=== PATIENT | male | born 2000 | race African-American/Black ===

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

== ENCOUNTER 2023-10-18 13:53 | Inpatient (IN) | payer MEDICAID, OTHER ==
--- NOTE | 2023-10-18 14:27 | ED ---
General Adult HPI - General Chief complaint: Psychiatric Symptoms Stated complaint: Mental Health Time Seen by Provider: 10/18/23 14:00 Source: patient, police, RN notes reviewed, old records reviewed Mode of arrival: wheelchair Limitations: altered mental status - History of Present Illness Initial comments: This is a 23-year-old male who presents emergency Department in the custody of the police. According to the police patient was telling family he was kill somebody or kill himself. Patient was running around and screaming and completely out of control and they arrived and his aggression is so bad. Patient states she's been diagnosed with PTSD and schizophrenia. Doesn't take his medications and hasn't for 2 years. Patient denies any drug use. Patient denies any alcohol use. Patient told relatives that he wanted to kill himself by taking lots of pills. Patient was also talking a lot about the zodiac signs According to the officers and he made other bizarre statements the officers stated that they were unable to keep him on top but of anything.Stated the officers and other bizarre statements and the officers could not keep him on target - Related Data Home Medications Medication Instructions Recorded Confirmed No Known Home Medications 10/18/23 10/18/23 Allergies Allergy/AdvReac Type Severity Reaction Status Date / Time No Known Allergies Allergy Verified 10/18/23 15:55 Review of Systems ROS Statement: Those systems with pertinent positive or pertinent negative responses have been documented in the HPI. ROS Other: All systems not noted in ROS Statement are negative. Past Medical History Past Medical History: No Reported History History of Any Multi-Drug Resistant Organisms: None Reported Past Surgical History: Orthopedic Surgery Additional Past Surgical History / Comment(s): oral surgery Past Anesthesia/Blood Transfusion Reactions: No Reported Reaction Past Psychological History: PTSD, Schizophrenia Smoking Status: Vaper Past Alcohol Use History: Occasional Past Drug Use History: Marijuana - Past Family History Father Family Medical History: Hyperlipidemia Family Family Medical History: No Reported History General Exam - General Exam Comments Initial Comments: GENERAL: Patient is well-developed and well-nourished. Patient is nontoxic and well- hydrated and is in mild distress. ENT: Neck is soft and supple. No significant lymphadenopathy is noted. Oropharynx is clear. Moist mucous membranes. Neck has full range of motion without eliciting any pain. EYES: The sclera were anicteric and conjunctiva were pink and moist. Extraocular movements were intact and pupils were equal round and reactive to light. Eyelids were unremarkable. PULMONARY: Unlabored respirations. Good breath sounds bilaterally. No audible rales rhonchi or wheezing was noted. CARDIOVASCULAR: There is a regular rate and rhythm without any murmurs gallops or rubs. ABDOMEN: Soft and nontender with normal bowel sounds. SKIN: Skin is clear with no lesions or rashes and otherwise unremarkable. NEUROLOGIC: Patient is alert and oriented x3. Cranial nerves II through XII are grossly intact. Motor and sensory are also intact. Normal speech, volume and content. Symmetrical smile. MUSCULOSKELETAL: Normal extremities with adequate strength and full range of motion. LYMPHATICS: No significant lymphadenopathy is noted PSYCHIATRIC: Normal psychiatric evaluation. Limitations: altered mental status Course Vital Signs 10/18/23 13:57 Temperature 98.9 F Pulse Rate 61 Respiratory 20 Rate Blood Pressure 148/118 O2 Sat by Pulse 100 Oximetry Medical Decision Making - Medical Decision Making Was pt. sent in by a medical professional or institution (, PA, [employer], urgent care, hospital, or [facility]...) When possible be specific @ -Patient was brought in in police custody Did you speak to anyone other than the patient for history (EMS, parent, family, police, friend...)? What history was obtained from this source @ -Police officers gave all the history Did you review nursing and triage notes (agree or disagree)? Why? @ -I reviewed and agree with nursing and triage notes Were old charts reviewed (outside hosp., previous admission, EMS record, old EKG, old radiological studies, urgent care reports/EKG's, [facility] records)? Report findings @ -I have reviewed prior charts in prior admissions on this patient Differential Diagnosis (chest pain, altered mental status, abdominal pain women, abdominal pain men, vaginal bleeding, weakness, fever, dyspnea, syncope, headache, dizziness, GI bleed, back pain, seizure, CVA, palpatations, mental health, musculoskeletal)? @ -Differential Mental Health Depression, anxiety, bipolar, psychosis, schizophrenia, borderline personality, situational depression, adjustment disorder, behavioral disorder, brain tumor, malingering, substance abuse, encephalopathy, medication reaction, dementia, hypothyroidism, degenerative neurologic disorder, lupus.... This is not meant to be all-inclusive list EKG interpreted by me (3pts min.). @ -As above X-rays interpreted by me (1pt min.). @ -None done CT interpreted by me (1pt min.). @ -None done U/S interpreted by me (1pt. min.). @ -None done What testing was considered but not performed or refused? (CT, X-rays, U/S, labs)? Why? @ -None What meds were considered but not given or refused? Why? @ -None Did you discuss the management of the patient with other professionals (professionals i.e. , PA, [employer], lab, RT, psych nurse, social welfare clerk, mounter saxophones, teacher, aviation ordnance officer, pillowcase cleaner)? Give summary @ -I spoke with the psychiatric nurse Was smoking cessation discussed for >3mins.? @ -No Was critical care preformed (if so, how long)? @ -No Were there social determinants of health that impacted care today? How? (Homelessness, low income, unemployed, alcoholism, drug addiction, transportation, low edu. Level, literacy, decrease access to med. care, senior care, rehab)? @ -No Was there de-escalation of care discussed even if they declined (Discuss DNR or withdrawal of care, Hospice)? DNR status @ -No What co-morbidities impacted this encounter? (DM, HTN, Smoking, COPD, CAD, Cancer, CVA, ARF, Chemo, Hep., AIDS, mental health diagnosis, sleep apnea, morbid obesity)? @ -None Was patient admitted / discharged? Hospital course, mention meds given and route, prescriptions, significant lab abnormalities, going to OR and other pertinent info. @ -I evaluated patient initially and then EPS evaluated the patient spoke with the psychiatrist agreed the patient needed to be admitted but he will be transferred to another psych facility where they have room. Patient was continuing to the obnoxious yelling out and somewhat aggressive so patient was given Geodon abdomen the emergency department he was resting comfortably. I filled out a clinical certification this patient for his admission. Undiagnosed new problem with uncertain prognosis? @ -No Drug Therapy requiring intensive monitoring for toxicity (Heparin, Nitro, Insulin, Cardizem)? @ -No Were any procedures done? @ -No Diagnosis/symptom? @ -Acute psychosis Acute, or Chronic, or Acute on Chronic? @ -Acute Uncomplicated (without systemic symptoms) or Complicated (systemic symptoms)? @ -Complicated Side effects of treatment? @ -No Exacerbation, Progression, or Severe Exacerbation? @ -No Poses a threat to life or bodily function? How? (Chest pain, [place], [place], pneumonia, PE, COPD, DKA, ARF, appy, cholecystitis, CVA, Diverticulitis, Homicidal, Suicidal, threat to staff... and all critical care pts) @ -No Disposition Clinical Impression: Psychosis Disposition: TRANSFER TO PSYCH HOSP/UNIT Referrals: None,Stated [Primary Care Provider] - 1-2 days Time of Disposition: 19:14
[2023-10-18] MEDS ORDERED: ZIPRASIDONE 20 MG VIAL IM STA (14:37)
[2023-10-18] MEDS ORDERED: LORazepam 2 MG/ML INJ IM STA (14:38)
[2023-10-19 10:17] LABS: Amphetamine Screen,Urine Not Detected (NotDetected); Barbiturate Screen,Urine Not Detected (NotDetected); Benzodiazepines Screen,Urine Detected (NotDetected); Cocaine Screen,Urine Not Detected (NotDetected); Methadone Screen, Urine Not Detected (NotDetected); Opiate Screen,Urine Not Detected (NotDetected); Oxycodone Screen, Urine Not Detected (NotDetected); Phencyclidine Screen,Urine Not Detected (NotDetected); Tricyclic Antidepressant,Urine Not Detected (NotDetected); Urn Cannabinoid Scrn Detected (NotDetected)
[2023-10-19] MEDS ORDERED: LORazepam 2 MG/ML INJ IM PRN (15:21)
[2023-10-19] MEDS ORDERED: LORazepam 1 MG TAB PO PRN (15:21)
[2023-10-19] MEDS ORDERED: IBUPROFEN 600 MG TAB PO PRN (15:21)
[2023-10-19] MEDS ORDERED: MAGNESIUM HYDROXIDE 2,400 MG/30 ML CUP PO PRN (15:21)
[2023-10-19] MEDS ORDERED: HALOPERIDOL LACTATE 5 MG/ML 1 ML VIAL IM PRN (15:21)
[2023-10-20 00:08] LABS: Amorphous Sediment,Urine Few /hpf; Appearance,Urine Turbid (Clear); Bacteria,Urine Rare /hpf; Bilirubin,Urine Negative (Negative); Blood,Urine Small (Negative); Calcium Oxalate Crystals,Urine Few /hpf; Color,Urine Yellow; Glucose,Urine (UA) Negative (Negative); Ketones,Urine Negative (Negative); Leukocyte Esterase,Urine Moderate (Negative); Mucus,Urine Occasional /hpf; Nitrite,Urine Negative (Negative); PH, Urine 5.5 (5.0-8.0); Protein,Urine Negative (Negative); RBC,Urine 2 /hpf (0-5); Specific Gravity,Urine 1.024 (1.001-1.035); Urobilinogen,Urine <2.0 mg/dL (<2.0); WBC,Urine 8 /hpf (0-5)
[2023-10-20] MEDS: NICOTINE 14MG/24HR PATCH TRANSDERM SCH (09:12)
[2023-10-20] MEDS ORDERED: traZODone HCL 50 MG TAB PO PRN (11:50)
[2023-10-20] MEDS ORDERED: LORazepam 1 MG TAB PO PRN (11:50)
--- NOTE | 2023-10-20 12:28 | P.HP ---
Psychiatric H&P - . H&P Date: 10/20/23 History & Physical: Allergies Allergy/AdvReac Type Severity Reaction Status Date / Time No Known Allergies Allergy Verified 10/18/23 15:55 Vital Signs Temp 97.2 F L 10/19/23 17:52 Pulse 64 10/19/23 17:52 Resp 16 10/19/23 17:52 BP 158/70 10/19/23 17:52 Pulse Ox 98 10/19/23 17:52 FiO2 Intake & Output 10/19/23 10/20/23 10/20/23 18:59 06:59 18:59 Weight 65.034 kg Laboratory Last Values Urine Color Yellow 10/19/23 22:44 Urine Appearance Turbid (Clear) 10/19/23 22:44 Urine pH 5.5 (5.0-8.0) 10/19/23 22:44 Ur Specific [place] 1.024 (1.001-1.035) 10/19/23 22:44 Urine Protein Negative (Negative) 10/19/23 22:44 Urine Glucose (UA) Negative (Negative) 10/19/23 22:44 Urine Ketones Negative (Negative) 10/19/23 22:44 Urine Blood Small (Negative) H 10/19/23 22:44 Urine Nitrite Negative (Negative) 10/19/23 22:44 Urine Bilirubin Negative (Negative) 10/19/23 22:44 Urine Urobilinogen <2.0 mg/dL (<2.0) 10/19/23 22:44 Ur Leukocyte Esterase Moderate (Negative) H 10/19/23 22:44 Urine RBC 2 /hpf (0-5) 10/19/23 22:44 Urine WBC 8 /hpf (0-5) H 10/19/23 22:44 Calcium Oxalate Crystal Few /hpf (None) H 10/19/23 22:44 Amorphous Sediment Few /hpf (None) H 10/19/23 22:44 Urine Bacteria Rare /hpf (None) H 10/19/23 22:44 Urine Mucus Occasional /hpf (None) H 10/19/23 22:44 Urine Opiates Screen Not Detected (NotDetected) 10/19/23 09:00 Ur Oxycodone Screen Not Detected (NotDetected) 10/19/23 09:00 Urine Methadone Screen Not Detected (NotDetected) 10/19/23 09:00 Ur Propoxyphene Screen Not Detected (NotDetected) 10/19/23 09:00 Ur Barbiturates Screen Not Detected (NotDetected) 10/19/23 09:00 U Tricyclic Antidepress Not Detected (NotDetected) 10/19/23 09:00 Ur Phencyclidine Scrn Not Detected (NotDetected) 10/19/23 09:00 Ur Amphetamines Screen Not Detected (NotDetected) 10/19/23 09:00 U Methamphetamines Scrn Not Detected (NotDetected) 10/19/23 09:00 U Benzodiazepines Scrn Detected (NotDetected) H 10/19/23 09:00 Urine Cocaine Screen Not Detected (NotDetected) 10/19/23 09:00 U Marijuana (THC) Screen Detected (NotDetected) H 10/19/23 09:00 SARS-CoV-2 (PCR) Not Detected (Not Detectd) 10/19/23 13:20 10/20/23 10:00 IDENTIFYING DATA: This patient is a 23 year old male, no children, currently living with a friend, is employed [employer]. HISTORY OF PRESENT ILLNESS: As per ER note "This is a 23-year-old male who presents emergency Department in the custody of the police. According to the police patient was telling family he was kill somebody or kill himself. Patient was running around and screaming and completely out of control and they arrived and his aggression is so bad. Patient states she's been diagnosed with PTSD and schizophrenia. Doesn't take his medications and hasn't for 2 years. Patient denies any drug use. Patient denies any alcohol use. Patient told relatives that he wanted to kill himself by taking lots of pills. Patient was also talking a lot about the zodiac signs According to the officers and he made other bizarre statements the officers stated that they were unable to keep him on top but of anything.Stated the officers and other bizarre statements and the officers could not keep him on target". Patient says what brought him into the hospital this admission, is because he is depressed, and is "just that way as a person". his previous attempt at suicide was a "cry for help" Says he knows who shot and killed his cousin, and was trying to take that information to the scrap burner, and the police thinks he's crazy, and brought him in. patient is rambling, flight of ideas, loose associations. he is also tangential. Claims his mood has been "amazing" and has no anxiety, no HI/SI, no AH/VH. Claims his sleep is 'great" and his appetite is great. Denies use/need for psych medication, and historically has not been compliant with previous treatment. Patient agreed to be started on medication, and tech writer will monitor for side effects. Patient is on a current court. Patient admits to using vaping and using marijuana, and was counseled on obstaining. PAST PSYCHIATRIC HISTORY: Patient has a a history of schizophrenia and cannabis use disorder. Patient denies being on any psychiatric medications. Patient was last seen at [facility] by Dr Baker in March of this year, and currently not taking any medications. he was previously on Abilify Maintenna 400 mg IM through [facility] however has not been taking it for several months. Patient has prior suicide attempts in the past, patient [place] the bridge [place] With last admission to the [facility] in January of this year. Past Medical History: No Reported History History of Any Multi-Drug Resistant Organisms: None Reported Past Surgical History: Orthopedic Surgery Past Anesthesia/Blood Transfusion Reactions: No Reported Reaction Past Psychological History: PTSD, depression. Smoking Status: Never smoker ALLERGIES: as per EMR. CHEMICAL DEPENDENCY HISTORY: as per HPI. FAMILY PSYCHIATRIC/SUBSTANCE USE HISTORY: denies SOCIAL HISTORY: Patient was born and raised in [facility]. He states that he completed high school. States that he works [employer] boarding passing. He states that he now lives with a friend. He denies any legal history. MENTAL STATUS EXAM: General Appearance: Patient appears to be stated age is alert, short hair, estrada, athletic. Patient appears to have good hygiene and grooming wearing street clothes, good eye contact. Behavior: Patient is calmly seated without any agitated behavior. Rambling, difficult to redirect. Speech: Patient's speech is fluent and nonpressured. Mood/Affect: Patient reports their mood is "great", affect is incongruent Suicidality/Homicidality: Patient denies having any suicidal or homicidal ideation intent or plan. Perceptions: Patient denies any visual hallucinations and denies any auditory hallucinations Though content/process: There is no evidence of any delusional thought content. The patient is rambling, tangential, loose associations, flight of ideas. Memory and concentration: AOX3, grossly intact for the purposes of this session. Can spell "WORLD" backwards Judgment and insight: poor/superficial. IMPRESSIONS: Schizoaffective disorder Cannabis use disorder Nicotine dependence STRENGTHS/WEAKNESSES: strength is that patient is resilient. Weakness is that patient has is impulsive INTELLECT: average PLAN: -Patient is admitted under involuntary status to MHU for stabilization of psychiatric symptoms and safety. Patient is on a current court order.Patient signed medication consent, and was placed in patients chart. -Medications : Will start patient on abilify po 7.5 mg daily for psychosis/mood stabilization. plan to transition patient back onto IRAHETA prior to d/c to ensure compliance. trazodone 50 mg prn qhs for insomnia. -Ativan and Haldol PRN for agitation/aggression -Patient was counselled on substance abuse and desired to cut back on use -Patient was informed of the risks, benefits and side effects of the medication -Internal Medicine consult to perform medical evaluation and physical. -NRT - nicotine patch -SW on board for discharge planning. Encourage patient to participate in groups to work on coping skills. Patient is on a current court order.
[2023-10-20] MEDS: ARIPiprazole 5 MG TAB PO SCH (13:38)
[2023-10-20 14:18] LABS: Basophils % (A) 1 %; Eosinophils % (A) 1 %; HCT 46.9 % (39.0-53.0); HGB 15.6 gm/dL (13.0-17.5); Lymphocytes # (A) 1.3 k/uL (1.0-4.8); Lymphocytes % (A) 23 %; MCH 27.9 pg (25.0-35.0); MCHC 33.2 g/dL (31.0-37.0); MCV 83.9 fL (80.0-100.0); Monocytes # (A) 0.2 k/uL (0-1.0); Monocytes % (A) 3 %; Neutrophils # (A) 4.1 k/uL (1.3-7.7); Neutrophils % (A) 71 %; Platelet Count 208 k/uL (150-450); RBC 5.59 m/uL (4.30-5.90); RDW 13.2 % (11.5-15.5); WBC 5.8 k/uL (3.8-10.6)
[2023-10-20 14:27] LABS: ALT 25 U/L (4-49); AST 51 U/L (17-59); African American GFR (CKD) >90 (>60 ml/min/1.73 sqM); Albumin 4.9 g/dL (3.5-5.0); Alkaline Phosphatase 71 U/L (38-126); Anion Gap 16 mmol/L; Blood Urea Nitrogen 11 mg/dL (9-20); Calcium 9.9 mg/dL (8.4-10.2); Carbon Dioxide 21 mmol/L (22-30); Chloride 102 mmol/L (98-107); Glucose 159 mg/dL (74-99); Non-African American GFR(CKD) >90 (>60 ml/min/1.73 sqM); Potassium 4.6 mmol/L (3.5-5.1); Sodium 139 mmol/L (137-145); Total Bilirubin 0.7 mg/dL (0.2-1.3); Total Protein 7.9 g/dL (6.3-8.2)
[2023-10-20 20:27] LABS: Chol/HDL Ratio 1.75 Ratio; LDL Cholesterol,Calculated 39.5 mg/dL (0.0-131.0); VLDL Calculation 6.04 mg/dL (5.00-40.00)
[2023-10-20] MEDS: haloperidoL 5 MG TAB PO PRN (22:21)
--- NOTE | 2023-10-21 02:11 | P.PN ---
Progress Note - Text Progress Note Date: 10/21/23 Attempted to see the patient in the mental health unit. Informed by the mental health unit RN that the patient is currently sedated and not appropriate for evaluation.
[2023-10-21] MEDS: ARIPiprazole 5 MG TAB PO SCH (07:45)
[2023-10-21] MEDS: NICOTINE 14MG/24HR PATCH TRANSDERM SCH (07:45)
--- NOTE | 2023-10-21 10:33 | P.PN ---
Progress Note - Text Progress Note Date: 10/21/23 Interval History: Patient was seen wandering the hallways and was directable and agreeable to sp heber with flex o writer operator in the office. Patient says he feels amazing, and is going to groups regularly. States his appetite is great. Patient still continues to ramble at times. he continues to be tangetial and have loose assocaitions and refers flex o writer operator back to how he was feeling in "2020". Patient continues to have poor insight and judgment, improving mildly. At this time patient denies any suicidal or homical ideations, intent or plan. Patient denies any auditory, visual hallucinations and denies any paranoia or delusions. Patient denies any side effects from the medications and has been compliant with meds. patient recieved haldol and ativan prn last night however was not documented what had occured and patient states that he needed it "too sleep". Mental Status Exam: General Appearance: Patient appears to be stated age is alert, short hair, estrada, athletic. Patient appears to have good hygiene and grooming wearing street clothes, good eye contact. Behavior: [Patient is calmly seated without any agitated behavior. Rambling, difficult to redirect. Improving mildly Speech: Patient's speech is fluent and nonpressured. Mood/Affect: Mood is improving mildly, affect is congruent and constricted. Suicidality/Homicidality: Patient denies having any suicidal or homicidal ideation intent or plan. Perceptions: Patient denies any visual hallucinations and denies any auditory hallucinations Though content/process: [There is no evidence of any delusional thought content and thought process is linear and goal-directed. The patient is rambling, tangential, loose associations, flight of ideas. Improving mildly Memory and concentration: AOX3, grossly intact for the purposes of this session Judgment and insight: Poor/superficial, improving mildly Assessment Schizoaffective disorder Cannabis use disorder Nicotine dependence Plan: -Patient continues to meet criteria for inpatient psychiatric admission for symptom stabilization and safety. Patient is on a current court order has signed the medication consent and it was placed in the patient's chart -Medications: increase abilify po 10 mg daily for psychosis/mood stabilization. plan to transition patient back onto IRAHETA prior to d/c to ensure compliance. increase trazodone 100 mg prn qhs for insomnia. -When necessary Ativan and Haldol for agitation/aggression. -NRT - [nicotine patch] -SW on board for discharge planning. Encouraged the patient to participate in milieu. Patient is on a court order
[2023-10-21] MEDS ORDERED: LORazepam 1 MG TAB PO STA (11:49)
[2023-10-21] MEDS ORDERED: traZODone HCL 100 MG TAB PO SCH (21:00)
[2023-10-22] MEDS: NICOTINE 14MG/24HR PATCH TRANSDERM SCH (08:17)
[2023-10-22] MEDS ORDERED: ARIPiprazole 10 MG TAB PO SCH (09:00)
[2023-10-22] MEDS: haloperidoL 5 MG TAB PO PRN (10:14)
[2023-10-22] MEDS: LORazepam 1 MG TAB PO PRN (10:14)
--- NOTE | 2023-10-22 10:47 | P.PN ---
Progress Note - Text Progress Note Date: 10/22/23 Interval History: Patient was seen wandering the hallways and was directable and agreeable to sp heber with typewriters functional tester in the office. Patient says he feels ok, but irritated today, from lack of sleep. Patient is going to groups regularly. States his appetite is good. Patient still continues to ramble at times, however is improving.Patient continues to have poor insight and judgment, improving mildly. Patient claims his sleep was not too good last night. At this time patient denies any suicidal or homical ideations, intent or plan. Patient denies any auditory, visual hallucinations and denies any paranoia or delusions. Patient denies any side effects from the medications and has been compliant with meds. Mental Status Exam: General Appearance: Patient appears to be stated age is alert, short hair, estrada, athletic. Patient appears to have good hygiene and grooming wearing street clothes, good eye contact. Behavior: Patient is calmly seated without any agitated behavior. Rambling, difficult to redirect. Improving mildly Speech: Patient's speech is fluent and nonpressured. Mood/Affect: Mood is improving mildly, affect is congruent and constricted. Suicidality/Homicidality: Patient denies having any suicidal or homicidal ideation intent or plan. Perceptions: Patient denies any visual hallucinations and denies any auditory hallucinations Though content/process: There is no evidence of any delusional thought content and thought process is linear and goal-directed. The patient is rambling, Improving mildly Memory and concentration: AOX3, grossly intact for the purposes of this session Judgment and insight: Poor/superficial, improving mildly Assessment Schizoaffective disorder Cannabis use disorder Nicotine dependence Plan: -Patient continues to meet criteria for inpatient psychiatric admission for symptom stabilization and safety. Patient is on a current court order has signed the medication consent and it was placed in the patient's chart -Medications: increase abilify po 15 mg daily for psychosis/mood stabilization. plan to transition patient back onto IRAHETA prior to d/c to ensure compliance likely over the weekend. increase trazodone 150 mg qhs for insomnia. Add benedryl 25 qhs for sleep. -When necessary Ativan and Haldol for agitation/aggression. -NRT - [nicotine patch] -SW on board for discharge planning. Encouraged the patient to participate in milieu. Patient is on a court order. Likely discharge early next week likely wednesday vs wednesday?
[2023-10-22] MEDS: ACETAMINOPHEN TAB 325 MG TAB PO PRN (13:06)
[2023-10-22] MEDS: traZODone HCL 50 MG TAB PO SCH (20:28)
[2023-10-23 07:17] VITALS: RESP 16
[2023-10-23] MEDS: NICOTINE 14MG/24HR PATCH TRANSDERM SCH (08:17)
[2023-10-23] MEDS: ARIPiprazole 15 MG TAB PO SCH (08:18)
--- NOTE | 2023-10-23 09:25 | P.PN ---
Progress Note - Text Progress Note Date: 10/23/23 Interval History: Patient was seen wandering the hallways and was directable and agreeable to angie buck with abstract writer in the office. Patient claims that he feels a bit better today. Claims that he wanted to take just 1 tablet of the trazodone at nighttime however was given 350 mg tablets. He states that other night he slept well, has been going to some groups. Appears to be more goal oriented and less bizarre during conversation. Less focused on discharge today. Denying any anxiety. At this time patient denies any suicidal or homical ideations, intent or plan. Patient denies any auditory, visual hallucinations and denies any paranoia or delusions. Patient denies any side effects from the medications and has been compliant with meds. Mental Status Exam: General Appearance: Patient appears to be stated age is alert, short hair, estrada, athletic. Patient appears to have good hygiene and grooming wearing street clothes, improving eye contact. Behavior: Patient is calmly seated without any agitated behavior. less Rambling Speech: Patient's speech is fluent and nonpressured. Mood/Affect: Mood is improving mildly, affect is congruent and constricted. Suicidality/Homicidality: Patient denies having any suicidal or homicidal ideation intent or plan. Perceptions: Patient denies any visual hallucinations and denies any auditory hallucinations Though content/process: There is no evidence of any delusional thought content and thought process is linear and goal-directed. Memory and concentration: AOX3, grossly intact for the purposes of this session Judgment and insight: Poor/superficial, improving mildly Assessment Schizoaffective disorder Cannabis use disorder Nicotine dependence Plan: -Patient continues to meet criteria for inpatient psychiatric admission for symptom stabilization and safety. Patient is on a current court order has signed the medication consent and it was placed in the patient's chart -Medications: abilify po 15 mg daily for psychosis/mood stabilization. plan to transition patient back onto IRAHETA prior to d/c to ensure compliance likely over the weekend. trazodone 150 mg qhs for insomnia. Add benedryl 25 qhs for sleep. -When necessary Ativan and Haldol for agitation/aggression. -NRT - [nicotine patch] -SW on board for discharge planning. Encouraged the patient to participate in milieu. Patient is on a court order. Likely discharge early next week likely wednesday vs wednesday?
[2023-10-23] MEDS: MAG HYDROX/AL HYDROX/SIMETH 30 ML CUP PO PRN (11:17)
[2023-10-23] MEDS: traZODone HCL 50 MG TAB PO SCH (21:40)
[2023-10-24] MEDS: NICOTINE 14MG/24HR PATCH TRANSDERM SCH (08:31)
[2023-10-24] MEDS: ARIPiprazole 15 MG TAB PO SCH (08:31)
[2023-10-24] MEDS ORDERED: diphenhydrAMINE 25 MG CAP PO PRN (11:15)
--- NOTE | 2023-10-24 11:25 | P.PN ---
Progress Note - Text Progress Note Date: 10/24/23 Interval History: Patient was seen wandering the hallways and also sitting in on in the lounge w ith other patients and was directable and agreeable to speak with com writer in the office. Patient appears to be more directable today, claims that he is feeling better. States that he only took 2 tablets of the trazodone last night. Loom Repairer spoke with him about looking at the dosages rather in the amount of tablets as patient Referred into the Different Tablets That He Took of Trazodone in the pas t. He Claims That He Is Doing a Bit Better and Patient claims that he feels a bit better today. He states that he slept fairly last night, wants to have his trazodone cut down. he is less focused on discharge today. Denying any anxiety. At this time patient denies any suicidal or homical ideations, intent or plan. Patient denies any auditory, visual hallucinations and denies any paranoia or delusions. Patient denies any side effects from the medications and has been compliant with meds. Mental Status Exam: General Appearance: Patient appears to be stated age is alert, short hair, estrada, athletic. Patient appears to have good hygiene and grooming wearing street clothes, improving eye contact. Behavior: Patient is calmly seated without any agitated behavior. less Rambling Speech: Patient's speech is fluent and nonpressured. Mood/Affect: Mood is improving mildly, affect is congruent and constricted. Suicidality/Homicidality: Patient denies having any suicidal or homicidal ideation intent or plan. Perceptions: Patient denies any visual hallucinations and denies any auditory hallucinations Though content/process: There is no evidence of any delusional thought content and thought process is linear and goal-directed. Memory and concentration: AOX3, grossly intact for the purposes of this session Judgment and insight: improving mildly Assessment Schizoaffective disorder Cannabis use disorder Nicotine dependence Plan: -Patient continues to meet criteria for inpatient psychiatric admission for symptom stabilization and safety. Patient is on a current court order has si gned the medication consent and it was placed in the patient's chart -Medications: abilify po 15 mg daily for psychosis/mood stabilization. plan to transition patient back onto IRAHETA prior to d/c to ensure compliance likely over the weekend. decrease trazodone 100 mg qhs for insomnia. Add benedryl 25 qhs for sleep. -When necessary Ativan and Haldol for agitation/aggression. -NRT - [nicotine patch] -SW on board for discharge planning. Encouraged the patient to participate in milieu. Patient is on a court order. Likely discharge wednesday vs wednesday once patient transitions back onto IRAHETA.
[2023-10-24] MEDS: ACETAMINOPHEN TAB 325 MG TAB PO PRN (18:25)
[2023-10-24] MEDS ORDERED: traZODone HCL 100 MG TAB PO SCH (21:00)
[2023-10-25] MEDS: MAG HYDROX/AL HYDROX/SIMETH 30 ML CUP PO PRN (06:28)
[2023-10-25] MEDS: LORazepam 1 MG TAB PO PRN (06:49)
[2023-10-25] MEDS: ARIPiprazole 15 MG TAB PO SCH (09:02)
[2023-10-25] MEDS: NICOTINE 14MG/24HR PATCH TRANSDERM SCH (09:02)
[2023-10-25] MEDS ORDERED: MIRTAZAPINE 15 MG TAB PO PRN (11:23)
--- NOTE | 2023-10-25 11:33 | P.PN ---
Progress Note - Text Progress Note Date: 10/25/23 Patient was seen wandering the hallways and agreeable to speak with song writer in the office. Patient claims that is is 'pretty good' today. He states that he was very restless last night, and needed medication to sleep, then felt it was too much medication, and was having tightness in his chest and felt like he was going to . he had an ecg done last night which was reviewed. Patient claims to be getting along with his peers well, and is going to groups. Patient focused on discharge, and is continuing to minimize his need for treatment, which is mildly improving. Denying any anxiety or depression. At this time patient denies any suicidal or homical ideations, intent or plan. Patient denies any auditory, visual hallucinations and denies any paranoia or delusions. Patient denies any side effects from the medications and has been compliant with meds. Spoke with patient about transitioning him onto a IRAHETA today to ensure compliance and patient agreed to take this today. Mental Status Exam: General Appearance: Patient appears to be stated age is alert, short hair, estrada, athletic. Patient appears to have good hygiene and grooming wearing street clothes, improving eye contact. Behavior: Patient is calmly seated without any agitated behavior. less Rambling Speech: Patient's speech is fluent and nonpressured. Mood/Affect: Mood is improving mildly, affect is congruent and constricted. Suicidality/Homicidality: Patient denies having any suicidal or homicidal ideation intent or plan. Perceptions: Patient denies any visual hallucinations and denies any auditory hallucinations Though content/process: There is no evidence of any delusional thought content and thought process is linear and goal-directed. Memory and concentration: AOX3, grossly intact for the purposes of this session Judgment and insight: improving Assessment Schizoaffective disorder Cannabis use disorder Nicotine dependence Plan: -Patient continues to meet criteria for inpatient psychiatric admission for symptom stabilization and safety. Patient is on a current court order has signed the medication consent and it was placed in the patient's chart -Medications: abilify po 15 mg daily for psychosis/mood stabilization. decrease trazodone 50mg qhs for insomnia. benedryl 25 qhs for sleep. Add Remeron 15mg qhs prn. Abilify Maintana 400mg qmonthly, starting today. -When necessary Ativan and Haldol for agitation/aggression -NRT - [nicotine patch] -SW on board for discharge planning. Encouraged the patient to participate in milieu. Patient is on a court order. Likely discharge wednesday or wednesday if patient is improving.
[2023-10-25] MEDS ORDERED: ARIPiprazole IM 400 MG VIAL (NO COST) PHARMACY STOCK IM ONE (12:00)
[2023-10-25] MEDS ORDERED: traZODone HCL 50 MG TAB PO SCH (21:00)
[2023-10-26 06:30] VITALS: BP 120/59; PULSE 66; TEMP 97.8
[2023-10-26] MEDS: NICOTINE 14MG/24HR PATCH TRANSDERM SCH (07:15)
[2023-10-26] MEDS: ARIPiprazole 15 MG TAB PO SCH (08:14)
--- NOTE | 2023-10-26 11:52 | P.DS ---
Providers Date of admission: 10/19/23 15:17 Expected date of discharge: 10/26/23 Attending physician: Mata Peterson MD Consults: 10/19/23 15:21 Consult Physician Routine Consulting Provider: Za Flynn Consult Reason/Comments: H&P and medical Do you want consulting provider notified?: Yes Primary care physician: Stated None - Discharge Diagnosis(es) (1) Schizoaffective disorder Current Visit: Yes Status: Acute Priority: High (2) Cannabis use disorder Current Visit: Yes Status: Acute Priority: Medium (3) Nicotine dependence Current Visit: Yes Status: Acute Priority: Low Hospital Course: Admission HPI: Admission note was completed by display card writer "This is a 23-year-old male who presents emergency Department in the custody of the police. According to the police patient was telling family he was kill somebody or kill himself. Patient was running around and screaming and completely out of control and they arrived and his aggression is so bad. Patient states she's been diagnosed with PTSD and schizophrenia. Doesn't take his medications and hasn't for 2 years. Patient denies any drug use. Patient denies any alcohol use. Patient told relatives that he wanted to kill himself by taking lots of pills. Patient was also talking a lot about the zodiac signs According to the officers and he made other bizarre statements the officers stated that they were unable to keep him on top but of anything.Stated the officers and other bizarre statements and the officers could not keep him on target". Patient says what brought him into the hospital this admission, is because he is depressed, and is "just that way as a person". his previous attempt at suicide was a "cry for help" Says he knows who shot and killed his cousin, and was trying to take that information to the bingo manager, and the police thinks he's crazy, and brought him in. patient is rambling, flight of ideas, loose associations. he is also tangential. Claims his mood has been "amazing" and has no anxiety, no HI/SI, no AH/VH. Claims his sleep is 'great" and his appetite is great. Denies use/need for psych medication, and historically has not been compliant with previous treatment. Patient agreed to be started on medication, and display card writer will monitor for side effects. Patient is on a current court. Patient admits to using vaping and using marijuana, and was counseled on obstaining." Hospital course: Upon admission to the unit patient was [admitted involuntarily on an active court order for mental health treatment. Patient was initially bizarre however with time and treatment he eventually got along well with other patients on the unit and followed unit protocol. Patient was compliant with the medications and denied any side effects throughout hospital course. Patient was started on Abilify increased her dose of 50 mg by mouth for psychosis/mood stabilization. Patient was agreeable to be transitioned back onto Abilify Maintenna 400 mg IM given on 10/25, next dose will be due in one month on 11/19. Trazodone was decreased down to a dose of 50 mg daily at bedtime for insomnia/mood. Patient spoke of his stressors and engaged in therapy both group and individual. Patient was also seen by medical team for history and physical exam. Throughout the course of the hospitalization patient gradually improved with regards to mood, anxiety, mood stabilization, sleep and returned back to their baseline level of functioning. On the day of discharge patient denied any suicidal or homicidal ideations intent or plan denied any auditory or visual hallucinations. Patient endorsed wanting to live for his health and family. The patient denied any access to guns or weapons. Patient denied any paranoia and did not endorse any delusions. Patient does have a significant history of substance abuse and was counseled on abstaining from all substances including alcohol and marijuana. Patient elected to do outpatient substance use treatment program through [facility]. Patient was also counseled on the medications and need for regular compliance and was encouraged to follow-up with their outpatient appointment for mental health and also for primary care. Prior to discharge a family meeting will be arranged by social science analyst to answer any questions and ensure safety upon discharge. Patient will be discharged today back to his girlfriend's house and close [facility] follow-up. Mental status exam on day discharge: General Appearance: Patient appears to be stated age is alert, short hair, estrada, athletic. Patient appears to have good hygiene and grooming wearing street clothes, good eye contact. Behavior: Patient is calmly seated without any agitated behavior. Speech: Patient's speech is fluent and nonpressured. Mood/Affect: Patient reports their mood is "good", affect is congruent Suicidality/Homicidality: Patient denies having any suicidal or homicidal ideation intent or plan. Perceptions: Patient denies any visual hallucinations and denies any auditory hallucinations Though content/process: There is no evidence of any delusional thought content. more goal oriented and logical. Memory and concentration: AOX3, grossly intact for the purposes of this session. Can spell "WORLD" backwards Judgment and insight: improving mildly. Impression: Schizoaffective disorder Cannabis use disorder Nicotine dependence Plan: -Continue with discharge today as patient has improved and stabilized psychiatrically and is not currently an imminent threat to himself and/or others. Patient will remain at chronically elevated risk for harm to self and/or others due to his impulsivity and substance abuse. -Continue medications: Abilify by mouth 15 mg po for 13 more days and discontinue. Patient was given Abilify Maintenna 400 mg IM on 10/25, next dose will be due in one month on 10/20. Trazodone 50 mg daily at bedtime for insomnia/mood. -Patient was counseled on the need for medication compliance and appropriate follow-up at mental health and also primary care for medical issues. Patient verbalized understanding and agreed. -Social work to arrange for and conduct family meeting to ensure safety upon discharge and answer any questions/concerns. Social work also to arrange for patients follow up appointments with [facility] for psychiatric care along with follow up with primary care provider. -Patient counseled on abstaining from recreational drugs and marijuana and alcohol. Was informed/educated on the adverse effects on their physical and mental health. Patient verbally agreed and understood. -Patient was instructed to return to the hospital or seek immediate medical care if their psychiatric or medical symptoms do worsen or reoccur. Allergies Allergy/AdvReac Type Severity Reaction Status Date / Time No Known Allergies Allergy Verified 10/18/23 15:55 Laboratory Results WBC 5.8 k/uL (3.8-10.6) 10/20/23 13:40 RBC 5.59 m/uL (4.30-5.90) 10/20/23 13:40 Hgb 15.6 gm/dL (13.0-17.5) 10/20/23 13:40 Hct 46.9 % (39.0-53.0) 10/20/23 13:40 MCV 83.9 fL (80.0-100.0) 10/20/23 13:40 MCH 27.9 pg (25.0-35.0) 10/20/23 13:40 MCHC 33.2 g/dL (31.0-37.0) 10/20/23 13:40 RDW 13.2 % (11.5-15.5) 10/20/23 13:40 Plt Count 208 k/uL (150-450) 10/20/23 13:40 MPV 8.0 10/20/23 13:40 Neutrophils % 71 % 10/20/23 13:40 Lymphocytes % 23 % 10/20/23 13:40 Monocytes % 3 % 10/20/23 13:40 Eosinophils % 1 % 10/20/23 13:40 Basophils % 1 % 10/20/23 13:40 Neutrophils # 4.1 k/uL (1.3-7.7) 10/20/23 13:40 Lymphocytes # 1.3 k/uL (1.0-4.8) 10/20/23 13:40 Monocytes # 0.2 k/uL (0-1.0) 10/20/23 13:40 Eosinophils # 0.0 k/uL (0-0.7) 10/20/23 13:40 Basophils # 0.0 k/uL (0-0.2) 10/20/23 13:40 Sodium 139 mmol/L (137-145) 10/20/23 13:40 Potassium 4.6 mmol/L (3.5-5.1) 10/20/23 13:40 Chloride 102 mmol/L (98-107) 10/20/23 13:40 Carbon Dioxide 21 mmol/L (22-30) L 10/20/23 13:40 Anion Gap 16 mmol/L 10/20/23 13:40 BUN 11 mg/dL (9-20) 10/20/23 13:40 Creatinine 0.76 mg/dL (0.66-1.25) 10/20/23 13:40 Est GFR (CKD-EPI)AfAm >90 (>60 ml/min/1.73 sqM) 10/20/23 13:40 Est GFR (CKD-EPI)NonAf >90 (>60 ml/min/1.73 sqM) 10/20/23 13:40 Glucose 159 mg/dL (74-99) H 10/20/23 13:[address] Glu mg/dL 114 mg/dL 10/20/23 13:40 Hemoglobin A1c 5.6 % (<=6.0) 10/20/23 13:40 Calcium 9.9 mg/dL (8.4-10.2) 10/20/23 13:40 Total Bilirubin 0.7 mg/dL (0.2-1.3) 10/20/23 13:40 AST 51 U/L (17-59) 10/20/23 13:40 ALT 25 U/L (4-49) 10/20/23 13:40 Alkaline Phosphatase 71 U/L (38-126) 10/20/23 13:40 Total Protein 7.9 g/dL (6.3-8.2) 10/20/23 13:40 Albumin 4.9 g/dL (3.5-5.0) 10/20/23 13:40 Triglycerides 30.20 mg/dL (0.00-149.00) 10/20/23 13:40 Cholesterol 106.00 mg/dL (0.00-200.00) 10/20/23 13:40 LDL Cholesterol, Calc 39.5 mg/dL (0.0-131.0) 10/20/23 13:40 VLDL Cholesterol, Calc 6.04 mg/dL (5.00-40.00) 10/20/23 13:40 HDL Cholesterol 60.50 mg/dL (40.00-60.00) H 10/20/23 13:40 Cholesterol/HDL Ratio 1.75 Ratio 10/20/23 13:40 TSH 0.832 mIU/L (0.465-4.680) 10/20/23 13:40 Urine Color Yellow 10/19/23 22:44 Urine Appearance Turbid (Clear) 10/19/23 22:44 Urine pH 5.5 (5.0-8.0) 10/19/23 22:44 Ur Specific Wallace 1.024 (1.001-1.035) 10/19/23 22:44 Urine Protein Negative (Negative) 10/19/23 22:44 Urine Glucose (UA) Negative (Negative) 10/19/23 22:44 Urine Ketones Negative (Negative) 10/19/23 22:44 Urine Blood Small (Negative) H 10/19/23 22:44 Urine Nitrite Negative (Negative) 10/19/23 22:44 Urine Bilirubin Negative (Negative) 10/19/23 22:44 Urine Urobilinogen <2.0 mg/dL (<2.0) 10/19/23 22:44 Ur Leukocyte Esterase Moderate (Negative) H 10/19/23 22:44 Urine RBC 2 /hpf (0-5) 10/19/23 22:44 Urine WBC 8 /hpf (0-5) H 10/19/23 22:44 Calcium Oxalate Crystal Few /hpf (None) H 10/19/23 22:44 Amorphous Sediment Few /hpf (None) H 10/19/23 22:44 Urine Bacteria Rare /hpf (None) H 10/19/23 22:44 Urine Mucus Occasional /hpf (None) H 10/19/23 22:44 Urine Opiates Screen Not Detected (NotDetected) 10/19/23 09:00 Ur Oxycodone Screen Not Detected (NotDetected) 10/19/23 09:00 Urine Methadone Screen Not Detected (NotDetected) 10/19/23 09:00 Ur Propoxyphene Screen Not Detected (NotDetected) 10/19/23 09:00 Ur Barbiturates Screen Not Detected (NotDetected) 10/19/23 09:00 U Tricyclic Antidepress Not Detected (NotDetected) 10/19/23 09:00 Ur Phencyclidine Scrn Not Detected (NotDetected) 10/19/23 09:00 Ur Amphetamines Screen Not Detected (NotDetected) 10/19/23 09:00 U Methamphetamines Scrn Not Detected (NotDetected) 10/19/23 09:00 U Benzodiazepines Scrn Detected (NotDetected) H 10/19/23 09:00 Urine Cocaine Screen Not Detected (NotDetected) 10/19/23 09:00 U Marijuana (THC) Screen Detected (NotDetected) H 10/19/23 09:00 SARS-CoV-2 (PCR) Not Detected (Not Detectd) 10/19/23 13:20 Vital Signs Temp 97.8 F 10/26/23 06:19 Pulse 66 10/26/23 06:19 Resp 16 11/27/23 06:50 BP 120/59 10/26/23 06:19 Pulse Ox 100 10/25/23 06:50 FiO2 Patient Condition at Discharge: Stable Plan - Discharge Summary Discharge Rx Participant: No New Discharge Prescriptions: New traZODone HCL [Desyrel] 50 mg PO HS 30 Days #30 tab ARIPiprazole [Abilify] 15 mg PO DAILY 13 Days #13 tab Nicotine 14Mg/24Hr Patch [Habitrol] 1 patch TRANSDERM DAILY 14 Days #14 patch ARIPiprazole IM [Abilify Maintena] 400 mg IM QMONTHLY #1 each Discharge Medication List ARIPiprazole IM [Abilify Maintena] 400 mg IM QMONTHLY #1 each 10/26/23 [Rx] ARIPiprazole [Abilify] 15 mg PO DAILY 13 Days #13 tab 10/26/23 [Rx] Nicotine 14Mg/24Hr Patch [Habitrol] 1 patch TRANSDERM DAILY 14 Days #14 patch 10/26/23 [Rx] traZODone HCL [Desyrel] 50 mg PO HS 30 Days #30 tab 10/26/23 [Rx] Follow up Appointment(s)/Referral(s): [facility] [Outside] - 10/27/23 9:00 am (10/27@ 9am with Tim Love 10/27@ 10:30am with Dr. Garcia) [facility] [NON-STAFF] - 1 Week Patient Instructions/Handouts: How to Stop Smoking (ED), Schizoaffective Disorder (DC), Cannabis Abuse (ED) Activity/Diet/Wound Care/Special Instructions: Avoid the use of street drugs and alcohol. Take all medications as prescribed. When you are in need of refills on your medications, please contact your medical provider and/or outpatient psychiatrist/provider to have this done. Please go to your scheduled outpatient appointment for aftercare treatment. If symptoms return or become worse, call the crisis line at and/or go to the nearest emergency room for evaluation. National Suicide Hotline 093. Discharge Disposition: HOME SELF-CARE
== END 2023-10-26 12:36 | disposition home or self-care (01) | DRG 750 ==
LOC: EC 13:53 → 3MHU 10-19 15:17
PROVIDERS: ADMIT Psychiatry & Neurology Psychiatry; ATTEND Psychiatry & Neurology Psychiatry
DX: F25.9 Schizoaffective disorder, unspecified (principal); F12.90 Cannabis use, unspecified, uncomplicated; F17.200 Nicotine dependence, unspecified, uncomplicated; F43.10 Post-traumatic stress disorder, unspecified; G47.00 Insomnia, unspecified; R45.851 Suicidal ideations; Z79.899 Other long term (current) drug therapy; Z91.51 Personal history of suicidal behavior; Z11.52 Encounter for screening for COVID-19
CPT/HCPCS: 80053; 80061; 80306; 81001; 82075; 83036; 84443; 85025; 87635; 93005; 96372; 99285

== ENCOUNTER 2023-11-02 03:11 | Emergency (ER) | payer OTHER ==
[2023-11-02 03:37] VITALS: RESP 18; TEMP 98
--- NOTE | 2023-11-02 06:46 | ED ---
Psych HPI <KarolinaMichael - Last Filed: 11/02/23 17:08> - General Source: patient, RN notes reviewed, old records reviewed Mode of arrival: ambulatory Limitations: no limitations <Jono Davis - Last Filed: 11/03/23 06:04> - General Chief Complaint: Psychiatric Symptoms Stated Complaint: Mental Health Time Seen by Provider: 11/02/23 06:01 - History of Present Illness Initial Comments: 31-year-old male presents emergency Department requesting psychiatric evaluation. Patient has history of schizophrenia. Patient states that he's had issues secondary to his sister's kids being taken away by CPS. He denies being suicidal or homicidal he states that he does not feel safe at home currently. Patient does have history of drug use. Patient denies any current drug use denies alcohol use today. (Jono Davis) - Related Data Previous Rx's Medication Instructions Recorded ARIPiprazole IM [Abilify Maintena] 400 mg IM QMONTHLY #1 each 10/26/23 traZODone HCL [Desyrel] 50 mg PO HS 30 Days #30 tab 10/26/23 Allergies Allergy/AdvReac Type Severity Reaction Status Date / Time No Known Allergies Allergy Verified 11/02/23 10:45 Review of Systems ROS Other: All systems not noted in ROS Statement are negative. <Michael Turcios - Last Filed: 11/02/23 17:08> ROS Other: All systems not noted in ROS Statement are negative. <Jono Davis - Last Filed: 11/03/23 06:04> ROS Statement: Those systems with pertinent positive or pertinent negative responses have been documented in the HPI. Past Medical History Past Medical History: No Reported History History of Any Multi-Drug Resistant Organisms: None Reported Past Surgical History: Orthopedic Surgery Additional Past Surgical History / Comment(s): oral surgery Past Anesthesia/Blood Transfusion Reactions: No Reported Reaction Past Psychological History: Depression, PTSD, Schizophrenia Smoking Status: Never smoker, Vaper Past Alcohol Use History: None Reported Past Drug Use History: Marijuana - Past Family History Father Family Medical History: Hyperlipidemia Family Family Medical History: No Reported History <Jono Davis - Last Filed: 11/03/23 06:04> General Exam Limitations: no limitations General appearance: alert, in no apparent distress Head exam: Present: atraumatic, normocephalic, normal inspection Eye exam: Present: normal appearance, PERRL, EOMI. Absent: scleral icterus, conjunctival injection, periorbital swelling ENT exam: Present: normal exam, normal oropharynx, mucous membranes moist Neck exam: Present: normal inspection, full ROM. Absent: tenderness, meningismus, lymphadenopathy Respiratory exam: Present: normal lung sounds bilaterally. Absent: respiratory distress, wheezes, rales, rhonchi, stridor Cardiovascular Exam: Present: regular rate, normal rhythm, normal heart sounds. Absent: systolic murmur, diastolic murmur, rubs, gallop, clicks Neurological exam: Present: alert, oriented X3 Psychiatric exam: Present: flat affect <Jono Davis - Last Filed: 11/03/23 06:04> Course Vital Signs 11/02/23 11/02/23 11/02/23 03:21 14:30 17:11 Temperature 98 F Pulse Rate 89 89 80 Respiratory 18 18 18 Rate Blood Pressure 117/75 122/71 124/74 O2 Sat by Pulse 95 97 97 Oximetry Medical Decision Making <Jono Dvais - Last Filed: 11/03/23 06:04> - Medical Decision Making Was pt. sent in by a medical professional or institution (, PA, [facility] [employer] [facility], urgent care, hospital, or alf...) When possible be specific @ -No Did you speak to anyone other than the patient for history (EMS, parent, family, police, friend...)? What history was obtained from this source @ -No Did you review nursing and triage notes (agree or disagree)? Why? @ -I reviewed and agree with nursing and triage notes Were old charts reviewed (outside hosp., previous admission, EMS record, old EKG, old radiological studies, urgent care reports/EKG's, alf records)? Report findings @ -No old charts were reviewed Differential Diagnosis (chest pain, altered mental status, abdominal pain women, abdominal pain men, vaginal bleeding, weakness, fever, dyspnea, syncope, headache, dizziness, GI bleed, back pain, seizure, CVA, palpatations, mental health, musculoskeletal)? @ -Differential Mental Health Depression, anxiety, bipolar, psychosis, schizophrenia, borderline personality, situational depression, adjustment disorder, behavioral disorder, brain tumor, malingering, substance abuse, encephalopathy, medication reaction, dementia, hypothyroidism, degenerative neurologic disorder, lupus.... This is not meant to be all-inclusive liste EKG interpreted by me (3pts min.). @ -None X-rays interpreted by me (1pt min.). @ -None done CT interpreted by me (1pt min.). @ -None done U/S interpreted by me (1pt. min.). @ -None done What testing was considered but not performed or refused? (CT, X-rays, U/S, labs)? Why? @ -None What meds were considered but not given or refused? Why? @ -None Did you discuss the management of the patient with other professionals (professionals i.e. DrMichaelle, PA, [facility] [employer] [facility], lab, RT, psych nurse, social service worker, child and adolescent therapist, teacher, court security officer, welfare case worker)? Give summary @ -[EPS evaluated the patient discuss case with psychiatrist who recommended patient be discharged as stated to plan Was smoking cessation discussed for >3mins.? @ -No Was critical care preformed (if so, how long)? @ -No Were there social determinants of health that impacted care today? How? (Homelessness, low income, unemployed, alcoholism, drug addiction, transportation, low edu. Level, literacy, decrease access to med. care, fpc, rehab)? @ -No Was there de-escalation of care discussed even if they declined (Discuss DNR or withdrawal of care, Hospice)? DNR status @ -No What co-morbidities impacted this encounter? (DM, HTN, Smoking, COPD, CAD, Cancer, CVA, ARF, Chemo, Hep., AIDS, mental health diagnosis, sleep apnea, morbid obesity)? @ -None Was patient admitted / discharged? Hospital course, mention meds given and route, prescriptions, significant lab abnormalities, going to OR and other pertinent info. @ -Discharge patient was evaluated by EPS recommends to be discharged with states the pain he denies being suicidal Undiagnosed new problem with uncertain prognosis? @ -No Drug Therapy requiring intensive monitoring for toxicity (Heparin, Nitro, Insulin, Cardizem)? @ -No Were any procedures done? @ -No Diagnosis/symptom? @ -Depression, schizophrenia Acute, or Chronic, or Acute on Chronic? @ -Acute Uncomplicated (without systemic symptoms) or Complicated (systemic symptoms)? @ -Uncomplicated Side effects of treatment? @ -No Exacerbation, Progression, or Severe Exacerbation? @ -No Poses a threat to life or bodily function? How? (Chest pain, USA, CA, pneumonia, PE, COPD, DKA, ARF, appy, cholecystitis, CVA, Diverticulitis, Homicidal, Suicidal, threat to staff... and all critical care pts) @ -No (Jono Davis) - Lab Data Lab Results 11/02/23 Range/Units 16:04 Urine Opiates Screen Not Detected (NotDetected) Ur Oxycodone Screen Not Detected (NotDetected) Urine Methadone Screen Not Detected (NotDetected) Ur Propoxyphene Screen Not Detected (NotDetected) Ur Barbiturates Screen Not Detected (NotDetected) U Tricyclic Antidepress Not Detected (NotDetected) Ur Phencyclidine Scrn Not Detected (NotDetected) Ur Amphetamines Screen Not Detected (NotDetected) U Methamphetamines Scrn Not Detected (NotDetected) U Benzodiazepines Scrn Not Detected (NotDetected) Urine Cocaine Screen Not Detected (NotDetected) U Marijuana (THC) Screen Detected H (NotDetected) Disposition Is patient prescribed a controlled substance at d/c from ED?: No <Michael Turcios - Last Filed: 11/02/23 17:08> Is patient prescribed a controlled substance at d/c from ED?: No <Jono Davis - Last Filed: 11/03/23 06:04> Clinical Impression: Schizophrenia Disposition: HOME SELF-CARE Condition: Fair Instructions (If sedation given, give patient instructions): Depression (ED) Additional Instructions: Please return to the Emergency Department if symptoms worsen or any other concerns. Referrals: None,Stated [Primary Care Provider] - 1-2 days Forms: Outpatient Counseling
[2023-11-02 16:34] LABS: Amphetamine Screen,Urine Not Detected (NotDetected); Barbiturate Screen,Urine Not Detected (NotDetected); Benzodiazepines Screen,Urine Not Detected (NotDetected); Cocaine Screen,Urine Not Detected (NotDetected); Methadone Screen, Urine Not Detected (NotDetected); Opiate Screen,Urine Not Detected (NotDetected); Oxycodone Screen, Urine Not Detected (NotDetected); Phencyclidine Screen,Urine Not Detected (NotDetected); Tricyclic Antidepressant,Urine Not Detected (NotDetected); Urn Cannabinoid Scrn Detected (NotDetected)
[2023-11-02 17:19] VITALS: BP 124/74; PULSE 80
== END 2023-11-02 20:37 | disposition home or self-care (01) ==
LOC: EC 03:11
DX: F20.9 Schizophrenia, unspecified (principal); F12.90 Cannabis use, unspecified, uncomplicated
CPT/HCPCS: 80306; 82075; 99284

== ENCOUNTER 2023-11-03 14:32 | Emergency (ER) | payer OTHER ==
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
[2023-11-03 15:56] LABS: Amphetamine Screen,Urine Not Detected (NotDetected); Barbiturate Screen,Urine Not Detected (NotDetected); Benzodiazepines Screen,Urine Not Detected (NotDetected); Cocaine Screen,Urine Not Detected (NotDetected); Methadone Screen, Urine Not Detected (NotDetected); Opiate Screen,Urine Not Detected (NotDetected); Oxycodone Screen, Urine Not Detected (NotDetected); Phencyclidine Screen,Urine Not Detected (NotDetected); Tricyclic Antidepressant,Urine Not Detected (NotDetected); Urn Cannabinoid Scrn Detected (NotDetected)
[2023-11-03] MEDS ORDERED: LORazepam 1 MG TAB PO STA (20:08)
[2023-11-03 22:22] LABS: Appearance,Urine Clear (Clear); Bilirubin,Urine Negative (Negative); Blood,Urine Trace (Negative); Color,Urine Yellow; Glucose,Urine (UA) Negative (Negative); Ketones,Urine Negative (Negative); Protein,Urine Negative (Negative); Specific Gravity,Urine 1.015 (1.001-1.035)
[2023-11-03 22:23] LABS: Leukocyte Esterase,Urine Negative (Negative); Nitrite,Urine Negative (Negative); Urobilinogen,Urine <2.0 mg/dL (<2.0)
[2023-11-03 22:27] LABS: Mucus,Urine Few /hpf; RBC,Urine <1 /hpf (0-5); WBC,Urine 8 /hpf (0-5)
[2023-11-03 22:42] LABS: Basophils % (A) 0 %; Eosinophils # (A) 0.2 k/uL (0-0.7); Eosinophils % (A) 2 %; HCT 40.2 % (39.0-53.0); HGB 13.4 gm/dL (13.0-17.5); Lymphocytes # (A) 1.8 k/uL (1.0-4.8); Lymphocytes % (A) 24 %; MCH 27.2 pg (25.0-35.0); MCHC 33.3 g/dL (31.0-37.0); MCV 81.8 fL (80.0-100.0); Mean Platelet Volume 7.9; Monocytes # (A) 0.3 k/uL (0-1.0); Monocytes % (A) 4 %; Neutrophils # (A) 4.9 k/uL (1.3-7.7); Neutrophils % (A) 67 %; Platelet Count 222 k/uL (150-450); RBC 4.92 m/uL (4.30-5.90); WBC 7.4 k/uL (3.8-10.6)
[2023-11-03 22:52] LABS: ALT 24 U/L (4-49); AST 34 U/L (17-59); African American GFR (CKD) >90 (>60 ml/min/1.73 sqM); Albumin 3.6 g/dL (3.5-5.0); Alkaline Phosphatase 60 U/L (38-126); Anion Gap 11 mmol/L; Blood Urea Nitrogen 18 mg/dL (9-20); Carbon Dioxide 26 mmol/L (22-30); Chloride 104 mmol/L (98-107); Glucose 103 mg/dL (74-99); Non-African American GFR(CKD) >90 (>60 ml/min/1.73 sqM); Potassium 4.4 mmol/L (3.5-5.1); Sodium 141 mmol/L (137-145); Total Bilirubin 0.2 mg/dL (0.2-1.3); Total Protein 6.1 g/dL (6.3-8.2)
[2023-11-04] MEDS ORDERED: LORazepam 1 MG TAB PO STA ×3 (11:10→21:37)
[2023-11-04] MEDS ORDERED: ZIPRASIDONE 20 MG VIAL IM STA (11:26)
[2023-11-04] MEDS ORDERED: OLANZapine 5 MG TAB PO STA (16:58)
[2023-11-04] MEDS ORDERED: traZODone HCL 50 MG TAB PO ONE (21:02)
[2023-11-05] MEDS ORDERED: diphenhydrAMINE 50 MG CAP PO STA (01:56)
[2023-11-05 05:16] VITALS: BP 138/74; PULSE 68; RESP 18; TEMP 98.3
[2023-11-05] MEDS ORDERED: LORazepam 1 MG TAB PO STA (05:44)
[2023-11-05] MEDS ORDERED: HALOPERIDOL LACTATE 5 MG/ML 1 ML VIAL IM STA (06:11)
== END 2023-11-05 07:36 ==
LOC: EC 14:32
DX: F41.9 Anxiety disorder, unspecified (principal); F17.290 Nicotine dependence, other tobacco product, uncomplicated; F12.90 Cannabis use, unspecified, uncomplicated; Z86.59 Personal history of other mental and behavioral disorders; Z20.822 Contact with and (suspected) exposure to COVID-19
CPT/HCPCS: 99285 ×2; 96372 ×2; 82075; 36415; 80053; 85025; 81001; 80306; 87635; J1630; J3486

== ENCOUNTER 2023-11-25 01:19 | Emergency (ER) | payer OTHER ==
--- NOTE | 2023-11-25 06:37 | ED ---
General Adult HPI - General Source: patient Mode of arrival: ambulatory Limitations: no limitations <Rossi Ramirez - Last Filed: 11/25/23 06:34> <Sherman Noe - Last Filed: 11/25/23 10:15> - General Chief complaint: Psychiatric Symptoms Stated complaint: Mental Health Time Seen by Provider: 11/25/23 05:14 - History of Present Illness Initial comments: Sudhakar a 23-year-old male who presents the ER today stating that he is depressed and he feels that he needs to be on [address]. Upon my evaluation the patient was sleeping comfortably in the room when I woke him he stated that it was nothing serious he just needs to be on [address] because he is depressed. He denies suicidality. (Rossi Ramirez) - Related Data Previous Rx's Medication Instructions Recorded ARIPiprazole IM [Abilify Maintena] 400 mg IM QMONTHLY #1 each 10/26/23 traZODone HCL [Desyrel] 50 mg PO HS 30 Days #30 tab 10/26/23 Allergies Allergy/AdvReac Type Severity Reaction Status Date / Time No Known Allergies Allergy Verified 11/25/23 01:53 Review of Systems ROS Other: All systems not noted in ROS Statement are negative. <Rossi Ramirez - Last Filed: 11/25/23 06:34> ROS Other: All systems not noted in ROS Statement are negative. <Sherman Noe - Last Filed: 11/25/23 10:15> ROS Statement: Those systems with pertinent positive or pertinent negative responses have been documented in the HPI. Past Medical History Past Medical History: No Reported History History of Any Multi-Drug Resistant Organisms: None Reported Past Surgical History: Orthopedic Surgery Additional Past Surgical History / Comment(s): oral surgery Past Anesthesia/Blood Transfusion Reactions: No Reported Reaction Past Psychological History: Depression, PTSD, Schizophrenia Smoking Status: Vaper Past Alcohol Use History: None Reported Past Drug Use History: Marijuana - Past Family History Father Family Medical History: Hyperlipidemia Family Family Medical History: No Reported History <Rossi Ramirez - Last Filed: 11/25/23 06:34> General Exam Limitations: no limitations <Rossi Ramirez - Last Filed: 11/25/23 06:34> - General Exam Comments Initial Comments: Physical Exam GENERAL: Patient is well-developed and well-nourished. Patient is nontoxic and well-hydrated and is in no distress. HENT: Normocephalic, Atraumatic. EYES: PERRL, EOMI PULMONARY: Unlabored respirations. CARDIOVASCULAR: RRR Warm and well perfused extremities ABDOMEN: Non-distended SKIN: No rashes or bruising : Deferred NEUROLOGIC: Alert and oriented Normal speech MUSCULOSKELETAL: Moving all extremities with no apparent injury PSYCHIATRIC: Depression without suicidal thoughts (Rossi Ramirez) Course Vital Signs 11/25/23 11/25/23 01:52 07:25 Temperature 97.8 F 98.3 F Pulse Rate 96 66 Respiratory 18 16 Rate Blood Pressure 128/93 124/76 O2 Sat by Pulse 98 97 Oximetry Medical Decision Making <Rossi Ramirez - Last Filed: 11/25/23 06:34> <Sherman Noe - Last Filed: 11/25/23 10:15> - Medical Decision Making Was pt. sent in by a medical professional or institution (, PA, CUSTOMER OPERATIONS MANAGER, urgent care, hospital, or custodial...) When possible be specific @ -No Did you speak to anyone other than the patient for history (EMS, parent, family, police, friend...)? What history was obtained from this source @ -No Did you review nursing and triage notes (agree or disagree)? Why? @ -I reviewed and agree with nursing and triage notes Were old charts reviewed (outside hosp., previous admission, EMS record, old EKG, old radiological studies, urgent care reports/EKG's, custodial records)? Report findings @ -No old charts were reviewed Differential Diagnosis (chest pain, altered mental status, abdominal pain women, abdominal pain men, vaginal bleeding, weakness, fever, dyspnea, syncope, headache, dizziness, GI bleed, back pain, seizure, CVA, palpatations, mental health)? @ -not applicable EKG interpreted by me (3pts min.). @ -As above X-rays interpreted by me (1pt min.). @ -None done CT interpreted by me (1pt min.). @ -None done U/S interpreted by me (1pt. min.). @ -None done What testing was considered but not performed or refused? (CT, X-rays, U/S, labs)? Why? @ -None What meds were considered but not given or refused? Why? @ -None Did you discuss the management of the patient with other professionals (professionals i.e. , PA, CUSTOMER OPERATIONS MANAGER, lab, RT, psych nurse, social organization professor, caterpillar operator, teacher, armored vehicle officer, case management director)? Give summary @ -No Was smoking cessation discussed for >3mins.? @ -No Was critical care preformed (if so, how long)? @ -No Were there social determinants of health that impacted care today? How? (Homelessness, low income, unemployed, alcoholism, drug addiction, transportation, low edu. Level, literacy, decrease access to med. care, detention, rehab)? @ -No Was there de-escalation of care discussed even if they declined (Discuss DNR or withdrawal of care, Hospice)? DNR status @ -No What co-morbidities impacted this encounter? (DM, HTN, Smoking, COPD, CAD, Cancer, CVA, ARF, Chemo, Hep., AIDS, mental health diagnosis, sleep apnea, morbid obesity)? @ Mental health Patient care signed out to Dr Noe at 7am (Rossi Ramirez) Patient care sent out to me by previous shift physician, Dr. Ramirez. Briefly, patient is a 23-year-old male presents emergency department for depression. Plan is and also follow-up with pending EPS recommendations. I was notified at 10:10 AM that patient is recommended for discharge with outpatient management. Agree with this disposition plan. (Sherman Noe) Disposition <Rossi Ramirez - Last Filed: 11/25/23 06:34> Is patient prescribed a controlled substance at d/c from ED?: No <Sherman Noe - Last Filed: 11/25/23 10:15> Clinical Impression: Depression Disposition: HOME SELF-CARE Instructions (If sedation given, give patient instructions): Depression (ED) Referrals: None,Stated [Primary Care Provider] - 1-2 days
[2023-11-25 07:41] VITALS: BP 124/76; PULSE 66; RESP 16; TEMP 98.3
== END 2023-11-25 10:36 | disposition home or self-care (01) ==
LOC: EC 01:19
DX: F32.A Depression, unspecified (principal); F17.290 Nicotine dependence, other tobacco product, uncomplicated; F12.90 Cannabis use, unspecified, uncomplicated
CPT/HCPCS: 82075; 99284

== ENCOUNTER 2023-12-18 12:32 | Inpatient (IN) | payer MEDICAID, OTHER ==
--- NOTE | 2023-12-18 13:20 | ED ---
General Adult HPI - General Stated complaint: Petition-Mental Health Time Seen by Provider: 12/18/23 12:34 Source: patient, EMS, RN notes reviewed, old records reviewed Mode of arrival: EMS Limitations: no limitations - History of Present Illness Initial comments: Patient is a 23-year-old male who presents emergency department for psychiatric evaluation. He was petitioned by police as he threatened to hurt himself and others at his [facility]. States he was going to have a mental breakdown. I speak with him, he states he just needs to go to [address] the psychiatric floor the hospital. Denies any current suicidal or homicidal ideations or plans. Denies any visual or auditory hallucinations. He is asking for water and a sandwich. Endorses chronic right hand pain as well as some abrasions to the right knuckles which are healing. States he is up-to-date on tetanus. Has no other acute complaints at this time. Presents for further evaluation at this time. States he has been compliant was seen [facility] as well as taking his medications. - Related Data Previous Rx's Medication Instructions Recorded ARIPiprazole IM [Abilify Maintena] 400 mg IM QMONTHLY #1 each 10/26/23 traZODone HCL [Desyrel] 50 mg PO HS 30 Days #30 tab 10/26/23 Allergies Allergy/AdvReac Type Severity Reaction Status Date / Time No Known Allergies Allergy Verified 12/18/23 12:51 Review of Systems ROS Statement: Those systems with pertinent positive or pertinent negative responses have been documented in the HPI. Review of Systems: CONST: Denies fever EYES: Denies blurry vision ENT: Denies nasal congestion C/V: Denies Chest pain RESP: Denies shortness of breath GI: Denies abdominal pain : Denies dysuria SKIN: Denies rash. MSK: Denies joint pain. NEURO: Denies headache PSYCH: Denies suicidal and homicidal ideations/plans/attempts. Denies visual or auditory hallucinations. ROS Other: All systems not noted in ROS Statement are negative. Past Medical History Past Medical History: No Reported History History of Any Multi-Drug Resistant Organisms: None Reported Past Surgical History: Orthopedic Surgery Additional Past Surgical History / Comment(s): oral surgery Past Anesthesia/Blood Transfusion Reactions: No Reported Reaction Past Psychological History: Depression, PTSD, Schizophrenia Smoking Status: Current every day smoker, Vaper Past Alcohol Use History: None Reported Past Drug Use History: Marijuana - Past Family History Father Family Medical History: Hyperlipidemia Family Family Medical History: No Reported History General Exam - General Exam Comments Initial Comments: General: Appears in no acute distress. HEAD: Normal with no signs of head trauma. EYES: EOMI ENT: Hearing grossly intact, normal oropharynx. RESPIRATORY: Clear breath sounds bilaterally. No wheezes, rales, or rhonchi. C/V: Regular rate and rhythm. S1 and S2 auscultated, peripheral pulses 2+ and intact throughout ABD: Abd is soft, nontender, nondistended EXT: Normal range of motion, no obvious deformity SKIN: Superficial abrasions on the knuckles of right hand. NEURO: Alert and oriented x 4. Limitations: no limitations Course Vital Signs 12/18/23 12:43 Temperature 99.4 F Pulse Rate 88 Respiratory 20 Rate Blood Pressure 129/83 O2 Sat by Pulse 100 Oximetry Medical Decision Making - Medical Decision Making Was pt. sent in by a medical professional or institution ( PA, RF MANAGER, urgent care, hospital, or retirement...) When possible be specific @ -No Did you speak to anyone other than the patient for history (EMS, parent, family, police, friend...)? What history was obtained from this source @ -No Did you review nursing and triage notes (agree or disagree)? Why? @ -I reviewed and agree with nursing and triage notes Were old charts reviewed (outside hosp., previous admission, EMS record, old EKG, old radiological studies, urgent care reports/EKG's, retirement records)? Report findings @ -Petition and previous charts were reviewed. Differential Diagnosis (chest pain, altered mental status, abdominal pain women, abdominal pain men, vaginal bleeding, weakness, fever, dyspnea, syncope, headache, dizziness, GI bleed, back pain, seizure, CVA, palpatations, mental health, musculoskeletal)? @ -Differential Mental Health Depression, anxiety, bipolar, psychosis, schizophrenia, borderline personality, situational depression, adjustment disorder, behavioral disorder, brain tumor, malingering, substance abuse, encephalopathy, medication reaction, dementia, hypothyroidism, degenerative neurologic disorder, lupus.... This is not meant to be all-inclusive list EKG interpreted by me (3pts min.). @ -None done X-rays interpreted by me (1pt min.). @ -None done CT interpreted by me (1pt min.). @ -None done U/S interpreted by me (1pt. min.). @ -None done What testing was considered but not performed or refused? (CT, X-rays, U/S, labs)? Why? @ -None What meds were considered but not given or refused? Why? @ -None Did you discuss the management of the patient with other professionals (professionals i.e. , PA, RF MANAGER, lab, RT, psych nurse, social work therapist, basting puller, teacher, correction officer city or county jail, senior case manager)? Give summary @ -EPS notified of the consult Was smoking cessation discussed for >3mins.? @ -No Was critical care preformed (if so, how long)? @ -No Were there social determinants of health that impacted care today? How? (Homelessness, low income, unemployed, alcoholism, drug addiction, transportation, low edu. Level, literacy, decrease access to med. care, [facility], rehab)? @ -No Was there de-escalation of care discussed even if they declined (Discuss DNR or withdrawal of care, Hospice)? DNR status @ -No What co-morbidities impacted this encounter? (DM, HTN, Smoking, COPD, CAD, Cancer, CVA, ARF, Chemo, Hep., AIDS, mental health diagnosis, sleep apnea, morbid obesity)? @ -None Was patient admitted / discharged? Hospital course, mention meds given and route, prescriptions, significant lab abnormalities, going to OR and other pertinent info. @ -Based on the patient's presentation and physical exam, presents complaining of being on the virtual mental breakdown. This decision by police over concern for homicidal and suicidal statements. Patient was placed in green scrubs. Sitter was ordered. Suicide precautions ordered. He is cooperative at this time. BAT is 0. UDS is pending. Vital signs are within acceptable limits. At this time patient is medically cleared for evaluation by psychiatry. Disposition is pending psychiatric evaluation. EPS notified of the consult. Patient evaluated by EPS. He does meet inpatient psychiatric criteria. Clinical Certificate completed by myself. Undiagnosed new problem with uncertain prognosis? @ -No Drug Therapy requiring intensive monitoring for toxicity (Heparin, Nitro, Insulin, Cardizem)? @ -No Were any procedures done? @ -No Diagnosis/symptom? @ -Encounter for psychiatric evaluation, acute psychosis, suicidal ideation Acute, or Chronic, or Acute on Chronic? @ -Acute Uncomplicated (without systemic symptoms) or Complicated (systemic symptoms)? @ -complicated Side effects of treatment? @ -No Exacerbation, Progression, or Severe Exacerbation? @ -No Poses a threat to life or bodily function? How? (Chest pain, [place], [place], pneumonia, PE, COPD, DKA, ARF, appy, cholecystitis, CVA, Diverticulitis, Homicidal, Suicidal, threat to staff... and all critical care pts) @ -yes - Lab Data Lab Results 12/18/23 Range/Units 13:50 Urine Opiates Screen Not Detected (NotDetected) Ur Oxycodone Screen Not Detected (NotDetected) Urine Methadone Screen Not Detected (NotDetected) Ur Barbiturates Screen Not Detected (NotDetected) U Tricyclic Antidepress Not Detected (NotDetected) Ur Phencyclidine Scrn Not Detected (NotDetected) Ur Amphetamines Screen Not Detected (NotDetected) U Methamphetamines Scrn Not Detected (NotDetected) U Benzodiazepines Scrn Not Detected (NotDetected) Urine Cocaine Screen Not Detected (NotDetected) U Marijuana (THC) Screen Not Detected (NotDetected) Disposition Clinical Impression: Encounter for psychiatric assessment, Acute psychosis, Suicidal ideation Disposition: TRANSFER TO PSYCH HOSP/UNIT Condition: Stable Referrals: None,Stated [Primary Care Provider] - 1-2 days Time of Disposition: 15:40
[2023-12-18 14:18] LABS: Amphetamine Screen,Urine Not Detected (NotDetected); Barbiturate Screen,Urine Not Detected (NotDetected); Benzodiazepines Screen,Urine Not Detected (NotDetected); Cocaine Screen,Urine Not Detected (NotDetected); Methadone Screen, Urine Not Detected (NotDetected); Opiate Screen,Urine Not Detected (NotDetected); Oxycodone Screen, Urine Not Detected (NotDetected); Phencyclidine Screen,Urine Not Detected (NotDetected); Tricyclic Antidepressant,Urine Not Detected (NotDetected); Urn Cannabinoid Scrn Not Detected (NotDetected)
[2023-12-18] MEDS ORDERED: LORazepam 2 MG/ML INJ IM PRN (16:32)
[2023-12-18] MEDS ORDERED: HALOPERIDOL LACTATE 5 MG/ML 1 ML VIAL IM PRN (16:32)
[2023-12-18] MEDS ORDERED: ACETAMINOPHEN TAB 325 MG TAB PO PRN (16:32)
[2023-12-18] MEDS ORDERED: MAGNESIUM HYDROXIDE 2,400 MG/30 ML CUP PO PRN (16:32)
[2023-12-18] MEDS ORDERED: traZODone HCL 50 MG TAB PO PRN (16:32)
[2023-12-18 17:22] LABS: Appearance,Urine Clear (Clear); Bilirubin,Urine Negative (Negative); Blood,Urine Negative (Negative); Color,Urine Light Yellow; Glucose,Urine (UA) Negative (Negative); Ketones,Urine Negative (Negative); Leukocyte Esterase,Urine Negative (Negative); Nitrite,Urine Negative (Negative); PH, Urine 6.5 (5.0-8.0); Protein,Urine Negative (Negative); Specific Gravity,Urine 1.015 (1.001-1.035); Urobilinogen,Urine <2.0 mg/dL (<2.0)
[2023-12-18] MEDS: LORazepam 1 MG TAB PO PRN (20:37)
--- NOTE | 2023-12-18 23:04 | P.CONS ---
History of Present Illness - Reason for Consult Consult date: 12/18/23 - History of Present Illness The patient is a 23-year-old male with a PMH of substance abuse, resident of nursing home was brought into the emergency room after being petitioned by the police as he threatened to hurt himself. The patient was admitted to the mental health unit where he was seen and evaluated. Patient reported no physical complaints at the time of interview. He reports occasional marijuana use as well as smoking several cigarettes per day. Denies chest discomfort, shortness of breath, fever, chills, cough, nausea, vomiting, abdominal pain, diarrhea. Review of systems: Pertinent positives and negatives as discussed in HPI, a complete review of systems was performed and all other systems are negative. Physical examination: General: non toxic, no distress, appears at stated age, normal weight Derm: no unusual rashes/lesions, no unusual ecchymoses, warm, dry Head: atraumatic, normocephalic, symmetric Eyes: EOMI, no lid lag, anicteric sclera ENT: Nose and ears atraumatic, no thrush, no pharyngeal erythema Neck: trachea midline, supple Mouth: no lip lesion, mucus membranes moist Cardiovascular: S1S2 reg, no murmur, no edema Lungs: CTA bilateral, no rhonchi, no rales , no accessory muscle use Abdominal: soft, nontender to palpation, no guarding Ext: no gross muscle atrophy, no contractures, Neuro: No gross focal neuro deficits noted Psych: Alert, oriented, appropriate affect Assessment: Marijuana abuse Self-harm Imaging: None performed Data Review: Urine toxicology and UA was unremarkable with respiratory viral panel unremarkable. Plan: Advised on importance of cessation Defer management of depression and self-harm to primary psychiatry service Thank you for allowing us to participate in the care of this patient. We will follow peripherally. Do not hesitate to contact us with questions. Someone can be reached from the [facility] hospitalist group at all hours of the day at [phone]. Past Medical History Past Medical History: No Reported History History of Any Multi-Drug Resistant Organisms: None Reported Past Surgical History: Orthopedic Surgery Additional Past Surgical History / Comment(s): oral surgery Past Anesthesia/Blood Transfusion Reactions: No Reported Reaction Past Psychological History: Anxiety, Depression, PTSD, Schizophrenia Smoking Status: Current every day smoker, Vaper Past Alcohol Use History: None Reported Past Drug Use History: Marijuana - Past Family History Father Family Medical History: Hyperlipidemia Family Family Medical History: No Reported History Medications and Allergies Home Medications Medication Instructions Recorded Confirmed Type No Known Home Medications 12/18/23 12/18/23 History Allergies Allergy/AdvReac Type Severity Reaction Status Date / Time No Known Allergies Allergy Verified 12/18/23 16:06 Physical Exam Vitals: Vital Signs Temp Pulse Pulse Resp BP BP Pulse Ox 12/18/23 18:38 98.0 F 66 18 139/89 99 12/18/23 18:01 97.8 F 70 18 134/83 99 12/18/23 12:43 99.4 F 88 20 129/83 100 Intake and Output 12/18/23 12/18/23 12/19/23 14:59 22:59 06:59 Other: Weight 68.039 kg 65.998 kg
[2023-12-19] MEDS: NICOTINE 21MG/24HR PATCH TRANSDERM SCH (07:43)
[2023-12-19] MEDS: LORazepam 1 MG TAB PO PRN (09:02)
[2023-12-19 11:27] LABS: Basophils % (A) 1 %; Eosinophils # (A) 0.1 k/uL (0-0.7); Eosinophils % (A) 2 %; HCT 43.3 % (39.0-53.0); HGB 14.2 gm/dL (13.0-17.5); Lymphocytes # (A) 1.5 k/uL (1.0-4.8); Lymphocytes % (A) 29 %; MCH 26.9 pg (25.0-35.0); MCHC 32.7 g/dL (31.0-37.0); MCV 82.3 fL (80.0-100.0); Mean Platelet Volume 8.2; Monocytes # (A) 0.3 k/uL (0-1.0); Monocytes % (A) 5 %; Neutrophils # (A) 3.3 k/uL (1.3-7.7); Neutrophils % (A) 62 %; Platelet Count 227 k/uL (150-450); RBC 5.26 m/uL (4.30-5.90); RDW 13.7 % (11.5-15.5); WBC 5.3 k/uL (3.8-10.6)
[2023-12-19 11:42] LABS: ALT 20 U/L (4-49); AST 32 U/L (17-59); African American GFR (CKD) >90 (>60 ml/min/1.73 sqM); Albumin 4.3 g/dL (3.5-5.0); Alkaline Phosphatase 67 U/L (38-126); Anion Gap 10 mmol/L; Blood Urea Nitrogen 14 mg/dL (9-20); Calcium 9.7 mg/dL (8.4-10.2); Carbon Dioxide 24 mmol/L (22-30); Chloride 106 mmol/L (98-107); Glucose 97 mg/dL (74-99); Non-African American GFR(CKD) >90 (>60 ml/min/1.73 sqM); Potassium 4.5 mmol/L (3.5-5.1); Sodium 140 mmol/L (137-145); Total Bilirubin 0.5 mg/dL (0.2-1.3); Total Protein 7.1 g/dL (6.3-8.2)
[2023-12-19] MEDS: haloperidoL 5 MG TAB PO PRN (12:18)
[2023-12-19] MEDS ORDERED: FLUoxetine HCL 20 MG CAP PO SCH (14:30)
[2023-12-19] MEDS: PALIPERIDONE 3 MG TAB.ER.24 PO SCH ×2 (14:33→20:33)
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
[2023-12-19] MEDS: traZODone HCL 50 MG TAB PO PRN (20:33)
[2023-12-20] MEDS: PALIPERIDONE 3 MG TAB.ER.24 PO SCH (08:35)
[2023-12-20] MEDS: NICOTINE 21MG/24HR PATCH TRANSDERM SCH (08:35)
[2023-12-20 09:04] LABS: Chol/HDL Ratio 1.85 Ratio; LDL Cholesterol,Calculated 36.1 mg/dL (0.0-131.0); VLDL Calculation 10.28 mg/dL (5.00-40.00)
[2023-12-20] MEDS ORDERED: HALOPERIDOL LACTATE 5 MG/ML 1 ML VIAL IM PRN (13:11)
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
[2023-12-20] MEDS: haloperidoL 5 MG TAB PO PRN (18:22)
[2023-12-20] MEDS: LORazepam 1 MG TAB PO PRN (18:22)
[2023-12-20] MEDS: traZODone HCL 50 MG TAB PO PRN (20:33)
[2023-12-20] MEDS ORDERED: PALIPERIDONE 3 MG TAB.ER.24 PO SCH (21:00)
[2023-12-21] MEDS: NICOTINE 21MG/24HR PATCH TRANSDERM SCH (08:06)
[2023-12-21] MEDS: haloperidoL 5 MG TAB PO PRN (09:06)
[2023-12-21] MEDS: LORazepam 1 MG TAB PO PRN ×2 (09:06→23:38)
--- NOTE | 2023-12-21 14:29 | P.PN ---
Progress Note - Text Progress Note Date: 12/21/23 Interval history: Patient was seen today wondering hallways and talking to other patients. Amira ent was then seen later on during the day laying on the couch. Patient was sleeping. He was agreeable to speak briefly with procedure writer. Appears to have mild improvement in his irritability. Apparently patient was sprinting down the hallways this morning and agitated and appears to be fairly impulsive. He was given Haldol and Ativan as needed. He did not offer any complaints at this time. He appeared to be more interested in sleeping. Denies any depression or anxiety. Continues to have chronically poor insight and judgment. At this time is denying any suicidal or homicidal ideations intent or plan. Denying any auditory or visual hallucinations. Not reporting any side effects. MENTAL STATUS EXAM: General Appearance: Patient appears to be stated age, well-nourished young adult male with earrings, adequate hygiene. Behavior: Patient is laying on the couch, no agitation today Speech: Patient's speech is fluent and non-pressured. Mood/Affect: Patient reports their mood is "tired", affect is congruent and constricted Suicidality/Homicidality: Patient denies having any homicidal ideation intent or plan. Denies any suicidal ideation, intent or plan. Perceptions: Patient denies any visual hallucinations and denies any auditory hallucinations. Though content/process: There is evidence of any paranoid delusional thought content, and thought process is ruminative. Speculator Memory and concentration: AOX3, grossly intact for the purposes of this session Judgment and insight: Chronically poor, improving mildly IMPRESSIONS: Schizoaffective disorder, depressed Cannabis use disorder Nicotine dependence PLAN: -Patient is admitted to MHU for stabilization of psychiatric symptoms and safety. He is on an active COURT ORDER (expiration date 03/03/24). -Medications: increase Invega 6 mg bid for psychosis and mood stabilization, with plan to switch to IRAHETA prior to discharge. added lithium 450 mg qhs for mood stabilization. if patient is refusing PO invega then he is to receive IM haldol as per court order. Trazodone 150 mg QHS PRN for sleep -Ativan and Haldol PRN for agitation/aggression -NRT - nicotine patch -SW on board for discharge planning. Encourage patient to participate in groups to work on coping skills. Will need to transition patient onto long-acting injection to ensure compliance.
[2023-12-21] MEDS: PALIPERIDONE 6 MG TAB.ER.24 PO SCH (20:23)
[2023-12-21] MEDS: LITHIUM CARBONATE ER 450 MG TABLET.ER PO SCH (20:23)
[2023-12-21] MEDS: traZODone HCL 50 MG TAB PO PRN (20:24)
[2023-12-22] MEDS: PALIPERIDONE 6 MG TAB.ER.24 PO SCH (08:29)
[2023-12-22] MEDS: NICOTINE 21MG/24HR PATCH TRANSDERM SCH (08:29)
[2023-12-22] MEDS: LORazepam 1 MG TAB PO PRN ×2 (08:41→23:47)
[2023-12-22] MEDS: haloperidoL 5 MG TAB PO PRN (09:59)
[2023-12-22] MEDS ORDERED: flUPHENAZine 2.5 MG/ML (MDV) 10 ML VIAL IM PRN (10:10)
[2023-12-22] MEDS ORDERED: chlorproMAZINE 25 MG TAB PO PRN (10:11)
[2023-12-22] MEDS ORDERED: chlorproMAZINE 25 MG/ML 2 ML AMP IM PRN (10:11)
--- NOTE | 2023-12-22 10:16 | P.PN ---
Progress Note - Text Progress Note Date: 12/22/23 Interval history: Patient was seen today wondering hallways and was visibly upset, punching the wall and also yelling intermittently. Patient was agreeable to speak to telegraphic typewriter operator in his room today. Patient appeared to be visibly upset and was fairly preoccupied with discharge. He states that "I am getting worse here" and was demanding to go back to [facility]. He has very low impulse control, demanding and agitated. He received Haldol as needed this morning. He claims that his mood is unstable. Lysing his need for treatment and hospitalization. He did not offer any complaints at this time. Continues to have chronically poor insight and judgment. At this time is denying any suicidal or homicidal ideations intent or plan. Denying any auditory or visual hallucinations. Not reporting any side effects. MENTAL STATUS EXAM: General Appearance: Patient appears to be stated age, well-nourished young adult male with earrings, adequate hygiene. Behavior: Patient is agitated, upset and demanding. Speech: Patient's speech is fluent and non-pressured. Mood/Affect: Patient reports their mood is "fine", affect is incongruent and labile Suicidality/Homicidality: Patient denies having any homicidal ideation intent or plan. Denies any suicidal ideation, intent or plan. Perceptions: Patient denies any visual hallucinations and denies any auditory hallucinations. Though content/process: There is evidence of any paranoid delusional thought content, and thought process is ruminative. [place]. Demanding discharge Memory and concentration: AOX3, grossly intact for the purposes of this session Judgment and insight: Chronically poor/impulsive, improving mildly IMPRESSIONS: Schizoaffective disorder, depressed Cannabis use disorder Nicotine dependence PLAN: -Patient is admitted to MHU for stabilization of psychiatric symptoms and safety. He is on an active COURT ORDER (expiration date 03/03/24). -Medications: d/c Invega and replace with Prolixin 5 mg bid for psychosis and mood stabilization, with plan to switch to IRAHETA prior to discharge, if patient is refusing PO invega then he is to receive IM haldol as per court order. continue lithium 450 mg qhs for mood stabilization. Trazodone 150 mg QHS PRN for sleep -Ativan and Haldol PRN for agitation/aggression -NRT - nicotine patch -SW on board for discharge planning. Encourage patient to participate in groups to work on coping skills. patient continues to be unpredictable, aggressive and agitated, not psychiatrically stable. Will need to transition patient onto long- acting injection to ensure compliance.
--- NOTE | 2023-12-22 16:29 | XR ---
EXAMINATION TYPE: XR hand complete RT DATE OF EXAM: 12/22/2023 3:08 PM CLINICAL INDICATION:Male, 23 years old with history of PAIN AND EDEMA 2ND metacarpal phalangeal join ts.; [facility] COMPARISON: None TECHNIQUE: XR hand complete RT Frontal, lateral and oblique views were obtained. FINDINGS: Normal alignment of the visualized joints. No acute osseous pathology is identified. There is soft tissue swelling throughout the hand. No radiopaque foreign body. IMPRESSION: Soft tissue swelling without evidence of fracture. No radiopaque foreign body.
[2023-12-22] MEDS: traZODone HCL 50 MG TAB PO PRN (19:36)
[2023-12-22] MEDS: LITHIUM CARBONATE ER 450 MG TABLET.ER PO SCH (19:36)
[2023-12-23] MEDS: NICOTINE 21MG/24HR PATCH TRANSDERM SCH (08:35)
--- NOTE | 2023-12-23 12:21 | P.PN ---
Progress Note - Text Progress Note Date: 12/23/23 Interval history: Patient was seen today wondering the hallways and was agreeable to speak to wr iter in his room. patient continues to be difficult to redirect. joiues to have has very low impulse control, continues to focus on dischar.e he spoke about not having schizophrenia and being misdiagnosed. He continues to receive prns. He claims that his mood is unstable. minimizing his need for treatment and hospitalization. He did not offer any complaints at this time. Continues to have chronically poor insight and judgment, mildly improving. At this time is denying any suicidal or homicidal ideations intent or plan. Denying any auditory or visual hallucinations. Not reporting any side effects. MENTAL STATUS EXAM: General Appearance: Patient appears to be stated age, well-nourished young adult male with earrings, adequate hygiene. Behavior: Patient is agitated, upset and demanding, improving Speech: Patient's speech is fluent and non-pressured. Mood/Affect: Patient reports their mood is "ok", affect is congruent and less labile. Suicidality/Homicidality: Patient denies having any homicidal ideation intent or plan. Denies any suicidal ideation, intent or plan. Perceptions: Patient denies any visual hallucinations and denies any auditory hallucinations. Though content/process: There is evidence of any paranoid delusional thought content, and thought process is ruminative. [place]. Demanding discharge Memory and concentration: AOX3, grossly intact for the purposes of this session Judgment and insight: Chronically poor/impulsive, improving mildly IMPRESSIONS: Schizoaffective disorder, depressed Cannabis use disorder Nicotine dependence PLAN: -Patient is admitted to [facility]HU for stabilization of psychiatric symptoms and safety. He is on an active COURT ORDER (expiration date 03/03/24). -Medications: continue Prolixin 5 mg bid for psychosis and mood stabilization, with plan to switch to IRAHETA prior to discharge, if patient is refusing PO invega then he is to receive IM haldol as per court order. continue lithium 450 mg qhs for mood stabilization. trazodone 200 mg qhs for insomnia/mood, cogentin 1 mg qhs for eps reaction/sleep. Trazodone 150 mg QHS PRN for sleep -Ativan and Haldol PRN for agitation/aggression -NRT - nicotine patch -SW on board for discharge planning. Encourage patient to participate in groups to work on coping skills. patient continues to be unpredictable, aggressive and agitated, not psychiatrically stable. Will need to transition patient onto long- acting injection to ensure compliance. likely discharge wednesday and evaluate for IRAHETA to be given on wednesday
[2023-12-23] MEDS: LORazepam 1 MG TAB PO PRN ×2 (14:11→21:44)
[2023-12-23] MEDS: traZODone HCL 100 MG TAB PO SCH (19:53)
[2023-12-23] MEDS: LITHIUM CARBONATE ER 450 MG TABLET.ER PO SCH (19:53)
[2023-12-23] MEDS ORDERED: BENZTROPINE MESYLATE 1 MG TAB PO SCH (21:00)
[2023-12-24] MEDS: MAG HYDROX/AL HYDROX/SIMETH 30 ML CUP PO PRN (00:10)
[2023-12-24] MEDS: NICOTINE 21MG/24HR PATCH TRANSDERM SCH (08:55)
--- NOTE | 2023-12-24 12:00 | P.PN ---
Progress Note - Text Progress Note Date: 12/24/23 Interval history: Patient was seen today wondering the hallways and was agreeable to speak to wr iter in his room. Patient was up at the phone trying to call his interior horticulturist. He was agreeable to speak to greeting card writer today in the in his room with a chemical instrumentation officer present. Patient continues to be fairly focused on discharge, appears to be upset however is less irritable today. He was denying any other concerns. Continues to be agitated during the day at time and has been seen pacing the hallways. He believes that he is "not safe" in the hospital and referred to another patient calling him racial words. He continues to receive prns. minimizing his need for treatment and hospitalization. He did not offer any complaints at this time. Continues to have chronically poor insight and judgment, mildly improving. At this time is denying any suicidal or homicidal ideations intent or plan. Denying any auditory or visual hallucinations. Not reporting any side effects. MENTAL STATUS EXAM: General Appearance: Patient appears to be stated age, well-nourished young adult male with earrings, adequate hygiene. Behavior: Patient is agitated, upset and demanding, improving Speech: Patient's speech is fluent and non-pressured. Mood/Affect: Patient reports their mood is "fine", affect is congruent and less labile. Suicidality/Homicidality: Patient denies having any homicidal ideation intent or plan. Denies any suicidal ideation, intent or plan. Perceptions: Patient denies any visual hallucinations and denies any auditory hallucinations. Though content/process: There is evidence of any paranoid delusional thought content, and thought process is ruminative. [place]. Demanding discharge Memory and concentration: AOX3, grossly intact for the purposes of this session Judgment and insight: Chronically poor/impulsive, improving mildly IMPRESSIONS: Schizoaffective disorder, depressed Cannabis use disorder Nicotine dependence PLAN: -Patient is admitted to MHU for stabilization of psychiatric symptoms and safety. He is on an active COURT ORDER (expiration date 03/03/24). -Medications: continue Prolixin 7.5 mg bid for psychosis and mood stabilization, with plan to switch to IRAHETA on wednesday if patient is doing well, if patient is refusing PO prolixin then he is to receive IM haldol as per court order. continue lithium 450 mg qhs for mood stabilization. will check lithium level wednesday evening prior to dose. trazodone 200 mg qhs for insomnia/mood, incrase cogentin 1 mg BID for eps reaction/sleep. Trazodone 200 mg QHS for sleep -Ativan and Haldol PRN for agitation/aggression -NRT - nicotine patch -SW on board for discharge planning. Encourage patient to participate in groups to work on coping skills. patient continues to be unpredictable, aggressive and agitated, not psychiatrically stable. Will need to transition patient onto long- acting injection to ensure compliance likely wednesday. likely discharge wednesday back to [facility] if patient is improved.
[2023-12-24] MEDS: traZODone HCL 100 MG TAB PO SCH (20:18)
[2023-12-24] MEDS: LITHIUM CARBONATE ER 450 MG TABLET.ER PO SCH (21:49)
[2023-12-24] MEDS: BENZTROPINE MESYLATE 1 MG TAB PO SCH (21:49)
[2023-12-25] MEDS: LORazepam 1 MG TAB PO PRN ×2 (02:25→12:54)
[2023-12-25] MEDS: MAG HYDROX/AL HYDROX/SIMETH 30 ML CUP PO PRN ×3 (02:59→21:19)
[2023-12-25 05:00] VITALS: PULSE 73
[2023-12-25] MEDS: NICOTINE 21MG/24HR PATCH TRANSDERM SCH (08:07)
[2023-12-25] MEDS: BENZTROPINE MESYLATE 1 MG TAB PO SCH ×2 (08:08→23:02)
--- NOTE | 2023-12-25 11:18 | P.PN ---
Progress Note - Text Interval history: Patient was seen [wandering the hallways] and was directable and agreeable to speak with speech writer. States that he feels "excellent" reports no agitation and depression. States that his energy levels have improved and his anxiety has also improved.. At this time patient denies any suicidal or homicidal ideations intent or plan. Denies any Auditory or visual hallucinations. Patient denies any side effects from the medications and has been compliant with meds. Mental status exam: General Appearance: [Patient appears to be older than stated age is alert, directable, and cooperative.] Behavior: [No agitated behavior. Patient is calm and directable] Speech: Patient's speech is fluent and nonpressured. Mood/Affect: Mood is improving mildly, affect is congruent and constricted. Suicidality/Homicidality: Patient denies having any suicidal or homicidal ideation intent or plan. Perceptions: Patient denies any auditory or visual hallucinations. Though content/process: [There is no evidence of any delusional thought content and thought process is linear and goal-directed.] Memory and concentration: AOX3, grossly intact for the purposes of this session Judgment and insight: improving mildly Assessment/Plan: Continue with current diagnosis. Patient continues to meet criteria for inpatient psychiatric admission for symptom stabilization and safety.[Patient will be maintained on current psychotropic medication regimen.] Monitor for medication compliance and for any psychotropic medication side effects. Will continue to monitor ongoing response to treatment. Encouraged participation in milieu.
[2023-12-25] MEDS: NICOTINE GUM (POLACRILEX) 2 MG GUM BUCCAL PRN ×3 (13:54→23:02)
[2023-12-25] MEDS: traZODone HCL 100 MG TAB PO SCH (21:09)
[2023-12-25] MEDS: LITHIUM CARBONATE ER 450 MG TABLET.ER PO SCH (23:02)
[2023-12-26] MEDS: BENZTROPINE MESYLATE 1 MG TAB PO SCH ×2 (08:24→21:13)
--- NOTE | 2023-12-26 09:25 | P.PN ---
Progress Note - Text Interval history: Patient was seen [wandering the hallways] and was directable and agreeable to speak with proposal manager writer. Denies agitation and reports improvement of depression. At this time patient denies any suicidal or homicidal ideations intent or plan. Denies any Auditory or visual hallucinations. Patient denies any side effects from the medications and has been compliant with meds. Mental status exam: General Appearance: [Patient appears to be driven stated age is alert, directable, and cooperative.] Behavior: [No agitated behavior. Patient is calm and directable] Speech: Patient's speech is fluent and nonpressured. Mood/Affect: Mood is improving mildly, affect is congruent and constricted. Suicidality/Homicidality: Patient denies having any suicidal or homicidal ideation intent or plan. Perceptions: Patient denies any auditory or visual hallucinations. Though content/process: [There is no evidence of any delusional thought content and thought process is linear and goal-directed.] Memory and concentration: AOX3, grossly intact for the purposes of this session Judgment and insight: improving mildly Assessment/Plan: Continue with current diagnosis. Patient continues to meet criteria for inpatient psychiatric admission for symptom stabilization and safety.[Patient will be maintained on current psychotropic medication regimen.] Monitor for medication compliance and for any psychotropic medication side effects. Will continue to monitor ongoing response to treatment. Encouraged participation in milieu.
[2023-12-26] MEDS: NICOTINE GUM (POLACRILEX) 2 MG GUM BUCCAL PRN (14:06)
[2023-12-26] MEDS: traZODone HCL 100 MG TAB PO SCH (21:13)
[2023-12-26] MEDS: LITHIUM CARBONATE ER 450 MG TABLET.ER PO SCH (21:14)
[2023-12-27] MEDS: LORazepam 1 MG TAB PO PRN (00:56)
[2023-12-27 07:17] VITALS: BP 116/68; RESP 16; TEMP 98.1
[2023-12-27] MEDS: BENZTROPINE MESYLATE 1 MG TAB PO SCH (08:03)
[2023-12-27] MEDS ORDERED: fluPHENAZine DECANOATE 25 MG/ML 5ML MDV IM SCH (11:30)
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
[2023-12-27] MEDS: NICOTINE GUM (POLACRILEX) 2 MG GUM BUCCAL PRN (12:32)
== END 2023-12-27 14:02 | disposition home or self-care (01) | DRG 750 ==
LOC: EC 12:32 → 3MHU 16:29
PROVIDERS: ADMIT Psychiatry & Neurology Psychiatry; ATTEND Psychiatry & Neurology Psychiatry
DX: F25.1 Schizoaffective disorder, depressive type (principal); F12.10 Cannabis abuse, uncomplicated; F17.210 Nicotine dependence, cigarettes, uncomplicated; M79.641 Pain in right hand; F43.10 Post-traumatic stress disorder, unspecified; G47.00 Insomnia, unspecified; G89.29 Other chronic pain; W22.01XA Walked into wall, initial encounter; Z91.83 Wandering in diseases classified elsewhere; Z79.899 Other long term (current) drug therapy; Z81.8 Family history of other mental and behavioral disorders; Z91.148 Patient's other noncompliance with medication regimen for other reason; Z91.51 Personal history of suicidal behavior; Z28.310 Unvaccinated for COVID-19; Z28.21 Immunization not carried out because of patient refusal; Z11.52 Encounter for screening for COVID-19
CPT/HCPCS: 80053; 80061; 80178; 80306; 81003; 82075; 83036; 84443; 85025; 87636; 99285

== ENCOUNTER 2023-12-29 17:01 | Emergency (ER) | payer OTHER ==
--- NOTE | 2023-12-29 18:13 | ED ---
General Adult HPI - General Source: patient, RN notes reviewed Mode of arrival: ambulatory Limitations: no limitations <Evonne Benton - Last Filed: 12/29/23 18:12> - General Source: RN notes reviewed, old records reviewed Mode of arrival: ambulatory Limitations: no limitations - History of Present Illness -: unknown Severity scale (1-10): 0 Consistency: constant, now resolved Improves with: none Worsens with: none Associated Symptoms: denies other symptoms <Adin Patterson - Last Filed: 12/29/23 21:12> - General Stated complaint: Mental health Time Seen by Provider: 12/29/23 18:12 - History of Present Illness Initial comments: 23 year old male presents to the emergency department for mental health evaluation. (Evonne Benton) This is a 23-year-old male to the ER for psychiatric evaluation today. Patient presents today for mental health evaluation with recent inpatient admission for mental health (Adin Patterson) - Related Data Previous Rx's Medication Instructions Recorded Benztropine Mesylate [Cogentin] 1 mg PO BID 14 Days #28 tab 12/27/23 [place] Carbonate ER [Lithobid] 450 mg PO HS 14 Days #14 tab 12/27/23 Nicotine Gum (Polacrilex) 2 mg BUCCAL Q4HR PRN 30 Days #180 12/27/23 [Nicorette] pieceofgum fluPHENAZine [Prolixin] 7.5 mg PO BID 2 Days #6 tab 12/27/23 fluPHENAZine decanoate [Prolixin 37.5 mg IM Q7D #1 ml 12/27/23 Decanoate] traZODone HCL [Desyrel] 200 mg PO HS 14 Days #28 tab 12/27/23 Allergies Allergy/AdvReac Type Severity Reaction Status Date / Time No Known Allergies Allergy Verified 12/29/23 20:17 Review of Systems ROS Other: All systems not noted in ROS Statement are negative. <Evonne Benton - Last Filed: 12/29/23 18:12> ROS Other: All systems not noted in ROS Statement are negative. <Adin Patterson - Last Filed: 12/29/23 21:12> ROS Statement: Those systems with pertinent positive or pertinent negative responses have been documented in the HPI. Past Medical History Past Medical History: No Reported History History of Any Multi-Drug Resistant Organisms: None Reported Past Surgical History: Orthopedic Surgery Additional Past Surgical History / Comment(s): oral surgery Past Anesthesia/Blood Transfusion Reactions: No Reported Reaction Smoking Status: Current every day smoker, Vaper - Past Family History Father Family Medical History: Hyperlipidemia Family Family Medical History: No Reported History <Evonne Benton - Last Filed: 12/29/23 18:12> General Exam <Evonne Benton - Last Filed: 12/29/23 18:12> General appearance: alert, in no apparent distress Head exam: Present: atraumatic, normocephalic, normal inspection Eye exam: Present: normal appearance, PERRL, EOMI. Absent: scleral icterus, conjunctival injection, periorbital swelling ENT exam: Present: normal exam, mucous membranes moist Neck exam: Present: normal inspection. Absent: tenderness, meningismus, lymphadenopathy Respiratory exam: Present: normal lung sounds bilaterally. Absent: respiratory distress, wheezes, rales, rhonchi, stridor Cardiovascular Exam: Present: regular rate, normal rhythm, normal heart sounds. Absent: systolic murmur, diastolic murmur, rubs, gallop, clicks GI/Abdominal exam: Present: soft, normal bowel sounds. Absent: distended, tenderness, guarding, rebound, rigid Extremities exam: Present: normal inspection, full ROM, normal capillary refill. Absent: tenderness, pedal edema, joint swelling, calf tenderness Back exam: Present: normal inspection Neurological exam: Present: alert, oriented X3, CN II-XII intact Psychiatric exam: Present: normal affect, normal mood Skin exam: Present: warm, dry, intact, normal color. Absent: rash <Adin Patterson - Last Filed: 12/29/23 21:12> - General Exam Comments Initial Comments: Visual Physical Exam Vital signs reviewed General: Well-appearing, nontoxic, no acute distress. Head: Normocephalic, atraumatic Eyes: PERRLA, EOMI ENT: Airway patent Chest: Nonlabored breathing Skin: No visual rash, normal skin tone Neuro: Alert and oriented 3 Musculoskeletal: No gross abnormalities (Evonne Benton) Course <Adin Patterson - Last Filed: 12/29/23 21:12> Vital Signs 12/29/23 20:11 Temperature 99.2 F Pulse Rate 66 Respiratory 18 Rate Blood Pressure 130/72 O2 Sat by Pulse 100 Oximetry - Reevaluation(s) Reevaluation #1: 12/29/23 21:11 Medical records reviewed (Adin Patterson) Reevaluation #2: 12/29/23 21:11 Medically cleared for psychiatric evaluation (Adin Patterson) Medical Decision Making <Evonne Benton - Last Filed: 12/29/23 18:12> <Adin Patterson - Last Filed: 12/29/23 21:12> - Medical Decision Making Quick note preformed by Evonne Benton PA-C (Evonne Benton) 23 male to ER for psychiatric evaluation, patient seen evaluated psychiatry in the ER okay for discharge home (Adin Patterson) Disposition <Evonne Benton - Last Filed: 12/29/23 18:12> Is patient prescribed a controlled substance at d/c from ED?: No <Adin Patterson - Last Filed: 12/29/23 21:12> Clinical Impression: Psychosis, Schizoaffective disorder, Encounter for psychiatric assessment Disposition: HOME SELF-CARE Condition: Fair Instructions (If sedation given, give patient instructions): Mood Disorders (ED) Referrals: None,Stated [Primary Care Provider] - 1-2 days
[2023-12-29 20:27] VITALS: BP 130/72; PULSE 66; RESP 18; TEMP 99.2
== END 2023-12-29 21:59 | disposition home or self-care (01) ==
LOC: EC 17:01
DX: Z00.8 Encounter for other general examination (principal); F25.9 Schizoaffective disorder, unspecified; F17.290 Nicotine dependence, other tobacco product, uncomplicated
CPT/HCPCS: 82075; 99284

== ENCOUNTER 2023-12-31 20:19 | Emergency (ER) | payer OTHER ==
[2023-12-31 20:55] VITALS: RESP 18; TEMP 98.7
--- NOTE | 2024-01-01 06:07 | ED ---
Psych HPI - General Chief Complaint: Psychiatric Symptoms Stated Complaint: mental health Time Seen by Provider: 01/01/24 06:00 Source: patient, RN notes reviewed Mode of arrival: ambulatory Limitations: no limitations - History of Present Illness Initial Comments: This is a 23 year old male who presents to the emergency department for suicidal ideations. Denies any associated plans. He was discharged from the mental health unit on 12/27/23 and evaluated here again on 12/29. On 12/29 he was discharged home. Patient initially said that he felt like he was discharged from the mental health unit too soon, but later went into more detail saying that he is having a difficult living situation with his family and needs to find somewhere else to stay such as the [facility] or a skilled nursing. He is also struggling to find employment due to a history of incarceration. States that he really just wants help trying to get his life back on track. MD Complaint: suicidal ideation, feels depressed - Related Data Previous Rx's Medication Instructions Recorded Benztropine Mesylate [Cogentin] 1 mg PO BID 14 Days #28 tab 12/27/23 [place] Carbonate ER [Lithobid] 450 mg PO HS 14 Days #14 tab 12/27/23 Nicotine Gum (Polacrilex) 2 mg BUCCAL Q4HR PRN 30 Days #180 12/27/23 [Nicorette] pieceofgum fluPHENAZine [Prolixin] 7.5 mg PO BID 2 Days #6 tab 12/27/23 fluPHENAZine decanoate [Prolixin 37.5 mg IM Q7D #1 ml 12/27/23 Decanoate] traZODone HCL [Desyrel] 200 mg PO HS 14 Days #28 tab 12/27/23 Allergies Allergy/AdvReac Type Severity Reaction Status Date / Time No Known Allergies Allergy Verified 12/29/23 20:17 Review of Systems ROS Statement: Those systems with pertinent positive or pertinent negative responses have been documented in the HPI. ROS Other: All systems not noted in ROS Statement are negative. Past Medical History Past Medical History: No Reported History History of Any Multi-Drug Resistant Organisms: None Reported Past Surgical History: Orthopedic Surgery Additional Past Surgical History / Comment(s): oral surgery Past Anesthesia/Blood Transfusion Reactions: No Reported Reaction Past Psychological History: Anxiety, Depression, PTSD, Schizophrenia Smoking Status: Current every day smoker, Vaper - Past Family History Father Family Medical History: Hyperlipidemia Family Family Medical History: No Reported History General Exam - General Exam Comments Initial Comments: Visual Physical Exam Vital signs reviewed General: Well-appearing, nontoxic, no acute distress. Head: Normocephalic, atraumatic Eyes: PERRLA, EOMI ENT: Airway patent Chest: Nonlabored breathing Skin: No visual rash, normal skin tone Neuro: Alert and oriented 3 Musculoskeletal: No gross abnormalities Limitations: no limitations General appearance: alert, in no apparent distress Head exam: Present: atraumatic, normocephalic, normal inspection Respiratory exam: Present: normal lung sounds bilaterally. Absent: respiratory distress, wheezes, rales, rhonchi, stridor Cardiovascular Exam: Present: regular rate, normal rhythm, normal heart sounds. Absent: systolic murmur, diastolic murmur, rubs, gallop, clicks Neurological exam: Present: alert, oriented X3, CN II-XII intact Psychiatric exam: Present: depressed, flat affect, suicidal ideation. Absent: homicidal ideation Skin exam: Present: warm, dry, intact, normal color. Absent: rash Course Vital Signs 12/31/23 01/01/24 20:44 14:01 Temperature 98.7 F 98.7 F Pulse Rate 85 82 Respiratory 18 18 Rate Blood Pressure 122/71 124/82 O2 Sat by Pulse 97 97 Oximetry Medical Decision Making - Medical Decision Making This is a 23 year old male who presents to the emergency department for psychiatric evaluation. Was pt. sent in by a medical professional or institution? @ -No Did you speak to anyone other than the patient for history? @ -No Did you review nursing and triage notes? @ -Yes, and I agree, it is accurate with regards to the patient's symptoms. Were old charts reviewed? @ -No Differential Diagnosis? @ -Differential Mental Health Depression, anxiety, bipolar, psychosis, schizophrenia, borderline personality, situational depression, adjustment disorder, behavioral disorder, brain tumor, malingering, substance abuse, encephalopathy, medication reaction, dementia, hypothyroidism, degenerative neurologic disorder, lupus.... This is not meant to be all-inclusive list EKG interpreted by me (3pts min.)? @ -Not obtained X-rays interpreted by me (1pt min.)? @ -Not obtained CT interpreted by me (1pt min.)? @ -Not obtained U/S interpreted by me (1pt. min.)? @ -Not obtained What testing was considered but not performed? (CT, X-rays, U/S, labs)? Why? @ -None What meds were considered but not given? Why? @ -None Did you discuss the management of the patient with other professionals? @ -EPS, who advised that the patient does not meet admission criteria and can be discharged. They spoke with [facility], and their ACT team will take the patient to a fdc. Did you reconcile home meds? @ -No Was smoking cessation discussed for >3mins.? @ -No Was critical care preformed (if so, how long)? @ -No Were there social determinants of health that impacted care today? How? (Homelessness, low income, unemployed, alcoholism, drug addiction, transportation, low edu. Level, literacy, decrease access to med. care, [facility], rehab)? @ -Unemployed and poor living situation, contributing to his mental health problems and subsequent visit today. Was there de-escalation of care discussed even if they declined? (Discuss DNR or withdrawal of care, Hospice)? @ -No What co-morbidities impacted this encounter? (DM, HTN, Smoking, COPD, CAD, Cancer, CVA, Hep., AIDS, mental health diagnosis, sleep apnea, morbid obesity)? @ -Schizoaffective disorder Was patient admitted / discharged? @ -Discharged. Patient's BAT was 0.0 and he was cleared for EPS evaluation. EPS evaluated the patient and advised that he does not meet criteria for inpatient psychiatric treatment. Patient is essentially seeking help with [facility] and moving his life forward. 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 Undiagnosed new problem with uncertain prognosis? @ -None Drug Therapy requiring intensive monitoring for toxicity (Heparin, Nitro, Insulin, Cardizem)? @ -None Were any procedures done? @ -None Diagnosis/symptom? @ -Schizoaffective disorder Acute, or Chronic, or Acute on Chronic? @ -Chronic Uncomplicated (without systemic symptoms) or Complicated (systemic symptoms)? @ -Uncomplicated Side effects of treatment? @ -None Exacerbation, Progression, or Severe Exacerbation] @ -Stable Poses a threat to life or bodily function? @ -This does in general impact his life and ability to function. Return precautions reviewed in depth, the patient is instructed to return to the emergency department with any new, worsening, or concerning symptoms. Patient verbalized understanding. This case was discussed in detail with the attending ED physician, Dr. Lovelace. Presentation, findings, and treatment plan discussed in detail as well. Disposition Clinical Impression: Schizoaffective disorder, Family conflict Disposition: HOME SELF-CARE Instructions (If sedation given, give patient instructions): Schizoaffective Disorder (ED) Additional Instructions: Return to the emergency department with any new, worsening, or concerning symptoms. Follow up with [facility]. Is patient prescribed a controlled substance at d/c from ED?: No Referrals: None,Stated [Primary Care Provider] - 1-2 days Time of Disposition: 13:40
[2024-01-01 14:12] VITALS: BP 124/82; PULSE 82
== END 2024-01-01 14:03 | disposition home or self-care (01) ==
LOC: EC 20:19
DX: F25.9 Schizoaffective disorder, unspecified (principal); Z63.79 Other stressful life events affecting family and household; F17.290 Nicotine dependence, other tobacco product, uncomplicated; Z86.59 Personal history of other mental and behavioral disorders
CPT/HCPCS: 82075; 99284

== ENCOUNTER 2024-01-05 19:04 | Emergency (ER) | payer OTHER ==
--- NOTE | 2024-01-05 21:43 | ED ---
General Adult HPI - General Chief complaint: Psychiatric Symptoms Stated complaint: mental health Time Seen by Provider: 01/05/24 19:32 Source: patient, RN notes reviewed, old records reviewed Mode of arrival: ambulatory Limitations: no limitations - History of Present Illness Initial comments: 23-year-old male presents emergency department for psychiatric evaluation. He is well-known to our department. States he is having suicidal ideations. Denies any plans or attempts. Does have a remote history of an attempt last year of jumping off a bridge. denies any suicidal ideations, times complaints. Denies any hallucinations. Presents for further evaluation at this time. Has no other acute complaints. Is asking for Tylenol for a muscle spasm in his right foot. - Related Data Previous Rx's Medication Instructions Recorded Benztropine Mesylate [Cogentin] 1 mg PO BID 14 Days #28 tab 12/27/23 [place] Carbonate ER [Lithobid] 450 mg PO HS 14 Days #14 tab 12/27/23 Nicotine Gum (Polacrilex) 2 mg BUCCAL Q4HR PRN 30 Days #180 12/27/23 [Nicorette] pieceofgum fluPHENAZine [Prolixin] 7.5 mg PO BID 2 Days #6 tab 12/27/23 fluPHENAZine decanoate [Prolixin 37.5 mg IM Q7D #1 ml 12/27/23 Decanoate] traZODone HCL [Desyrel] 200 mg PO HS 14 Days #28 tab 12/27/23 Allergies Allergy/AdvReac Type Severity Reaction Status Date / Time No Known Allergies Allergy Verified 12/29/23 20:17 Review of Systems ROS Statement: Those systems with pertinent positive or pertinent negative responses have been documented in the HPI. Review of Systems: CONST: Denies fever EYES: Denies blurry vision ENT: Denies nasal congestion C/V: Denies Chest pain RESP: Denies shortness of breath GI: Denies abdominal pain : Denies dysuria SKIN: Denies rash. MSK: Denies joint pain. NEURO: Denies headache ROS Other: All systems not noted in ROS Statement are negative. Past Medical History Past Medical History: No Reported History History of Any Multi-Drug Resistant Organisms: None Reported Past Surgical History: Orthopedic Surgery Additional Past Surgical History / Comment(s): oral surgery Past Anesthesia/Blood Transfusion Reactions: No Reported Reaction Past Psychological History: Anxiety, Depression, PTSD, Schizophrenia Smoking Status: Current every day smoker, Vaper - Past Family History Father Family Medical History: Hyperlipidemia Family Family Medical History: No Reported History General Exam - General Exam Comments Initial Comments: General: Appears in no acute distress. HEAD: Normal with no signs of head trauma. EYES: EOMI. ENT: Hearing grossly intact. RESPIRATORY: No respiratory distress. C/V: Regular rate and rhythm. ABD: Abdomen is nondistended. EXT: No obvious deformity. SKIN: No rashes or lesions observed on exposed skin. NEURO: Alert and oriented. Limitations: no limitations Course Vital Signs 01/05/24 19:20 Temperature 97.9 F Pulse Rate 83 Respiratory 16 Rate Blood Pressure 137/74 O2 Sat by Pulse 100 Oximetry Medical Decision Making - Medical Decision Making Was pt. sent in by a medical professional or institution (, PA, INCOME TAX CONSULTANT, urgent care, hospital, or fci...) When possible be specific @ -No Did you speak to anyone other than the patient for history (EMS, parent, family, police, friend...)? What history was obtained from this source @ -No Did you review nursing and triage notes (agree or disagree)? Why? @ -I reviewed and agree with nursing and triage notes Were old charts reviewed (outside hosp., previous admission, EMS record, old EKG, old radiological studies, urgent care reports/EKG's, fci records)? Report findings @ -Old charts reviewed Differential Diagnosis (chest pain, altered mental status, abdominal pain women, abdominal pain men, vaginal bleeding, weakness, fever, dyspnea, syncope, headache, dizziness, GI bleed, back pain, seizure, CVA, palpatations, mental health, musculoskeletal)? @ -Differential Mental Health Depression, anxiety, bipolar, psychosis, schizophrenia, borderline personality, situational depression, adjustment disorder, behavioral disorder, brain tumor, malingering, substance abuse, encephalopathy, medication reaction, dementia, hypothyroidism, degenerative neurologic disorder, lupus.... This is not meant to be all-inclusive list EKG interpreted by me (3pts min.). @ -None done X-rays interpreted by me (1pt min.). @ -None done CT interpreted by me (1pt min.). @ -None done U/S interpreted by me (1pt. min.). @ -None done What testing was considered but not performed or refused? (CT, X-rays, U/S, keith bs)? Why? @ -None What meds were considered but not given or refused? Why? @ -None Did you discuss the management of the patient with other professionals (professionals i.e. , PA, INCOME TAX CONSULTANT, lab, RT, psych nurse, social services analyst, tugger operator, teacher, security control room officer, director of casework services)? Give summary @ -EPS notified of the consult. They evaluate the patient and found out he has nowhere to go. His father states he can come pick him up but it might not be until morning. Patient is otherwise cleared for discharge. Does not meet inpatient psychiatric criteria. Will be given a safety plan by EPS. Was smoking cessation discussed for >3mins.? @ -No Was critical care preformed (if so, how long)? @ -No Were there social determinants of health that impacted care today? How? (Homelessness, low income, unemployed, alcoholism, drug addiction, transportation, low edu. Level, literacy, decrease access to med. care, half-way, rehab)? @ -No Was there de-escalation of care discussed even if they declined (Discuss DNR or withdrawal of care, Hospice)? DNR status @ -No What co-morbidities impacted this encounter? (DM, HTN, Smoking, COPD, CAD, Cancer, CVA, ARF, Chemo, Hep., AIDS, mental health diagnosis, sleep apnea, morbid obesity)? @ -None Was patient admitted / discharged? Hospital course, mention meds given and route, prescriptions, significant lab abnormalities, going to OR and other pertinent info. @ -Based on the patient's presentation and physical exam, presents for psychiatric evaluation. Was placed in green scrubs. BAT is 0. UDS is pending. Given Tylenol for foot cramp. Vital signs within acceptable limits. At this time patient is medically cleared for evaluation by psychiatry. Disposition pending psychiatric evaluation. EPS notified of the consult. They evaluate the patient and found out he has nowhere to go. His father states he can come pick him up but it might not be until morning. Patient is otherwise cleared for discharge. Does not meet inpatient psychiatric criteria. Will be given a safety plan by EPS. Undiagnosed new problem with uncertain prognosis? @ -No Drug Therapy requiring intensive monitoring for toxicity (Heparin, Nitro, Insulin, Cardizem)? @ -No Were any procedures done? @ -No Diagnosis/symptom? @ -Encounter for psychiatric evaluation, suicidal ideation Acute, or Chronic, or Acute on Chronic? @ -Acute Uncomplicated (without systemic symptoms) or Complicated (systemic symptoms)? @ -Uncomplicated Side effects of treatment? @ -No Exacerbation, Progression, or Severe Exacerbation? @ -No Poses a threat to life or bodily function? How? (Chest pain, USA, ID, pneumonia, PE, COPD, DKA, ARF, appy, cholecystitis, CVA, Diverticulitis, Homicidal, Suicidal, threat to staff... and all critical care pts) @ -Potentially, yes. Disposition Clinical Impression: Encounter for psychiatric assessment, Suicidal ideation Disposition: HOME SELF-CARE Condition: Good Additional Instructions: follow safety plan Is patient prescribed a controlled substance at d/c from ED?: No Referrals: None,Stated [Primary Care Provider] - 1-2 days Time of Disposition: 21:39
[2024-01-05] MEDS: ACETAMINOPHEN TAB 500 MG TAB PO STA (21:52)
[2024-01-05] MEDS: IBUPROFEN 400 MG TAB PO STA (21:53)
[2024-01-05 21:57] VITALS: BP 131/88; PULSE 72; RESP 18; TEMP 98.1
== END 2024-01-05 21:56 | disposition home or self-care (01) ==
LOC: EC 19:04
DX: Z00.8 Encounter for other general examination (principal); R45.851 Suicidal ideations; F17.290 Nicotine dependence, other tobacco product, uncomplicated; Z86.59 Personal history of other mental and behavioral disorders
CPT/HCPCS: 82075; 99285

== ENCOUNTER 2024-01-30 01:34 | Emergency (ER) | payer OTHER ==
--- NOTE | 2024-01-30 02:16 | ED ---
Psych HPI - General Source: patient, police Mode of arrival: ambulatory <Sourav Sams - Last Filed: 01/30/24 02:15> - General Source: patient, RN notes reviewed, old records reviewed <Herbert Lovelace - Last Filed: 02/02/24 05:56> - General Chief Complaint: Psychiatric Symptoms Stated Complaint: TIE IN HAND ORDER Time Seen by Provider: 01/30/24 02:15 - History of Present Illness Initial Comments: 23-year-old male brought in by PD with a pickup order. He denies any suicidal or homicidal ideation. No physical complaints. 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 He has a court petition for psychiatric evaluation as he has been a no-show for appointments. Unknown if he is taking his medications. Patient does endorse this and states he has not. At any appointments. States he has not been on his medications in a few days. Denies any suicidal or homicidal ideations, times complaints. Denies any hallucinations. He has no other acute complaints. Presents for further evaluation. Originally seen as a quick note. I evaluated the patient when he was placed in room 9. (Herbert Lovelace) - Related Data Home Medications Medication Instructions Recorded Confirmed Benztropine Mesylate [Cogentin] 1 mg PO DIRECTED 01/30/24 01/30/24 [place] Carbonate ER [Lithobid] 450 mg PO DIRECTED 01/30/24 01/30/24 Nicotine Gum (Polacrilex) 2 mg BUCCAL DIRECTED PRN 01/30/24 01/30/24 [Nicorette] fluPHENAZine decanoate [Prolixin 37.5 mg IM DIRECTED 01/30/24 01/30/24 Decanoate] traZODone HCL [Desyrel] 200 mg PO DIRECTED 01/30/24 01/30/24 Allergies Allergy/AdvReac Type Severity Reaction Status Date / Time No Known Allergies Allergy Verified 01/30/24 14:52 Review of Systems ROS Other: All systems not noted in ROS Statement are negative. <Sourav Sams - Last Filed: 01/30/24 02:15> ROS Other: All systems not noted in ROS Statement are negative. <Herbert Lovelace - Last Filed: 02/02/24 05:56> ROS Statement: Those systems with pertinent positive or pertinent negative responses have been documented in the HPI. Review of Systems: CONST: Denies fever EYES: Denies blurry vision ENT: Denies nasal congestion C/V: Denies Chest pain RESP: Denies shortness of breath GI: Denies abdominal pain : Denies dysuria SKIN: Denies rash. MSK: Denies joint pain. NEURO: Denies headache (Herbert Lovelace) Past Medical History Past Medical History: No Reported History History of Any Multi-Drug Resistant Organisms: None Reported Past Surgical History: Orthopedic Surgery Additional Past Surgical History / Comment(s): oral surgery, Past Anesthesia/Blood Transfusion Reactions: No Reported Reaction Past Psychological History: Anxiety, Depression, PTSD, Schizophrenia Smoking Status: Current every day smoker, Vaper Past Alcohol Use History: None Reported Past Drug Use History: Marijuana - Past Family History Father Family Medical History: Hyperlipidemia Family Family Medical History: No Reported History <Sourav Sams - Last Filed: 01/30/24 02:15> General Exam Limitations: no limitations <Sourav Sams - Last Filed: 01/30/24 02:15> <Herbert Lovelace - Last Filed: 02/02/24 05:56> - General Exam Comments Initial Comments: Visual Physical Exam Vital signs reviewed General: Well-appearing, nontoxic, no acute distress. Head: Normocephalic, atraumatic Eyes: PERRLA, EOMI ENT: Airway patent Chest: Nonlabored breathing Skin: No visual rash, normal skin tone Neuro: Alert and oriented 3 Musculoskeletal: No gross abnormalities (Sourav Sams) General: Appears in no acute distress. HEAD: Normal with no signs of head trauma. EYES: EOMI. ENT: Hearing grossly intact. RESPIRATORY: No respiratory distress. C/V: Regular rate and rhythm. ABD: Abdomen is nondistended. EXT: No obvious deformity. SKIN: No rashes or lesions observed on exposed skin. NEURO: Alert and oriented. (Herbert Lovelace) Course Vital Signs 01/30/24 01/30/24 01/30/24 01:35 07:40 21:11 Temperature 96.3 F L 98.1 F Pulse Rate 68 68 72 Respiratory 16 16 Rate Blood Pressure 131/80 120/68 122/78 O2 Sat by Pulse 100 98 100 Oximetry 01/31/24 01/31/24 06:52 11:14 Temperature 98.2 F 98.2 F Pulse Rate 64 84 Respiratory 18 16 Rate Blood Pressure 120/68 122/70 O2 Sat by Pulse 98 98 Oximetry Medical Decision Making <Sourav Sams - Last Filed: 01/30/24 02:15> - Lab Data Result diagrams: 01/30/24 15:33 01/30/24 15:33 <Herbert Lovelace - Last Filed: 02/02/24 05:56> - Medical Decision Making I performed the quick note portion of this visit, electronically signed Sourav Sams PA-C (Sourav Sams) Was pt. sent in by a medical professional or institution (, [facility], [employer]ING [employer]ACHINE [employer]ANER, urgent care, hospital, or fdc...) When possible be specific @ -No Did you speak to anyone other than the patient for history (EMS, parent, family, police, friend...)? What history was obtained from this source @ -No Did you review nursing and triage notes (agree or disagree)? Why? @ -I reviewed and agree with nursing and triage notes Were old charts reviewed (outside hosp., previous admission, EMS record, old EKG, old radiological studies, urgent care reports/EKG's, fdc records)? Report findings @ -Old charts reviewed Differential Diagnosis (chest pain, altered mental status, abdominal pain women, abdominal pain men, vaginal bleeding, weakness, fever, dyspnea, syncope, headache, dizziness, GI bleed, back pain, seizure, CVA, palpatations, mental health, musculoskeletal)? @ -Differential Mental Health Depression, anxiety, bipolar, psychosis, schizophrenia, borderline personality, situational depression, adjustment disorder, behavioral disorder, brain tumor, malingering, substance abuse, encephalopathy, medication reaction, dementia, hypothyroidism, degenerative neurologic disorder, lupus.... This is not meant to be all-inclusive list EKG interpreted by me (3pts min.). @ -None done X-rays interpreted by me (1pt min.). @ -None done CT interpreted by me (1pt min.). @ -None done U/S interpreted by me (1pt. min.). @ -None done What testing was considered but not performed or refused? (CT, X-rays, U/S, labs)? Why? @ -None What meds were considered but not given or refused? Why? @ -None Did you discuss the management of the patient with other professionals (professionals i.e. , PA, OPENING MACHINE CLEANER, lab, RT, psych nurse, social work supervisor, foster care social worker, teacher, personal banking officer, human services case manager)? Give summary @ -EPS notified of the consult. Was smoking cessation discussed for >3mins.? @ -No Was critical care preformed (if so, how long)? @ -No Were there social determinants of health that impacted care today? How? (Homelessness, low income, unemployed, alcoholism, drug addiction, transportation, low edu. Level, literacy, decrease access to med. care, long term, rehab)? @ -No Was there de-escalation of care discussed even if they declined (Discuss DNR or withdrawal of care, Hospice)? DNR status @ -No What co-morbidities impacted this encounter? (DM, HTN, Smoking, COPD, CAD, Cancer, CVA, ARF, Chemo, Hep., AIDS, mental health diagnosis, sleep apnea, morbid obesity)? @ -None Was patient admitted / discharged? Hospital course, mention meds given and route, prescriptions, significant lab abnormalities, going to OR and other pertinent info. @ -Patient presents for psychiatric evaluation. Was a court ordered petition. Patient placed in green scrubs. Currently denies any suicidal or homicidal i deations or attempts or plans. Denies any hallucinations. BAT is slightly positive at 0.036. UDS is positive for marijuana. Vital signs are within acceptable limits. At this time, patient is medically cleared for evaluation by EPS when patient is sober. Disposition pending psychiatric evaluation. EPS notified of the consult. It appears EPS eventually evaluated the patient and cleared him for discharge from the ER on January 31, 2024.It does appear patient was initially going to be admitted to inpatient psychiatry however on reevaluation was cleared and discharged by psych. This was done after my shift ended. Undiagnosed new problem with uncertain prognosis? @ -No Drug Therapy requiring intensive monitoring for toxicity (Heparin, Nitro, Insulin, Cardizem)? @ -No Were any procedures done? @ -No Diagnosis/symptom? @ -Encounter for psychiatric evaluation Acute, or Chronic, or Acute on Chronic? @ -Acute Uncomplicated (without systemic symptoms) or Complicated (systemic symptoms)? @ -Uncomplicated Side effects of treatment? @ -None Exacerbation, Progression, or Severe Exacerbation] @ -No Poses a threat to life or bodily function? @ -Unlikely (Herbert Lovelace) - Lab Data Lab Results 01/30/24 01/30/24 01/30/24 Range/Units 02:03 15:33 15:33 WBC 7.7 (3.8-10.6) k/uL RBC 5.32 (4.30-5.90) m/uL Hgb 14.5 (13.0-17.5) gm/dL Hct 44.0 (39.0-53.0) % MCV 82.8 (80.0-100.0) fL MCH 27.3 (25.0-35.0) pg MCHC 33.0 (31.0-37.0) g/dL RDW 14.2 (11.5-15.5) % Plt Count 276 (150-450) k/uL MPV 7.9 Sodium 139 (137-145) mmol/L Potassium 4.3 (3.5-5.1) mmol/L Chloride 109 H (98-107) mmol/L Carbon Dioxide 24 (22-30) mmol/L Anion Gap 6 mmol/L BUN 13 (9-20) mg/dL Creatinine 0.67 (0.66-1.25) mg/dL Est GFR (CKD-EPI)AfAm >90 (>60 ml/min/1.73 sqM) Est GFR (CKD-EPI)NonAf >90 (>60 ml/min/1.73 sqM) Glucose 100 H (74-99) mg/dL Calcium 9.5 (8.4-10.2) mg/dL Total Bilirubin 0.7 (0.2-1.3) mg/dL AST 32 (17-59) U/L ALT 22 (4-49) U/L Alkaline Phosphatase 68 (38-126) U/L Total Protein 6.8 (6.3-8.2) g/dL Albumin 4.3 (3.5-5.0) g/dL Urine Color Urine Appearance (Clear) Urine pH (5.0-8.0) Ur Specific [place] (1.001-1.035) Urine Protein (Negative) Urine Glucose (UA) (Negative) Urine Ketones (Negative) Urine Blood (Negative) Urine Nitrite (Negative) Urine Bilirubin (Negative) Urine Urobilinogen (<2.0) mg/dL Ur Leukocyte Esterase (Negative) Urine RBC (0-5) /hpf Urine WBC (0-5) /hpf Urine Opiates Screen Not Detected (NotDetected) Ur Oxycodone Screen Not Detected (NotDetected) Urine Methadone Screen Not Detected (NotDetected) Ur Barbiturates Screen Not Detected (NotDetected) U Tricyclic Antidepress Not Detected (NotDetected) Ur Phencyclidine Scrn Not Detected (NotDetected) Ur Amphetamines Screen Not Detected (NotDetected) U Methamphetamines Scrn Not Detected (NotDetected) U Benzodiazepines Scrn Not Detected (NotDetected) Urine Cocaine Screen Not Detected (NotDetected) U Marijuana (THC) Screen Detected H (NotDetected) SARS-CoV-2 (PCR) (Not Detectd) 01/30/24 01/30/24 Range/Units 15:33 15:33 WBC (3.8-10.6) k/uL RBC (4.30-5.90) m/uL Hgb (13.0-17.5) gm/dL Hct (39.0-53.0) % MCV (80.0-100.0) fL MCH (25.0-35.0) pg MCHC (31.0-37.0) g/dL RDW (11.5-15.5) % Plt Count (150-450) k/uL MPV Sodium (137-145) mmol/L Potassium (3.5-5.1) mmol/L Chloride (98-107) mmol/L Carbon Dioxide (22-30) mmol/L Anion Gap mmol/L BUN (9-20) mg/dL Creatinine (0.66-1.25) mg/dL Est GFR (CKD-EPI)AfAm (>60 ml/min/1.73 sqM) Est GFR (CKD-EPI)NonAf (>60 ml/min/1.73 sqM) Glucose (74-99) mg/dL Calcium (8.4-10.2) mg/dL Total Bilirubin (0.2-1.3) mg/dL AST (17-59) U/L ALT (4-49) U/L Alkaline Phosphatase (38-126) U/L Total Protein (6.3-8.2) g/dL Albumin (3.5-5.0) g/dL Urine Color Colorless Urine Appearance Clear (Clear) Urine pH 7.0 (5.0-8.0) Ur Specific [place] 1.015 (1.001-1.035) Urine Protein Negative (Negative) Urine Glucose (UA) Negative (Negative) Urine Ketones Negative (Negative) Urine Blood Negative (Negative) Urine Nitrite Negative (Negative) Urine Bilirubin Negative (Negative) Urine Urobilinogen <2.0 (<2.0) mg/dL Ur Leukocyte Esterase Trace H (Negative) Urine RBC 2 (0-5) /hpf Urine WBC 3 (0-5) /hpf Urine Opiates Screen (NotDetected) Ur Oxycodone Screen (NotDetected) Urine Methadone Screen (NotDetected) Ur Barbiturates Screen (NotDetected) U Tricyclic Antidepress (NotDetected) Ur Phencyclidine Scrn (NotDetected) Ur Amphetamines Screen (NotDetected) U Methamphetamines Scrn (NotDetected) U Benzodiazepines Scrn (NotDetected) Urine Cocaine Screen (NotDetected) U Marijuana (THC) Screen (NotDetected) SARS-CoV-2 (PCR) Not Detected (Not Detectd) Disposition <Sourav Sams - Last Filed: 01/30/24 02:15> <Herbert Lovelace - Last Filed: 02/02/24 05:56> Clinical Impression: Encounter for psychiatric assessment Disposition: TRANSFER TO PSYCH HOSP/UNIT Condition: Good Referrals: None,Stated [Primary Care Provider] - 1-2 days
[2024-01-30 02:38] LABS: Amphetamine Screen,Urine Not Detected (NotDetected); Barbiturate Screen,Urine Not Detected (NotDetected); Benzodiazepines Screen,Urine Not Detected (NotDetected); Cocaine Screen,Urine Not Detected (NotDetected); Methadone Screen, Urine Not Detected (NotDetected); Opiate Screen,Urine Not Detected (NotDetected); Oxycodone Screen, Urine Not Detected (NotDetected); Phencyclidine Screen,Urine Not Detected (NotDetected); Tricyclic Antidepressant,Urine Not Detected (NotDetected); Urn Cannabinoid Scrn Detected (NotDetected)
[2024-01-30 15:47] LABS: HGB 14.5 gm/dL (13.0-17.5); MCH 27.3 pg (25.0-35.0); MCV 82.8 fL (80.0-100.0); Mean Platelet Volume 7.9; Platelet Count 276 k/uL (150-450); RBC 5.32 m/uL (4.30-5.90); RDW 14.2 % (11.5-15.5); WBC 7.7 k/uL (3.8-10.6)
[2024-01-30 16:03] LABS: ALT 22 U/L (4-49); AST 32 U/L (17-59); African American GFR (CKD) >90 (>60 ml/min/1.73 sqM); Albumin 4.3 g/dL (3.5-5.0); Alkaline Phosphatase 68 U/L (38-126); Anion Gap 6 mmol/L; Blood Urea Nitrogen 13 mg/dL (9-20); Calcium 9.5 mg/dL (8.4-10.2); Carbon Dioxide 24 mmol/L (22-30); Chloride 109 mmol/L (98-107); Glucose 100 mg/dL (74-99); Non-African American GFR(CKD) >90 (>60 ml/min/1.73 sqM); Potassium 4.3 mmol/L (3.5-5.1); Sodium 139 mmol/L (137-145); Total Bilirubin 0.7 mg/dL (0.2-1.3); Total Protein 6.8 g/dL (6.3-8.2)
[2024-01-30 19:49] LABS: Appearance,Urine Clear (Clear); Bilirubin,Urine Negative (Negative); Blood,Urine Negative (Negative); Color,Urine Colorless; Glucose,Urine (UA) Negative (Negative); Ketones,Urine Negative (Negative); Leukocyte Esterase,Urine Trace (Negative); Nitrite,Urine Negative (Negative); Protein,Urine Negative (Negative); RBC,Urine 2 /hpf (0-5); Specific Gravity,Urine 1.015 (1.001-1.035); Urobilinogen,Urine <2.0 mg/dL (<2.0); WBC,Urine 3 /hpf (0-5)
[2024-01-31 07:23] VITALS: TEMP 98.2
[2024-01-31 11:27] VITALS: BP 122/70; PULSE 84; RESP 16
== END 2024-01-31 11:14 ==
LOC: EC 01:34
DX: Z13.39 Encounter for screening examination for other mental health and behavioral disorders (principal); F41.9 Anxiety disorder, unspecified; F32.A Depression, unspecified; F17.290 Nicotine dependence, other tobacco product, uncomplicated; F12.90 Cannabis use, unspecified, uncomplicated; Z20.822 Contact with and (suspected) exposure to COVID-19; Z79.899 Other long term (current) drug therapy
CPT/HCPCS: 36415; 80053; 80306; 81001; 82075; 85027; 87635; 99285

== ENCOUNTER 2024-10-09 23:26 | Emergency (ER) | payer OTHER ==
--- NOTE | 2024-10-09 23:56 | ED ---
General Adult HPI - General Source: patient, RN notes reviewed, old records reviewed Mode of arrival: ambulatory Limitations: no limitations <Ghassan Sanchez - Last Filed: 10/09/24 23:54> <Michael Turcios - Last Filed: 10/10/24 03:23> - General Chief complaint: Psychiatric Symptoms Stated complaint: Medication Refill Time Seen by Provider: 10/09/24 23:33 - History of Present Illness Initial comments: 24-year-old male presenting for mental health evaluation. Patient states he has not been taking his medication for the past 1 month. He states he had increased anger issues and had a disagreement with one of his best friends. He denies suicidal or homicidal ideation at this time. No physical complaints. (Ghassan Sanchez) - Related Data Home Medications Medication Instructions Recorded Confirmed Benztropine Mesylate [Cogentin] 1 mg PO DIRECTED 01/30/24 01/30/24 [place] Carbonate ER [Lithobid] 450 mg PO DIRECTED 01/30/24 01/30/24 Nicotine Gum (Polacrilex) 2 mg BUCCAL DIRECTED PRN 01/30/24 01/30/24 [Nicorette] fluPHENAZine decanoate [Prolixin 37.5 mg IM DIRECTED 01/30/24 01/30/24 Decanoate] traZODone HCL [Desyrel] 200 mg PO DIRECTED 01/30/24 01/30/24 Allergies Allergy/AdvReac Type Severity Reaction Status Date / Time No Known Allergies Allergy Verified 10/09/24 23:29 Review of Systems ROS Other: All systems not noted in ROS Statement are negative. <Ghassan Sanchez - Last Filed: 10/09/24 23:54> ROS Other: All systems not noted in ROS Statement are negative. <Michael Turcios - Last Filed: 10/10/24 03:23> ROS Statement: Those systems with pertinent positive or pertinent negative responses have been documented in the HPI. Past Medical History Past Medical History: No Reported History History of Any Multi-Drug Resistant Organisms: None Reported Past Surgical History: Orthopedic Surgery Additional Past Surgical History / Comment(s): oral surgery, Past Anesthesia/Blood Transfusion Reactions: No Reported Reaction Past Psychological History: Anxiety, Depression, PTSD, Schizophrenia Smoking Status: Current every day smoker, Vaper Past Alcohol Use History: None Reported Past Drug Use History: Marijuana - Past Family History Father Family Medical History: Hyperlipidemia Family Family Medical History: No Reported History <JosenieshabreonnaGhassan Mary - Last Filed: 10/09/24 23:54> General Exam Limitations: no limitations General appearance: alert, in no apparent distress Head exam: Present: atraumatic, normocephalic Eye exam: Present: normal appearance, PERRL ENT exam: Present: normal exam Neck exam: Present: normal inspection. Absent: tenderness Respiratory exam: Present: normal lung sounds bilaterally. Absent: respiratory distress Cardiovascular Exam: Present: regular rate, normal rhythm GI/Abdominal exam: Absent: distended Extremities exam: Present: normal inspection Neurological exam: Present: alert, oriented X3, CN II-XII intact. Absent: motor sensory deficit Psychiatric exam: Present: depressed, flat affect Skin exam: Present: warm, dry, intact <Ghassan Sanchez - Last Filed: 10/09/24 23:54> Course <Ghassan Sanchez - Last Filed: 10/09/24 23:54> Vital Signs 10/09/24 10/10/24 23:27 02:48 Temperature 98.3 F 98.0 F Pulse Rate 54 L 66 Respiratory 18 14 Rate Blood Pressure 146/90 97/56 O2 Sat by Pulse 99 99 Oximetry - Reevaluation(s) Reevaluation #1: 10/09/24 23:55 Cleared for EPS evaluation (Ghassan Sanchez) Medical Decision Making <Ghassan Sanchez - Last Filed: 10/09/24 23:54> <Michael Turcios - Last Filed: 10/10/24 03:23> - Medical Decision Making Was pt. sent in by a medical professional or institution (, PA, SUPERVISOR [employer] HANGING, urgent care, hospital, or [facility]...) When possible be specific @ -No Did you speak to anyone other than the patient for history (EMS, parent, family, police, friend...)? What history was obtained from this source @ -No Did you review nursing and triage notes (agree or disagree)? Why? @ -I reviewed and agree with nursing and triage notes Were old charts reviewed (outside hosp., previous admission, EMS record, old EKG, old radiological studies, urgent care reports/EKG's, [facility] records)? Report findings @ -No old charts were reviewed Differential Mental Health Depression, anxiety, bipolar, psychosis, schizophrenia, borderline personality, situational depression, adjustment disorder, behavioral disorder, brain tumor, m alingering, substance abuse, encephalopathy, medication reaction, dementia, hypothyroidism, degenerative neurologic disorder, lupus.... This is not meant to be all-inclusive list EKG interpreted by me (3pts min.). @ -As above X-rays interpreted by me (1pt min.). @ -None done CT interpreted by me (1pt min.). @ -None done U/S interpreted by me (1pt. min.). @ -None done What testing was considered but not performed or refused? (CT, X-rays, U/S, labs)? Why? @ -None What meds were considered but not given or refused? Why? @ -None Did you discuss the management of the patient with other professionals (professionals i.e. , PA, SUPERVISOR [employer]ANGING, lab, RT, psych nurse, social worker psychiatric, title lawyer, teacher, hospital chief financial officer, renal case manager)? Give summary @ -No Was smoking cessation discussed for >3mins.? @ -No Was critical care preformed (if so, how long)? @ -No Were there social determinants of health that impacted care today? How? (Homelessness, low income, unemployed, alcoholism, drug addiction, transport ation, low edu. Level, literacy, decrease access to med. care, shelter, rehab)? @ -No Was there de-escalation of care discussed even if they declined (Discuss DNR or withdrawal of care, Hospice)? DNR status @ -No What co-morbidities impacted this encounter? (DM, HTN, Smoking, COPD, CAD, Cancer, CVA, ARF, Chemo, Hep., AIDS, mental health diagnosis, sleep apnea, morbid obesity)? @ -[Depression Was patient admitted / discharged? Hospital course, mention meds given and route, prescriptions, significant lab abnormalities, going to OR and other pertinent info. @ -[Patient medically cleared, awaiting EPS evaluation (Gahssan Sanchez) Was patient admitted / discharged? Hospital course, mention meds given and route, prescriptions, significant lab abnormalities, going to OR and other pertinent info. @ -[I received this patient as a signout, pending the EPS evaluation. EPS saw the patient, discussed with the psychiatrist and then formulated a safety plan with the patient. He is stable for discharge. Undiagnosed new problem with uncertain prognosis? @ -[No] Drug Therapy requiring intensive monitoring for toxicity (Heparin, Nitro, Insulin, Cardizem)? @ -[No] Were any procedures done? @ -[No] Diagnosis/symptom? @ -[Mood disorder Acute, or Chronic, or Acute on Chronic? @ -[Acute Uncomplicated (without systemic symptoms) or Complicated (systemic symptoms)? @ -[Uncomplicated Side effects of treatment? @ -[No] Exacerbation, Progression, or Severe Exacerbation? @ -[No] Poses a threat to life or bodily function? How? (Chest pain, [place], VT, pneumonia, PE, COPD, DKA, ARF, appy, cholecystitis, CVA, Diverticulitis, Homicidal, Suicidal, threat to staff... and all critical care pts) @ -[No] (Michael Turcios) Disposition <Ghassan Sanchez - Last Filed: 10/09/24 23:54> Is patient prescribed a controlled substance at d/c from ED?: No <Michael Turcios - Last Filed: 10/10/24 03:23> Clinical Impression: Mood disorder Disposition: HOME SELF-CARE Condition: Good Instructions (If sedation given, give patient instructions): Mood Disorders (ED) Referrals: None,Stated [Primary Care Provider] - 1-2 days
[2024-10-10 02:52] VITALS: BP 97/56; PULSE 66; RESP 14; TEMP 98
== END 2024-10-10 03:50 | disposition home or self-care (01) ==
LOC: EC 23:26
DX: F39 Unspecified mood [affective] disorder (principal); F32.A Depression, unspecified; F17.290 Nicotine dependence, other tobacco product, uncomplicated
CPT/HCPCS: 82075; 99285

== ENCOUNTER 2024-12-12 20:17 | Emergency (ER) | payer OTHER ==
[2024-12-12 20:28] VITALS: BP 140/95; PULSE 83; RESP 18; TEMP 99.1
--- NOTE | 2024-12-12 20:29 | ED ---
General Adult HPI - General Stated complaint: Pickup order Time Seen by Provider: 12/12/24 20:19 Source: patient, police, RN notes reviewed, old records reviewed Limitations: no limitations - History of Present Illness Initial comments: 24-year-old male brought in coronary pickup for medication noncompliance. Patient is prescribed psychiatric medication and is uncertain what he is supposed to take but is currently not taking it. Patient has no physical complaints. He is not suicidal homicidal. He was brought in by local police and was cooperative. - Related Data Home Medications Medication Instructions Recorded Confirmed No Known Home Medications 12/12/24 12/12/24 Allergies Allergy/AdvReac Type Severity Reaction Status Date / Time No Known Allergies Allergy Verified 12/12/24 20:42 Review of Systems ROS Statement: Those systems with pertinent positive or pertinent negative responses have been documented in the HPI. ROS Other: All systems not noted in ROS Statement are negative. Past Medical History Past Medical History: No Reported History History of Any Multi-Drug Resistant Organisms: None Reported Past Surgical History: Orthopedic Surgery Additional Past Surgical History / Comment(s): oral surgery, Past Anesthesia/Blood Transfusion Reactions: No Reported Reaction Past Psychological History: Anxiety, Depression, PTSD, Schizophrenia Smoking Status: Current every day smoker, Vaper Past Alcohol Use History: None Reported Past Drug Use History: Marijuana - Past Family History Father Family Medical History: Hyperlipidemia Family Family Medical History: No Reported History General Exam General appearance: alert, in no apparent distress Head exam: Present: atraumatic, normocephalic Eye exam: Present: normal appearance, PERRL ENT exam: Present: normal exam Neck exam: Present: normal inspection. Absent: tenderness, meningismus Respiratory exam: Present: normal lung sounds bilaterally. Absent: respiratory distress, wheezes Cardiovascular Exam: Present: regular rate, normal rhythm GI/Abdominal exam: Present: soft, distended Neurological exam: Present: alert, oriented X3, CN II-XII intact. Absent: motor sensory deficit Psychiatric exam: Present: flat affect. Absent: homicidal ideation, suicidal ideation Skin exam: Present: warm, dry, intact Course Vital Signs 12/12/24 20:21 Temperature 99.1 F Pulse Rate 83 Respiratory 18 Rate Blood Pressure 140/95 O2 Sat by Pulse 100 Oximetry - Reevaluation(s) Reevaluation #1: 12/12/24 20:29 Cleared for EPS evaluation Medical Decision Making - Medical Decision Making Was pt. sent in by a medical professional or institution (CARLOS ALBERTO Robison, CARDIAC RN, urgent care, hospital, or care home...) When possible be specific @ -No Did you speak to anyone other than the patient for history (EMS, parent, family, police, friend...)? What history was obtained from this source @ -No Did you review nursing and triage notes (agree or disagree)? Why? @ -I reviewed and agree with nursing and triage notes Were old charts reviewed (outside hosp., previous admission, EMS record, old EKG, old radiological studies, urgent care reports/EKG's, care home records)? Report findings @ -No old charts were reviewed Differential Mental Health Depression, anxiety, bipolar, psychosis, schizophrenia, borderline personality, situational depression, adjustment disorder, behavioral disorder, brain tumor, malingering, substance abuse, encephalopathy, medication reaction, dementia, hypothyroidism, degenerative neurologic disorder, lupus.... This is not meant to be all-inclusive list EKG interpreted by me (3pts min.). @ -As above X-rays interpreted by me (1pt min.). @ -None done CT interpreted by me (1pt min.). @ -None done U/S interpreted by me (1pt. min.). @ -None done What testing was considered but not performed or refused? (CT, X-rays, U/S, labs)? Why? @ -None What meds were considered but not given or refused? Why? @ -None Did you discuss the management of the patient with other professionals (professionals i.e. CARLOS ALBERTO Robison, CARDIAC RN, lab, RT, psych nurse, social research assistant, management professional, teacher, precinct commanding officer, machine adjuster leader case trim)? Give summary @Patient was medically cleared and evaluated by EPS, felt to be safe for discharge. The ACT team has been notified regarding the pickup order. Was smoking cessation discussed for >3mins.? @ -No Was critical care preformed (if so, how long)? @ -No Were there social determinants of health that impacted care today? How? (Homelessness, low income, unemployed, alcoholism, drug addiction, transportation, low edu. Level, literacy, decrease access to med. care, residential, rehab)? @ -No Was there de-escalation of care discussed even if they declined (Discuss DNR or withdrawal of care, Hospice)? DNR status @ -No What co-morbidities impacted this encounter? (DM, HTN, Smoking, COPD, CAD, Cancer, CVA, ARF, Chemo, Hep., AIDS, mental health diagnosis, sleep apnea, morbid obesity)? @ -None Was patient admitted / discharged? Hospital course, mention meds given and route, prescriptions, significant lab abnormalities, going to OR and other pertinent info. @24-year-old male court order pickup, no physical complaints, no suicidal or homicidal ideation. Patient is calm and cooperative. He is medically cleared and evaluated by EPS felt to be safe for discharge. Undiagnosed new problem with uncertain prognosis? @ -No Drug Therapy requiring intensive monitoring for toxicity (Heparin, Nitro, Insulin, Cardizem)? @ -No Were any procedures done? @ -No Diagnosis/symptom? @ -Medical noncompliance for psychiatric disease Acute, or Chronic, or Acute on Chronic? @ -Acute on chronic Uncomplicated (without systemic symptoms) or Complicated (systemic symptoms)? @ -Default Side effects of treatment? @ -No Exacerbation, Progression, or Severe Exacerbation? @ -No Poses a threat to life or bodily function? How? (Chest pain, [place], [place], pneumonia, PE, COPD, DKA, ARF, appy, cholecystitis, CVA, Diverticulitis, Homicidal, Suicidal, threat to staff... and all critical care pts) @ -No Disposition Clinical Impression: Encounter for psychiatric assessment Disposition: HOME SELF-CARE Condition: Fair Additional Instructions: Please follow-up with the ACT team and [facility] Is patient prescribed a controlled substance at d/c from ED?: No Referrals: None,Stated [Primary Care Provider] - 1-2 days Patrice Lund MD [STAFF PHYSICIAN] - 1-2 days Time of Disposition: 21:17
== END 2024-12-12 21:20 | disposition home or self-care (01) ==
LOC: EC 20:17
DX: Z04.6 Encounter for general psychiatric examination, requested by authority (principal); F17.290 Nicotine dependence, other tobacco product, uncomplicated
CPT/HCPCS: 82075; 99283

== ENCOUNTER 2024-12-19 18:40 | Emergency (ER) | payer OTHER ==
--- NOTE | 2024-12-19 18:52 | ED ---
General Adult HPI - General Source: patient, RN notes reviewed Mode of arrival: ambulatory Limitations: no limitations - History of Present Illness Time: 14:00 <Kevin Desai - Last Filed: 12/19/24 18:50> <Sourav Sams - Last Filed: 12/19/24 20:43> - General Stated complaint: hit in the ribs boxing Time Seen by Provider: 12/19/24 18:45 - History of Present Illness Initial comments: Quick note: This is a 24-year-old male presenting with left anterior rib pain (10/) since 1400 this afternoon. Patient states he was boxing when he was struck in the left chest causing subsequent pain. Patient states he took a nap afterwards with worsening pain and some difficulty breathing. States dys pnea/SOB has not worsened since upon waking after the nap. Denies hemoptysis, dizziness, lightheadedness, vision changes. (Kevin Desai) 24-year-old male presenting with chief complaint of rib pain. Patient was hit on the left side of the chest this afternoon while he was boxing. He is having pain that is worse with breathing and movement to the area now. He is not having any difficulty catching his breath. No dizziness, lightheadedness, hemoptysis, abdominal pain, nausea, vomiting, numbness, tingling, weakness. (Sourav Sams) - Related Data Previous Rx's Medication Instructions Recorded Lidocaine 5% Patch [Lidoderm 5% 1 patch TOPICAL DAILY PRN #30 patch 12/19/24 Patch] Allergies Allergy/AdvReac Type Severity Reaction Status Date / Time No Known Allergies Allergy Verified 12/19/24 19:41 Review of Systems ROS Other: All systems not noted in ROS Statement are negative. <Kevin Desai - Last Filed: 12/19/24 18:50> ROS Other: All systems not noted in ROS Statement are negative. <Sourav Sams - Last Filed: 12/19/24 20:43> ROS Statement: Those systems with pertinent positive or pertinent negative responses have been documented in the HPI. Past Medical History Past Medical History: No Reported History History of Any Multi-Drug Resistant Organisms: None Reported Past Surgical History: Orthopedic Surgery Additional Past Surgical History / Comment(s): oral surgery, Past Anesthesia/Blood Transfusion Reactions: No Reported Reaction Past Psychological History: Anxiety, Depression, PTSD, Schizophrenia Smoking Status: Current every day smoker, Vaper Past Alcohol Use History: None Reported Past Drug Use History: Marijuana - Past Family History Father Family Medical History: Hyperlipidemia Family Family Medical History: No Reported History <Kevin Desai - Last Filed: 12/19/24 18:50> General Exam <Kevin Desai - Last Filed: 12/19/24 18:50> Limitations: no limitations General appearance: alert, in no apparent distress Head exam: Present: atraumatic, normocephalic, normal inspection Eye exam: Present: normal appearance, EOMI Neck exam: Present: normal inspection. Absent: meningismus Respiratory exam: Present: normal lung sounds bilaterally, chest wall tendernes s. Absent: respiratory distress, wheezes, rales, rhonchi, stridor Cardiovascular Exam: Present: regular rate, normal rhythm, normal heart sounds. Absent: systolic murmur, diastolic murmur, rubs, gallop, clicks Neurological exam: Present: alert, oriented X3 Psychiatric exam: Present: normal affect, normal mood Skin exam: Present: warm, dry <Sourav Sams - Last Filed: 12/19/24 20:43> - General Exam Comments Initial Comments: Visual Physical Exam Vital signs reviewed General: Well-appearing, nontoxic, no acute distress. Head: Normocephalic, atraumatic Eyes: PERRLA, EOMI ENT: Airway patent Chest: Nonlabored breathing Skin: No visual rash, normal skin tone Neuro: Alert and oriented 3 Musculoskeletal: No gross abnormalities (Kevin Desai) Course Vital Signs 12/19/24 12/19/24 19:39 20:31 Temperature 98.8 F Pulse Rate 90 94 Respiratory 18 18 Rate Blood Pressure 135/85 124/80 O2 Sat by Pulse 96 100 Oximetry Medical Decision Making <Kevin Desai - Last Filed: 12/19/24 18:50> <Sourav Sams - Last Filed: 12/19/24 20:43> - Medical Decision Making I completed the quick note portion of this chart signed GAEL Morataya (Kevin Desai) Was pt. sent in by a medical professional or institution (CARLOS ALBERTO Robison, PUBLIC TRANSIT TROLLEY DRIVER, urgent care, hospital, or snf...) When possible be specific @ -No Did you speak to anyone other than the patient for history (EMS, parent, family, police, friend...)? What history was obtained from this source @ -No Did you review nursing and triage notes (agree or disagree)? Why? @ -I reviewed and agree with nursing and triage notes Were old charts reviewed (outside hosp., previous admission, EMS record, old EKG, old radiological studies, urgent care reports/EKG's, snf records)? Report findings @ -No old charts were reviewed Differential Diagnosis (chest pain, altered mental status, abdominal pain women, abdominal pain men, vaginal bleeding, weakness, fever, dyspnea, syncope, headache, dizziness, GI bleed, back pain, seizure, CVA, palpatations, mental health, musculoskeletal)? @ -Differential includes rib fracture, rib contusion, pneumothorax, not an all- inclusive list EKG interpreted by me (3pts min.). @ -As above X-rays interpreted by me (1pt min.). @ -Rib x-ray with PA chest x-ray shows no acute osseous pathology. Overall the lungs are clear and the cardiac silhouette is normal in size CT interpreted by me (1pt min.). @ -None done U/S interpreted by me (1pt. min.). @ -None done What testing was considered but not performed or refused? (CT, X-rays, U/S, labs)? Why? @ -None What meds were considered but not given or refused? Why? @ -None Did you discuss the management of the patient with other professionals (professionals i.e. , PA, PUBLIC TRANSIT TROLLEY DRIVER, lab, RT, psych nurse, social services specialist, outpatient surgery rn, teacher, photographic intelligence officer, medical case manager)? Give summary @ -No Was smoking cessation discussed for >3mins.? @ -No Was critical care preformed (if so, how long)? @ -No Were there social determinants of health that impacted care today? How? (Homelessness, low income, unemployed, alcoholism, drug addiction, transportation, low edu. Level, literacy, decrease access to med. care, usp, rehab)? @ -No Was there de-escalation of care discussed even if they declined (Discuss DNR or withdrawal of care, Hospice)? DNR status @ -No What co-morbidities impacted this encounter? (DM, HTN, Smoking, COPD, CAD, Cancer, CVA, ARF, Chemo, Hep., AIDS, mental health diagnosis, sleep apnea, morbid obesity)? @ -None Was patient admitted / discharged? Hospital course, mention meds given and route, prescriptions, significant lab abnormalities, going to OR and other pertinent info. @ -24-year-old male presenting chief complaint of left-sided rib pain after being hit during boxing today. Workup initiated by triage. Patient is later placed in a room and evaluated by myself. Heart and lungs are clear to auscultation he does have tenderness to the left side of the chest. X-ray shows no rib fracture or pneumothorax. Patient is educated on today's findings. He is treated with lidocaine patch and Toradol. Educated on supportive management at home. Follow-up with PCP. Report back to ER with any new or worsening symptoms. Discussed return parameters and answered all questions. Patient conveyed verbal understanding and agreed to the plan. I discussed this case in detail with my attending Dr. Patterson Undiagnosed new problem with uncertain prognosis? @ -No Drug Therapy requiring intensive monitoring for toxicity (Heparin, Nitro, Insulin, Cardizem)? @ -No Were any procedures done? @ -No Diagnosis/symptom? @ -Rib contusion Acute, or Chronic, or Acute on Chronic? @ -Acute Uncomplicated (without systemic symptoms) or Complicated (systemic symptoms)? @ -Uncomplicated Side effects of treatment? @ -No Exacerbation, Progression, or Severe Exacerbation? @ -No Poses a threat to life or bodily function? How? (Chest pain, [place], [place], pneumonia, PE, COPD, DKA, ARF, appy, cholecystitis, CVA, Diverticulitis, Homicidal, Suicidal, threat to staff... and all critical care pts) @ -Low likelihood (Sourav Sams) Disposition <Kevin Desai - Last Filed: 12/19/24 18:50> Is patient prescribed a controlled substance at d/c from ED?: No Time of Disposition: 20:29 <Sourav Sams - Last Filed: 12/19/24 20:43> Clinical Impression: Rib contusion Disposition: HOME SELF-CARE Condition: Good Instructions (If sedation given, give patient instructions): Rib Contusion (ED) Additional Instructions: Follow-up with PCP. Report back to ER with any new or worsening symptoms. Use the incentive spirometer 10 times per hour to help prevent pneumonia. Prescriptions: Lidocaine 5% Patch [Lidoderm 5% Patch] 1 patch TOPICAL DAILY PRN #30 patch PRN Reason: Pain Referrals: None,Stated [Primary Care Provider] - 1-2 days Forms: Area PCPs
[2024-12-19 19:41] VITALS: RESP 18; TEMP 98.8
[2024-12-19] MEDS: KETOROLAC 15 MG/ML 1 ML VIAL IM STA (19:56)
--- NOTE | 2024-12-19 20:06 | XR ---
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 FINDINGS: The ribs have a normal appearance. No evidence of fracture. Overall, the lungs are clear. The cardiac silhouette is normal in size. The remaining osseous structures are intact. IMPRESSION: No acute osseous pathology. [facility], , 12/19/2024 8:03 PM
[2024-12-19] MEDS: LIDOCAINE 4% PATCH TOPICAL ONE (20:11)
[2024-12-19 20:32] VITALS: BP 124/80; PULSE 94
== END 2024-12-19 20:44 | disposition home or self-care (01) ==
LOC: EC 18:40
DX: S20.219A Contusion of unspecified front wall of thorax, initial encounter (principal); F17.290 Nicotine dependence, other tobacco product, uncomplicated; W50.0XXA Accidental hit or strike by another person, initial encounter; Y93.71 Activity, boxing
CPT/HCPCS: 71101; 99283; 96372; J1885

== ENCOUNTER 2025-01-31 22:39 | Emergency (ER) | payer OTHER ==
[2025-01-31 22:49] VITALS: BP 140/92; PULSE 100; RESP 18; TEMP 98.4
--- NOTE | 2025-01-31 23:09 | ED ---
General Adult HPI - General Chief complaint: Recheck/Abnormal Lab/Rx Stated complaint: bruised ribs Time Seen by Provider: 01/31/25 22:45 Source: patient, RN notes reviewed Mode of arrival: ambulatory Limitations: no limitations - History of Present Illness Initial comments: 24-year-old male presents emergency department with chief complaint of left-side d rib pain. This is a recurrent ongoing issue. Patient no new injuries. He states that he twisted wrong and fell like he injured his ribs again. He denies any abdominal pain denies any associated symptoms. - Related Data Previous Rx's Medication Instructions Recorded Divalproex ER [Depakote ER] 1,000 mg PO HS 30 Days #60 tab 01/09/25 Haloperidol Decanoate [Haldol D] 100 mg IM QMONTHLY 30 Days #1 each 01/09/25 Lidocaine 4% Patch 1 patch TOPICAL DAILY 30 Days #30 01/09/25 patch Nicotine 14Mg/24Hr Patch [Habitrol] 1 patch TRANSDERM DAILY patch 01/09/25 haloperidoL [Haldol] 10 mg PO HS 30 Days #60 tab 01/09/25 metFORMIN HCL [Glucophage] 500 mg PO BID-W/MEALS 30 Days #60 01/09/25 tab traZODone HCL [Desyrel] 50 mg PO HS 30 Days #30 tab 01/09/25 Allergies Allergy/AdvReac Type Severity Reaction Status Date / Time No Known Allergies Allergy Verified 01/31/25 22:49 Review of Systems ROS Statement: Those systems with pertinent positive or pertinent negative responses have been documented in the HPI. ROS Other: All systems not noted in ROS Statement are negative. Past Medical History Past Medical History: No Reported History History of Any Multi-Drug Resistant Organisms: None Reported Past Surgical History: Orthopedic Surgery Additional Past Surgical History / Comment(s): oral surgery, Past Anesthesia/Blood Transfusion Reactions: No Reported Reaction Past Psychological History: Anxiety, Depression, PTSD, Schizophrenia Smoking Status: Current every day smoker, Vaper Past Alcohol Use History: None Reported Past Drug Use History: Marijuana - Past Family History Father Family Medical History: Hyperlipidemia Family Family Medical History: No Reported History General Exam Limitations: no limitations General appearance: alert, in no apparent distress Head exam: Present: atraumatic, normocephalic, normal inspection Eye exam: Present: normal appearance, PERRL, EOMI. Absent: scleral icterus, conjunctival injection, periorbital swelling ENT exam: Present: normal exam, normal oropharynx, mucous membranes moist Neck exam: Present: normal inspection, full ROM. Absent: tenderness, meningismus, lymphadenopathy Respiratory exam: Present: normal lung sounds bilaterally, chest wall tenderness. Absent: respiratory distress, wheezes, rales, rhonchi, stridor Cardiovascular Exam: Present: regular rate, normal rhythm, normal heart sounds. Absent: systolic murmur, diastolic murmur, rubs, gallop, clicks Course Vital Signs 01/31/25 22:46 Temperature 98.4 F Pulse Rate 100 Respiratory 18 Rate Blood Pressure 140/92 O2 Sat by Pulse 100 Oximetry Medical Decision Making - Medical Decision Making Was pt. sent in by a medical professional or institution (, PA, DATA STORAGE SPECIALIST, urgent care, hospital, or half-way...) When possible be specific @ -No Did you speak to anyone other than the patient for history (EMS, parent, family, police, friend...)? What history was obtained from this source @ -No Did you review nursing and triage notes (agree or disagree)? Why? @ -I reviewed and agree with nursing and triage notes Were old charts reviewed (outside hosp., previous admission, EMS record, old EKG, old radiological studies, urgent care reports/EKG's, half-way records)? Report findings @ -No old charts were reviewed Differential Diagnosis (chest pain, altered mental status, abdominal pain women, abdominal pain men, vaginal bleeding, weakness, fever, dyspnea, syncope, headache, dizziness, GI bleed, back pain, seizure, CVA, palpatations, mental health, musculoskeletal)? @ -Rib fracture rib contusion chest wall pain EKG interpreted by me (3pts min.). @ -None X-rays interpreted by me (1pt min.). @ -None done CT interpreted by me (1pt min.). @ -None done U/S interpreted by me (1pt. min.). @ -None done What testing was considered but not performed or refused? (CT, X-rays, U/S, labs)? Why? @ -X-ray, CT patient had no new injury this is an ongoing chronic issue. What meds were considered but not given or refused? Why? @ -None Did you discuss the management of the patient with other professionals (professionals i.e. , PA, DATA STORAGE SPECIALIST, lab, RT, psych nurse, bilingual social worker, tandem mill roller, teacher, credit risk review officer, case consultant)? Give summary @ -No Was smoking cessation discussed for >3mins.? @ -No Was critical care preformed (if so, how long)? @ -No Were there social determinants of health that impacted care today? How? (Homelessness, low income, unemployed, alcoholism, drug addiction, transportation, low edu. Level, literacy, decrease access to med. care, fdc, rehab)? @ -No Was there de-escalation of care discussed even if they declined (Discuss DNR or withdrawal of care, Hospice)? DNR status @ -No What co-morbidities impacted this encounter? (DM, HTN, Smoking, COPD, CAD, Cancer, CVA, ARF, Chemo, Hep., AIDS, mental health diagnosis, sleep apnea, morbid obesity)? @ -None Was patient admitted / discharged? Hospital course, mention meds given and route, prescriptions, significant lab abnormalities, going to OR and other pertinent info. @ -Discharge patient provided lidocaine patch, acetaminophen. Patient states this is up with pain patient discharged in stable condition. Undiagnosed new problem with uncertain prognosis? @ -No Drug Therapy requiring intensive monitoring for toxicity (Heparin, Nitro, Insulin, Cardizem)? @ -No Were any procedures done? @ -No Diagnosis/symptom? @ -Rib pain Acute, or Chronic, or Acute on Chronic? @ -Acute Uncomplicated (without systemic symptoms) or Complicated (systemic symptoms)? @ -uncomplicated Side effects of treatment? @ -No Exacerbation, Progression, or Severe Exacerbation? @ -No Poses a threat to life or bodily function? How? (Chest pain, [place], [place], pneumonia, PE, COPD, DKA, ARF, appy, cholecystitis, CVA, Diverticulitis, Homicidal, Suicidal, threat to staff... and all critical care pts) @ -No Disposition Clinical Impression: Rib pain Disposition: HOME SELF-CARE Condition: Stable Instructions (If sedation given, give patient instructions): Chest Pain (ED) Additional Instructions: Please return to the Emergency Department if symptoms worsen or any other concerns. Is patient prescribed a controlled substance at d/c from ED?: No Referrals: None,Stated [Primary Care Provider] - 1-2 days Time of Disposition: 23:09
[2025-01-31] MEDS: ACETAMINOPHEN TAB 325 MG TAB PO STA (23:18)
[2025-01-31] MEDS: LIDOCAINE 4% PATCH TOPICAL ONE (23:18)
== END 2025-01-31 23:24 | disposition home or self-care (01) ==
LOC: EC 22:39
DX: R07.81 Pleurodynia (principal); F17.290 Nicotine dependence, other tobacco product, uncomplicated
CPT/HCPCS: 99283

== ENCOUNTER 2025-02-01 17:36 | Emergency (ER) | payer OTHER ==
--- NOTE | 2025-02-01 18:31 | ED ---
General Adult HPI - General Chief complaint: Psychiatric Symptoms Stated complaint: mental health Time Seen by Provider: 02/01/25 18:13 Source: patient Mode of arrival: ambulatory Limitations: no limitations - History of Present Illness Initial comments: Dictation was produced using [employer] dictation software. please excuse any grammatical, word or spelling errors. Chief Complaint: 24-year-old male requesting 3 W. admission History of Present Illness: Patient 24-year-old male presents to the emergency department requesting 3 W. admission patient states he has a history of schizophrenia. Does not state he is suicidal but does have some homicidal feelings. Patient not a reliable historian is rather uncooperative. Unable to obtain ROS due to mental status - Related Data Previous Rx's Medication Instructions Recorded Divalproex ER [Depakote ER] 1,000 mg PO HS 30 Days #60 tab 01/09/25 Haloperidol Decanoate [Haldol D] 100 mg IM QMONTHLY 30 Days #1 each 01/09/25 Lidocaine 4% Patch 1 patch TOPICAL DAILY 30 Days #30 01/09/25 patch Nicotine 14Mg/24Hr Patch [Habitrol] 1 patch TRANSDERM DAILY patch 01/09/25 haloperidoL [Haldol] 10 mg PO HS 30 Days #60 tab 01/09/25 metFORMIN HCL [Glucophage] 500 mg PO BID-W/MEALS 30 Days #60 01/09/25 tab traZODone HCL [Desyrel] 50 mg PO HS 30 Days #30 tab 01/09/25 Allergies Allergy/AdvReac Type Severity Reaction Status Date / Time No Known Allergies Allergy Verified 01/31/25 22:49 Review of Systems ROS Statement: Those systems with pertinent positive or pertinent negative responses have been documented in the HPI. ROS Other: All systems not noted in ROS Statement are negative. Past Medical History Past Medical History: No Reported History History of Any Multi-Drug Resistant Organisms: None Reported Past Surgical History: Orthopedic Surgery Additional Past Surgical History / Comment(s): oral surgery, Past Anesthesia/Blood Transfusion Reactions: No Reported Reaction Past Psychological History: Anxiety, Depression, PTSD, Schizophrenia Smoking Status: Current every day smoker, Vaper Past Alcohol Use History: None Reported Past Drug Use History: Marijuana - Past Family History Father Family Medical History: Hyperlipidemia Family Family Medical History: No Reported History General Exam - General Exam Comments Initial Comments: General: Well-appearing, nontoxic, no acute distress. Head: Normocephalic, atraumatic Eyes: PERRLA, EOMI ENT: Airway patent Chest: Nonlabored breathing Skin: No visual rash, normal skin tone Neuro: Alert and oriented 3 Musculoskeletal: No gross abnormalities Psych: Agitated, paranoid Limitations: no limitations Course Vital Signs 02/01/25 17:44 Temperature 97.9 F Pulse Rate 90 Respiratory 20 Rate Blood Pressure 148/92 O2 Sat by Pulse 100 Oximetry Medical Decision Making - Medical Decision Making Was pt. sent in by a medical professional or institution (, PA, GREENHOUSE OR NURSERY TRANSPLANTER, urgent care, hospital, or alf...) When possible be specific @ -No Did you speak to anyone other than the patient for history (EMS, parent, family, police, friend...)? What history was obtained from this source @ -No Did you review nursing and triage notes (agree or disagree)? Why? @ -I reviewed and agree with nursing and triage notes Were old charts reviewed (outside hosp., previous admission, EMS record, old EKG, old radiological studies, urgent care reports/EKG's, alf records)? Report findings @ -No old charts were reviewed Differential Diagnosis (chest pain, altered mental status, abdominal pain women, abdominal pain men, vaginal bleeding, musculoskeletal, weakness, fever, dyspnea, syncope, headache, dizziness, GI bleed, back pain, seizure, CVA, palpatations, mental health)? @ -Differential Mental Health: Depression, anxiety, bipolar, psychosis, schizophrenia, borderline personality, situational depression, adjustment disorder, behavioral disorder, brain tumor, malingering, substance abuse, encephalopathy, medication reaction, dementia, hypothyroidism, degenerative neurologic disorder, lupus.... This is not meant to be all-inclusive list EKG interpreted by me (3pts min.). @ -None done X-rays interpreted by me (1pt min.). @ -None done CT interpreted by me (1pt min.). @ -None done U/S interpreted by me (1pt. min.). @ -None done What testing was considered but not performed or refused? (CT, X-rays, U/S, labs)? Why? @ -None What meds were considered but not given or refused? Why? @ -None Was smoking cessation discussed for >3mins.? @ -No Were there social determinants of health that impacted care today? How? (Homelessness, low income, unemployed, alcoholism, drug addiction, transportation, low edu. Level, literacy, decrease access to med. care, correction, rehab)? @ -No Was there de-escalation of care discussed even if they declined (Discuss DNR or withdrawal of care, Hospice)? DNR status @ -No What co-morbidities impacted this encounter? (DM, HTN, Smoking, COPD, CAD, Cancer, CVA, ARF, Chemo, Hep., AIDS, mental health diagnosis, sleep apnea, morbid obesity)? @ -None Was patient admitted / discharged? Hospital course, mention meds given and route, prescriptions, significant lab abnormalities, going to OR and other pertinent info. @ -24-year-old male with history of schizophrenia presents to the ER requesting three-way's admission. Patient agitated and paranoid at the bedside. Vital signs stable. Physical examination is otherwise benign. Patient has no medical complaints. Patient medically cleared for EPS evaluation. Did you discuss the management of the patient with other professionals (professionals i.e. , PA, GREENHOUSE OR NURSERY TRANSPLANTER, lab, RT, psych nurse, director social welfare, cable splicer helper, teacher, ict help desk officer, case checker)? Give summary @ -Patient arrived by EPS recommended discharge. They did request that patient received 1 dose of trazodone and Lidoderm patch. Was critical care preformed (if so, how long)? @ -No Undiagnosed new problem with uncertain prognosis? @ -No Drug Therapy requiring intensive monitoring for toxicity (Heparin, Nitro, Insulin, Cardizem)? @ -No Were any procedures done? @ -No Diagnosis/symptom? Acute, or Chronic, or Acute on Chronic? Uncomplicated (without systemic symptoms) or Complicated (systemic symptoms)? @ -Psychiatric evaluation Side effects of treatment? @ -No Exacerbation, Progression, or Severe Exacerbation? @ -No Poses a threat to life or bodily function? How? (Chest pain, [place], [place], pneumonia, PE, COPD, DKA, ARF, appy, cholecystitis, CVA, Diverticulitis, Homicidal, Suicidal, threat to staff... and all critical care pts) @ -yes - Lab Data Lab Results 02/01/25 Range/Units 18:20 Urine Opiates Screen Not Detected (NotDetected) Ur Oxycodone Screen Not Detected (NotDetected) Urine Methadone Screen Not Detected (NotDetected) Ur Barbiturates Screen Not Detected (NotDetected) U Tricyclic Antidepress Not Detected (NotDetected) Ur Phencyclidine Scrn Not Detected (NotDetected) Ur Amphetamines Screen Not Detected (NotDetected) U Methamphetamines Scrn Not Detected (NotDetected) U Benzodiazepines Scrn Not Detected (NotDetected) Urine Cocaine Screen Not Detected (NotDetected) U Marijuana (THC) Screen Detected H (NotDetected) Disposition Clinical Impression: Chronic schizophrenia Disposition: HOME SELF-CARE Condition: Good Instructions (If sedation given, give patient instructions): Medical Clearance for Psychiatric Care (ED) Is patient prescribed a controlled substance at d/c from ED?: No Referrals: None,Stated [Primary Care Provider] - 1-2 days Time of Disposition: 19:17
[2025-02-01 19:01] LABS: Amphetamine Screen,Urine Not Detected (NotDetected); Barbiturate Screen,Urine Not Detected (NotDetected); Benzodiazepines Screen,Urine Not Detected (NotDetected); Cocaine Screen,Urine Not Detected (NotDetected); Methadone Screen, Urine Not Detected (NotDetected); Opiate Screen,Urine Not Detected (NotDetected); Oxycodone Screen, Urine Not Detected (NotDetected); Phencyclidine Screen,Urine Not Detected (NotDetected); Tricyclic Antidepressant,Urine Not Detected (NotDetected); Urn Cannabinoid Scrn Detected (NotDetected)
[2025-02-01 19:17] LABS: Influenza A Not Detected (Not Detectd); Influenza B Not Detected (Not Detectd); RSV Not Detected (Not Detectd)
[2025-02-01] MEDS: traZODone HCL 50 MG TAB PO ONE (19:59)
[2025-02-01] MEDS: LIDOCAINE 4% PATCH TOPICAL ONE (20:00)
[2025-02-01 20:09] VITALS: BP 135/85; PULSE 88; RESP 18; TEMP 98.4
== END 2025-02-01 20:09 | disposition home or self-care (01) ==
LOC: EC 17:36
DX: F20.9 Schizophrenia, unspecified (principal); F17.290 Nicotine dependence, other tobacco product, uncomplicated
CPT/HCPCS: 80306; 82075; 87636; 99285

== ENCOUNTER 2025-03-10 20:23 | Emergency (ER) | payer OTHER ==
--- NOTE | 2025-03-10 22:10 | ED ---
Psych HPI - General Chief Complaint: Psychiatric Symptoms Stated Complaint: AMS,Mental Health Time Seen by Provider: 03/10/25 20:41 Source: patient, RN notes reviewed, Caregiver Mode of arrival: ambulatory - History of Present Illness Initial Comments: 25 year old male with history of bipolar and schizophrenia presents emergency department with petition from intermediate. workers at the intermediate reported that the patient was not answering questions appropriately and was staring at wall. Patient is denying suicidal, homicidal ideations, auditory visual hallucinations. He states that he feels overall well. - Related Data Previous Rx's Medication Instructions Recorded Divalproex ER [Depakote ER] 1,000 mg PO HS 30 Days #60 tab 01/09/25 Haloperidol Decanoate [Haldol D] 100 mg IM QMONTHLY 30 Days #1 each 01/09/25 Lidocaine 4% Patch 1 patch TOPICAL DAILY 30 Days #30 01/09/25 patch Nicotine 14Mg/24Hr Patch [Habitrol] 1 patch TRANSDERM DAILY patch 01/09/25 haloperidoL [Haldol] 10 mg PO HS 30 Days #60 tab 01/09/25 metFORMIN HCL [Glucophage] 500 mg PO BID-W/MEALS 30 Days #60 01/09/25 tab traZODone HCL [Desyrel] 50 mg PO HS 30 Days #30 tab 01/09/25 Allergies Allergy/AdvReac Type Severity Reaction Status Date / Time No Known Allergies Allergy Verified 03/10/25 20:40 Review of Systems ROS Statement: Those systems with pertinent positive or pertinent negative responses have been documented in the HPI. ROS Other: All systems not noted in ROS Statement are negative. Past Medical History Past Medical History: No Reported History History of Any Multi-Drug Resistant Organisms: None Reported Past Surgical History: Orthopedic Surgery Additional Past Surgical History / Comment(s): oral surgery, Past Anesthesia/Blood Transfusion Reactions: No Reported Reaction Past Psychological History: Anxiety, Depression, PTSD, Schizophrenia Smoking Status: Current every day smoker, Vaper Past Alcohol Use History: None Reported Past Drug Use History: Marijuana - Past Family History Father Family Medical History: Hyperlipidemia Family Family Medical History: No Reported History General Exam Limitations: no limitations Eye exam: Present: normal appearance, PERRL, EOMI. Absent: scleral icterus, con junctival injection, periorbital swelling Neck exam: Present: normal inspection. Absent: tenderness, meningismus, lymphadenopathy Respiratory exam: Present: normal lung sounds bilaterally. Absent: respiratory distress, wheezes, rales, rhonchi, stridor Cardiovascular Exam: Present: regular rate, normal rhythm, normal heart sounds. Absent: systolic murmur, diastolic murmur, rubs, gallop, clicks GI/Abdominal exam: Present: soft, normal bowel sounds. Absent: distended, tenderness, guarding, rebound, rigid Extremities exam: Present: normal inspection, full ROM, normal capillary refill. Absent: tenderness, pedal edema, joint swelling, calf tenderness Psychiatric exam: Present: flat affect. Absent: normal affect, normal mood Course Vital Signs 03/10/25 03/10/25 20:35 22:33 Temperature 97.5 F L 98 F Pulse Rate 98 89 Respiratory 16 17 Rate Blood Pressure 149/96 153/94 O2 Sat by Pulse 100 100 Oximetry Medical Decision Making - Medical Decision Making Was pt. sent in by a medical professional or institution (, PA, CONTROL PANEL OPERATOR, urgent care, hospital, or shelter...) When possible be specific @ -No Did you speak to anyone other than the patient for history (EMS, parent, family, police, friend...)? What history was obtained from this source @ -No Did you review nursing and triage notes (agree or disagree)? Why? @ -I reviewed and agree with nursing and triage notes Were old charts reviewed (outside hosp., previous admission, EMS record, old EKG, old radiological studies, urgent care reports/EKG's, shelter records)? Report findings @ -No old charts were reviewed Differential Diagnosis (chest pain, altered mental status, abdominal pain women, abdominal pain men, vaginal bleeding, weakness, fever, dyspnea, syncope, headache, dizziness, GI bleed, back pain, seizure, CVA, palpatations, mental health, musculoskeletal)? @ -Differential Mental Health Depression, anxiety, bipolar, psychosis, schizophrenia, borderline personality, situational depression, adjustment disorder, behavioral disorder, brain tumor, malingering, substance abuse, encephalopathy, medication reaction, dementia, hypothyroidism, degenerative neurologic disorder, lupus.... This is not meant to be all-inclusive list EKG interpreted by me (3pts min.). @ -As above X-rays interpreted by me (1pt min.). @ -None done CT interpreted by me (1pt min.). @ -None done U/S interpreted by me (1pt. min.). @ -None done What testing was considered but not performed or refused? (CT, X-rays, U/S, labs)? Why? @ -None What meds were considered but not given or refused? Why? @ -None Did you discuss the management of the patient with other professionals (professionals i.e. Dr., PA, CONTROL PANEL OPERATOR, lab, RT, psych nurse, social problems specialist, civil lawyer, teacher, strategic debriefing officer, case therapist)? Give summary @ -Spoke with EPS nurse who has recommended the patient be discharged safety plan Was smoking cessation discussed for >3mins.? @ -No Was critical care preformed (if so, how long)? @ -No Were there social determinants of health that impacted care today? How? (Homelessness, low income, unemployed, alcoholism, drug addiction, transportation, low edu. Level, literacy, decrease access to med. care, detention, rehab)? @ -No Was there de-escalation of care discussed even if they declined (Discuss DNR or withdrawal of care, Hospice)? DNR status @ -No What co-morbidities impacted this encounter? (DM, HTN, Smoking, COPD, CAD, Cancer, CVA, ARF, Chemo, Hep., AIDS, mental health diagnosis, sleep apnea, morbid obesity)? @ -None Was patient admitted / discharged? Hospital course, mention meds given and route, prescriptions, significant lab abnormalities, going to OR and other pertinent info. @ -Discharge. 24-year-old male presenting with mental health petition. Patient has extremely flat affect. Patient is medically cleared for EPS evaluation. EPS evaluation has created safety plan with the patient will follow-up outpatient. Case discussed with Dr. Patterson. Undiagnosed new problem with uncertain prognosis? @ -No Drug Therapy requiring intensive monitoring for toxicity (Heparin, Nitro, Insulin, Cardizem)? @ -No Were any procedures done? @ -No Diagnosis/symptom? @ -Schizophrenia Acute, or Chronic, or Acute on Chronic? @ -acute Uncomplicated (without systemic symptoms) or Complicated (systemic symptoms)? @ -Uncomplicated Side effects of treatment? @ -No Exacerbation, Progression, or Severe Exacerbation? @ -No Poses a threat to life or bodily function? How? (Chest pain, [place], [place], pneumonia, PE, COPD, DKA, ARF, appy, cholecystitis, CVA, Diverticulitis, Homicidal, Suicidal, threat to staff... and all critical care pts) @ -No Disposition Clinical Impression: Schizophrenia Disposition: HOME SELF-CARE Condition: Stable Instructions (If sedation given, give patient instructions): Schizophrenia (ED) Additional Instructions: Please return to the Emergency Department if symptoms worsen or any other concerns. Is patient prescribed a controlled substance at d/c from ED?: No Referrals: None,Stated [Primary Care Provider] - 1-2 days Time of Disposition: 22:10
[2025-03-10] MEDS: HALOPERIDOL DECANOATE 100 MG/ML 1 ML VIAL IM STA (22:33)
[2025-03-10 22:35] VITALS: BP 153/94; PULSE 89; RESP 17; TEMP 98
== END 2025-03-10 23:01 | disposition home or self-care (01) ==
LOC: EC 20:23
DX: F20.9 Schizophrenia, unspecified (principal); F31.9 Bipolar disorder, unspecified; F17.290 Nicotine dependence, other tobacco product, uncomplicated
CPT/HCPCS: 82075; 99284

== ENCOUNTER 2025-03-11 18:10 | Inpatient (IN) | payer MEDICAID, OTHER ==
--- NOTE | 2025-03-11 18:27 | ED ---
General Adult HPI - General Chief complaint: Altered Mental Status Stated complaint: Mental health eval Time Seen by Provider: 03/11/25 18:15 Source: patient, EMS, RN notes reviewed, old records reviewed Mode of arrival: ambulatory Limitations: no limitations, altered mental status - History of Present Illness Initial comments: This is a 25-year-old male who has a past medical history significant for mental health but no specific diagnosis has been given by the sister or the patient. Patient does not want to talk to me but according to the sister the patient has been seeing things and hearing things and acting very bizarre and she states he just started Haldol recently. Patient was in the ER yesterday. But no further history is available patient refuses to speak to me about his situation. - Related Data Home Medications Medication Instructions Recorded Confirmed Haloperidol Decanoate [Haldol D] 100 mg IM Q28D 03/11/25 03/11/25 haloperidoL [Haldol] 5 mg PO BID 03/11/25 03/11/25 Allergies Allergy/AdvReac Type Severity Reaction Status Date / Time No Known Allergies Allergy Verified 03/11/25 18:33 Review of Systems ROS Statement: Those systems with pertinent positive or pertinent negative responses have been documented in the HPI. ROS Other: All systems not noted in ROS Statement are negative. Past Medical History Past Medical History: No Reported History History of Any Multi-Drug Resistant Organisms: None Reported Past Surgical History: Orthopedic Surgery Additional Past Surgical History / Comment(s): oral surgery, Past Anesthesia/Blood Transfusion Reactions: No Reported Reaction Past Psychological History: Anxiety, Depression, PTSD, Schizophrenia Smoking Status: Current every day smoker, Vaper Past Alcohol Use History: None Reported Past Drug Use History: Marijuana - Past Family History Father Family Medical History: Hyperlipidemia Family Family Medical History: No Reported History General Exam - General Exam Comments Initial Comments: GENERAL: Patient is well-developed and well-nourished. Patient is nontoxic and well- hydrated and is in no acute distress. ENT: Neck is soft and supple. No significant lymphadenopathy is noted. Oropharynx is clear. Moist mucous membranes. Neck has full range of motion without eliciting any pain. EYES: The sclera were anicteric and conjunctiva were pink and moist. Extraocular movements were intact and pupils were equal round and reactive to light. Eyelids were unremarkable. SKIN: Skin is clear with no lesions or rashes and otherwise unremarkable. NEUROLOGIC: Patient is alert and oriented x3. Cranial nerves II through XII are grossly intact. Motor and sensory are also intact. Normal speech, volume and content. Symmetrical smile. MUSCULOSKELETAL: Normal extremities with adequate strength and full range of motion. LYMPHATICS: No significant lymphadenopathy is noted PSYCHIATRIC: Patient is uncooperative he does not want anybody touching him he asked me why I am getting his fingerprints even though I was clearly not getting his fingerprints he is acting very bizarre in the room and very agitated Limitations: no limitations, altered mental status Course Vital Signs 03/11/25 18:14 Temperature 99.8 F H Pulse Rate 78 Respiratory 18 Rate Blood Pressure 134/94 O2 Sat by Pulse 100 Oximetry Medical Decision Making - Medical Decision Making Was pt. sent in by a medical professional or institution (, PA, MANAGER PHYSICAL, urgent care, hospital, or penitentiary...) When possible be specific @ -No Did you speak to anyone other than the patient for history (EMS, parent, family, police, friend...)? What history was obtained from this source @ -No Did you review nursing and triage notes (agree or disagree)? Why? @ -I reviewed and agree with nursing and triage notes Were old charts reviewed (outside hosp., previous admission, EMS record, old EKG, old radiological studies, urgent care reports/EKG's, penitentiary records)? Report findings @ -No old charts were reviewed Differential Diagnosis? @ -Differential Mental Health Depression, anxiety, bipolar, psychosis, schizophrenia, borderline personality, situational depression, adjustment disorder, behavioral disorder, brain tumor, malingering, substance abuse, encephalopathy, medication reaction, dementia, hypothyroidism, degenerative neurologic disorder, lupus.... This is not meant to be all-inclusive list EKG interpreted by me (3pts min.). @ -As above X-rays interpreted by me (1pt min.). @ -None done CT interpreted by me (1pt min.). @ -None done U/S interpreted by me (1pt. min.). @ -None done What testing was considered but not performed or refused? (CT, X-rays, U/S, labs)? Why? @ -None What meds were considered but not given or refused? Why? @ -None Did you discuss the management of the patient with other professionals (professionals i.e. , PA, MANAGER PHYSICAL, lab, RT, psych nurse, health and social care teacher, business lawyer, teacher, structural engineering drafting officer, medical case manager)? Give summary @ -EPS evaluated the patient Was smoking cessation discussed for >3mins.? @ -No Was critical care preformed (if so, how long)? @ -No Were there social determinants of health that impacted care today? How? (Homelessness, low income, unemployed, alcoholism, drug addiction, transportation, low edu. Level, literacy, decrease access to med. care, usp, rehab)? @ -No Was there de-escalation of care discussed even if they declined (Discuss DNR or withdrawal of care, Hospice)? DNR status @ -No What co-morbidities impacted this encounter? (DM, HTN, Smoking, COPD, CAD, Cancer, CVA, ARF, Chemo, Hep., AIDS, mental health diagnosis, sleep apnea, morbid obesity)? @ -None Was patient admitted / discharged? Hospital course, mention meds given and route, prescriptions, significant lab abnormalities, going to OR and other pertinent info. @ -EPS evaluated the patient spoke with the psychiatrist and determined the patient need to be admitted. Patient will be admitted to the psychiatric unit. EPS stated that he admitted to her that the voices are telling to hurt somebody and he is afraid he might do so Undiagnosed new problem with uncertain prognosis? @ -No Drug Therapy requiring intensive monitoring for toxicity (Heparin, Nitro, Insulin, Cardizem)? @ -No Were any procedures done? @ -No Diagnosis/symptom? @ -Acute psychosis Acute, or Chronic, or Acute on Chronic? @ -Acute Uncomplicated (without systemic symptoms) or Complicated (systemic symptoms)? @ -Complicated Side effects of treatment? @ -No Exacerbation, Progression, or Severe Exacerbation? @ -No Poses a threat to life or bodily function? How? (Chest pain, [place], [place], pneumonia, PE, COPD, DKA, ARF, appy, cholecystitis, CVA, Diverticulitis, Homicidal, Suicidal, threat to staff... and all critical care pts) @ -Yes he could harm somebody because the voices are telling him to do so Disposition Clinical Impression: Psychosis Disposition: ADMITTED IP TO THIS HOSP Referrals: None,Stated [Primary Care Provider] - 1-2 days Time of Disposition: 20:02
[2025-03-11 20:36] LABS: Influenza A Not Detected (Not Detectd); Influenza B Not Detected (Not Detectd); RSV Not Detected (Not Detectd)
[2025-03-11] MEDS ORDERED: MAGNESIUM HYDROXIDE 2,400 MG/30 ML CUP PO PRN (21:52)
[2025-03-11] MEDS ORDERED: HALOPERIDOL LACTATE 5 MG/ML 1 ML VIAL IM PRN (21:53)
[2025-03-11] MEDS ORDERED: LORazepam 2 MG/ML INJ IM PRN (21:53)
[2025-03-11] MEDS: haloperidoL 5 MG TAB PO SCH (22:32)
[2025-03-11] MEDS: LORazepam 1 MG TAB PO PRN (23:51)
[2025-03-12] MEDS: NICOTINE 14MG/24HR PATCH TRANSDERM SCH (08:19)
[2025-03-12] MEDS: haloperidoL 5 MG TAB PO PRN (11:58)
[2025-03-12] MEDS ORDERED: traZODone HCL 100 MG TAB PO PRN (11:58)
--- NOTE | 2025-03-12 12:07 | P.HP ---
Psychiatric H&P - . H&P Date: 03/12/25 History & Physical: Allergies Allergy/AdvReac Type Severity Reaction Status Date / Time No Known Allergies Allergy Verified 03/11/25 18:33 Vital Signs Temp 98.0 F 03/12/25 09:00 Pulse 63 03/12/25 09:00 Resp 16 03/12/25 09:00 BP 130/84 03/12/25 09:00 Pulse Ox 99 03/12/25 09:00 FiO2 Intake & Output 03/11/25 03/12/25 03/12/25 18:59 06:59 18:59 Weight 68.039 kg 68.039 kg Laboratory Last Values Influenza Type A (PCR) Not Detected (Not Detectd) 03/11/25 19:46 Influenza Type B (PCR) Not Detected (Not Detectd) 03/11/25 19:46 RSV (PCR) Not Detected (Not Detectd) 03/11/25 19:46 SARS-CoV-2 (PCR) Not Detected (Not Detectd) 03/11/25 19:46 03/12/25 11:59 IDENTIFYING DATA: Patient is a 25-year-old -[place]og[place] male, homeless and on an DAR with an expiration date for 02/2026 HPI: Patient presented to the hospital with mental health concerns. Per EPS nursing note "Pt is not willing to speak to other staff, but is willing to speak to this RN. Pts sister Kim is present for assessment. Pt was seen in ER yesterday, 03/10/25 by this RN. Pt did express Hallucinations yesterday but denied that they were command in nature. Pts attitude and affect today have shifted in comparison to yesterdays visit with this RN. Pt states that his AH are now command in nature, telling him to hurt other people. Pt seems to be more agruementative with other staff members. Pt is denying SI, when asked about HI he is not directly answering the question but states he feels unsafe with himself. Pt states that his VH are hard to explain but they are "signs, like end of the world stuff". Pt does follow with the ACT at [facility]. Pt was last seen by on 02/26 and during that time he didn't make med changes but also didn't write any new prescriptions. [facility] just [facility], states he is smoking marijuana. Pt states that he drank a few sips of etoh a few days ago but not a daily drinker. Pt denies any other substane use. Pt last got his Haldol Dec IM on 02/05/25 but has not received any IM since then and did not write a new order. Pt is on a continuing DAR until 03/07/26. When RN walked out of the room to get him a sandwich he stepped in the crews and said, "shoot me" to other staff members. He stated that "he is going through my stuff for my fingerprints". BAT 0.00 per Mar, HAT MENDER. Asked to be documented" Patient seen today pacing the hallways wandering around, he had a salon customer experience specialist his forehead. He was seen talking to himself responding to internal stimuli. Gill Box Fixer attempted to speak with patient he initially appeared to be responsive however went to his room and began speaking bizarrely to health science writer. He asked health science writer if he had "false teeth" and states that he did not trust him, claims that he does not want to speak to health science writer today. He appears to be internally preoccupied, impulsive hostile at times. He refused to answer any questions at this time. Patient is currently on a mental health court order, he has been on Haldol D, 100 mg every 4 weeks last dose was given at [facility] on 02/05/2025. Patient was positive for THC on drug screen. His Depakote level was 79.5 on admission. PAST PSYCHIATRIC HISTORY: Patient has a history of schizophrenia, cannabis use disorder. Patient is currently on a active treatment order which expires on February 2026. Patient is currently on Haldol D 100 mg every 4 weeks, last dose was given on 02/05/2025. He has also tried in the past Prolixin, Abilify maintaina, sertraline, lithium, Invega Sustenna. Patient has had several inpatient hospitalizations. Patient sees Dr. swift with [facility], and has ACT team follow-up. Patient does have a previous history of suicide attempt via jumping off a bridge. PMH: as per ER note ALLERGIES: as per EMR SUBSTANCE USE HISTORY: Patient has history of cannabis use disorder, UDS positive for cannabis FAMILY PSYCHIATRIC/SUBSTANCE USE HISTORY: Patient's mother reportedly has bipolar disorder SOCIAL HISTORY: Patient was born and raised in [place]. He completed high school and is currently unemployed, living at a prison/homeless. History of [facility] for [facility]. [facility]. MENTAL STATUS EXAM: General Appearance: Patient appears to be stated age is alert, however largely uncooperative. Bizarre, responding to internal stimuli. Patient appears to have fair hygiene and grooming. Behavior: Patient bizarre, responding to internal stimuli, restless and pacing the hallway. Speech: Patient's speech is pressured, fluent Mood/Affect: Unable to assess Suicidality/Homicidality: Unable to assess Perceptions: Unable to assess Though content/process: There is evidence of paranoid delusions, disorganized thoughts, evasive Memory and concentration: Unable to assess Judgment and insight: Chronically poor/impulsive STRENGTHS/WEAKNESSES: strength is that patient is resilient, resourceful, on a court order. Weakness is that patient has poor judgment and is impulsive, displaying poor insight INTELLECT: Average IMPRESSIONS: schizophrenia Cannabis use disorder PLAN: -Patient is admitted under DAR, expires 02/2026 status to MHU for stabilization of psychiatric symptoms and safety. Patient has not signed adult voluntary form and medication consent and is placed in patient's chart. -Medications : decreaasing po Haldol to 3 mg at bid for psychosis. will give haldol D dose of 100 mg IM today to helep ensure compliance. Start trazodone 100 mg at prn bedtime for insomnia. -Ativan and Haldol PRN for agitation/aggression -Patient will be given sheet informing of the risks, benefits and side effects of the medication -Internal Medicine consult to perform medical evaluation and physical. -NRT -not needed as patient does not smoke -SW on board for discharge planning. Encourage patient to participate in groups to work on coping skills. 03/12/25 12:00 03/12/25 12:02
[2025-03-12] MEDS: HALOPERIDOL DECANOATE 100 MG/ML 1 ML VIAL IM STA (12:14)
[2025-03-12] MEDS: haloperidoL 1 MG TAB PO SCH (20:24)
[2025-03-13] MEDS: IBUPROFEN 600 MG TAB PO PRN (04:34)
--- NOTE | 2025-03-13 12:32 | P.PN ---
Progress Note - Text Progress Note Date: 03/13/25 Interval history: Patient was seen today for psychiatric follow-up. Patient was laying in the TV room watching television with others. He was agreed to speak to check writer salesperson today briefly. Patient appeared to be responding to internal stimuli, looking around the room, he continues to be somewhat bizarre in his mannerisms, continues to be fairly concrete. Appeared to have thought blocking. Denies any issues with his medications at this time. He did appear to be somewhat slow to respond and slow in his movements. He was not displaying any tremors at this time denied any acute dystonia or tremors. Claims that he slept fairly last night, received the injection yesterday. Has been going to some groups. Claims that he is still having anxiety. He is claiming that he is hearing voices, denies any visual hallucinations denies any suicidal homicidal ideations intent or plan. MENTAL STATUS EXAM: General Appearance: Patient appears to be stated age is alert, attempts to cooperate, bizarre, responding to internal stimuli. Patient appears to have fair hygiene and grooming. Behavior: Patient bizarre, responding to internal stimuli, slowed movements, no tremor Speech: Patient's speech is concrete, monotone Mood/Affect: Claims that his mood is fair, admits to anxiety, affect is constr icted Suicidality/Homicidality: Denies Perceptions: Claims that he is hearing voices, was vague about what they are saying, denies any visual hallucinations Though content/process: disorganized thoughts, not endorsing any paranoia. Fairly concrete poverty of content Memory and concentration: Alert and oriented x 3, follows directions Judgment and insight: Chronically poor/impulsive IMPRESSIONS: schizophrenia Cannabis use disorder PLAN: -Patient is admitted under DAR, expires 02/2026 status to MHU for stabilization of psychiatric symptoms and safety. Patient has not signed adult voluntary form and medication consent and is placed in patient's chart. -Medications : Discontinue po Haldol. Patient received haldol D 100 mg IM on 03/12, will be due for next dose in [id number] on 04/10. trazodone 100 mg at prn bedtime for insomnia. added cogentin 0.5 mg bid for eps reaction -Ativan and Haldol PRN for agitation/aggression -NRT -not needed as patient does not smoke -SW on board for discharge planning. Encourage patient to participate in groups to work on coping skills. patient is currently on a court order, hopeful for discharge in 2-3 days if patient is improving. he is currently homeless.
[2025-03-13] MEDS: BENZTROPINE MESYLATE 0.5 MG TAB PO SCH (12:53)
[2025-03-13] MEDS: ACETAMINOPHEN TAB 325 MG TAB PO PRN (20:30)
[2025-03-13] MEDS ORDERED: ONDANSETRON 4 MG/2 ML VIAL IVP PRN (21:57)
[2025-03-13] MEDS ORDERED: DEXTROSE 50% SYRINGE 50 ML IVP PRN ×2 (23:20)
[2025-03-13 23:47] LABS: Influenza A Not Detected (Not Detectd); Influenza B Not Detected (Not Detectd); RSV Not Detected (Not Detectd)
--- NOTE | 2025-03-14 00:55 | P.MDCNMH ---
<Alfreda Maharaj - Last Filed: 03/13/25 23:21> History of Present Illness H&P Date: 03/13/25 Patient is a 25 year old male with no significant past medical history admitted to this hospital for schizophrenia and cannabis use disorder, is seen today in medical consultation for medical management. Patient initially presented with hallucinations, stated that his AH were more command in nature and telling him to hurt other people. The patient's sister reported that the patient had been seeing things and hearing things and acting very bizarre. She had also mentioned that the patient was still started on Haldol but recently. On this admission he is being treated with trazodone, Ativan, Haldol and Benztropine. Patient reports being constipated when he is in group home and that he has to strain during bowel movements. He also mentions that he feels better and notices improvement in abdominal pain after having bowel movement. Currently he endorses pain in the left upper quadrant. At the time of this interview, patient denies fever, chills, shortness of breath, cough, chest pain, palpitations, nausea, vomiting, hematuria, dysuria, hematochezia, melena, headache, slurred speech, numbness, tingling, dizziness, lightheadedness, blurred vision, double vision. Vitals T 99.8 F, MI 103 bpm, RR 18, BP 132/89, oxygen saturation 97% on room air Respiratory panel is negative Review of systems: Pertinent positives and negatives as discussed in HPI, a complete review of systems was performed and all other systems are negative. Physical examination: Vital signs reviewed General: nontoxic, no distress, appears at stated age Derm: warm, dry, intact Head: atraumatic, normocephalic, symmetric Eyes: EOMI, anicteric sclera Mouth: no lip lesion, mucus membranes moist Cardiovascular: S1 S2 reg, no murmur Lungs: CTA bilateral, no rhonchi, no rales, no accessory muscle use Abdominal: soft, tender to palpation in left upper quadrant Extremities: No cyanosis, clubbing, or pedal edema. Neuro: Alert, Oriented, Gross neurological examination did not reveal any focal deficits. Assessment/Plan: Patient is a 25 year old male with no significant past medical history admitted to this hospital for schizophrenia and cannabis use disorder, is seen today in medical consultation for medical management. #. Nausea #. Left upper quadrant abdominal pain Patient notices improvement in pain after bowel movements. Possibly IBS T 99.8 F, MI 103 bpm Obtain abdomen ultrasound Ondansetron 4mg IVP Q8HR PRN Continue acetaminophen and ibuprofen for pain management Obtain CBC #. Prediabetes A1c 6.4 in Dec 2024 Obtain A1c Insulin sliding scale POC glucose checks #. Tobacco dependence Continue nicotine patch #. GI upset Continue Maalox 30 mL p.o. every 4 hours as needed #. Constipation Continue milk of magnesia 25 mg p.o. daily as needed #. Schizophrenia #. Cannabis use disorder Patient is receiving Haldol, trazodone, Ativan, benztropine per primary admitting team Monitor vital signs Monitor CBC Monitor BMP Dictation was produced using [employer] dictation software. please excuse any grammatical, word or spelling errors. Alfreda Maharaj MD PGY-1 IM Past Medical History Past Medical History: No Reported History History of Any Multi-Drug Resistant Organisms: None Reported Past Surgical History: Orthopedic Surgery Additional Past Surgical History / Comment(s): oral surgery, Past Anesthesia/Blood Transfusion Reactions: No Reported Reaction Past Psychological History: Anxiety, Depression, PTSD, Schizophrenia Smoking Status: Current every day smoker, Vaper Past Alcohol Use History: None Reported Past Drug Use History: Marijuana - Past Family History Father Family Medical History: Hyperlipidemia Family Family Medical History: No Reported History Medications and Allergies Home Medications Medication Instructions Recorded Confirmed Type Haloperidol Decanoate [Haldol D] 100 mg IM Q28D 03/11/25 03/11/25 History haloperidoL [Haldol] 5 mg PO BID 03/11/25 03/11/25 History Allergies Allergy/AdvReac Type Severity Reaction Status Date / Time No Known Allergies Allergy Verified 03/11/25 18:33 Physical Exam Vitals: Vital Signs Temp Pulse BP Pulse Ox 03/13/25 09:00 98.3 F 106 H 129/88 97 <Megan Hancock M - Last Filed: 03/14/25 00:55> History of Present Illness I have seen and evaluated the patient today. I Discussed the case with the resident and agree with the resident's findings I edited the assessment and plan as necessary as documented in the resident's note. Physical Exam Vitals: Vital Signs Temp Pulse BP Pulse Ox 03/13/25 21:00 99.3 F 103 H 132/89 03/13/25 09:00 98.3 F 106 H 129/88 97 Cranial Nerve Examination - Cranial Nerves Cranial Nerve II- Optic: Intact Cranial Nerve III- Oculomotor: Intact Cranial Nerve IV- Trochlear: Intact Cranial Nerve V- Trigeminal: Intact Cranial Nerve - Abducens: Intact Cranial Nerve VII- Facial: Intact Cranial Nerve VIII- Auditory: Intact Cranial Nerve IX- Glossopharyngeal: Intact Cranial Nerve X- Vagus: Intact Cranial Nerve XI- Accessory: Intact Cranial Nerve XII- Hypoglossal: Intact
[2025-03-14 07:34] LABS: HCT 38.4 % (39.6-50.0); HGB 12.8 g/dL (13.0-17.0); MCH 26.4 pg (27.0-32.0); MCHC 33.3 g/dL (32.0-37.0); MCV 79.3 fL (80.0-97.0); Mean Platelet Volume 9.3 fL (9.5-12.2); Platelet Count 293 10*3/uL (140-440); RBC 4.84 10*6/uL (4.40-5.60); RDW 14.1 % (11.5-14.5); WBC 7.35 10*3/uL (4.50-10.00)
[2025-03-14 07:39] LABS: Glucose,Whole Blood 105 mg/dL (70-110)
[2025-03-14 07:54] LABS: ALT 26 U/L (4-49); AST 30 U/L (17-59); African American GFR (CKD) >90 (>60 ml/min/1.73 sqM); Albumin 4.6 g/dL (3.5-5.0); Alkaline Phosphatase 59 U/L (38-126); Anion Gap 6 mmol/L; Blood Urea Nitrogen 13 mg/dL (9-20); Calcium 10.1 mg/dL (8.4-10.2); Carbon Dioxide 31 mmol/L (22-30); Chloride 101 mmol/L (98-107); Glucose 104 mg/dL (74-99); Non-African American GFR(CKD) >90 (>60 ml/min/1.73 sqM); Potassium 4.5 mmol/L (3.5-5.1); Sodium 138 mmol/L (137-145); Total Bilirubin 0.5 mg/dL (0.2-1.3); Total Protein 7.6 g/dL (6.3-8.2)
[2025-03-14] MEDS: INSULIN LISPRO (HumaLOG) 100 UNIT/ML 10 mL VL SQ SCH (08:57)
--- NOTE | 2025-03-14 11:47 | P.PN ---
Progress Note - Text Progress Note Date: 03/14/25 Interval history: Patient was seen today for psychiatric follow-up. Patient was wandering the h allways, on his way to group. Agreeable to speak to newswriter briefly. He continues to have poverty of content, hesitant at times. States that he wanted to ask newswriter a "question in private" and when newswriter asked what it was, patient states "who are you?". Patient did not sleep well apparently, was agreeable to try trazodone at nighttime. Less responding to internal stimuli at this time. Claims that he is having mild muscle stiffness. denied any acute dystonia or tremors. Denies any depression or anxiety. Has been going to some groups. he denies AH and denies any VH. denies any suicidal homicidal ideations intent or plan. MENTAL STATUS EXAM: General Appearance: Patient appears to be stated age is alert, attempts to cooperate, bizarre, less responding to internal stimuli. Patient appears to have fair hygiene and grooming. Behavior: Patient less responding to internal stimuli, slowed movements, no tremor, bizzare. Speech: Patient's speech is concrete, monotone Mood/Affect: Claims that his mood is fair, admits to anxiety, affect is constricted, improving mildly Suicidality/Homicidality: Denies Perceptions: denies any voices, denies any visual hallucinations Though content/process: not endorsing any paranoia. Fairly concrete poverty of content Memory and concentration: Alert and oriented x 3, follows directions Judgment and insight: Chronically poor/impulsive IMPRESSIONS: schizophrenia Cannabis use disorder PLAN: -Patient is admitted under DAR, expires 02/2026 status to MHU for stabilization of psychiatric symptoms and safety. Patient has not signed adult voluntary form and medication consent and is placed in patient's chart. -Medications : Patient received haldol D 100 mg IM on 03/12, will be due for next dose in [id number] on 04/10. trazodone 100 mg bedtime for insomnia/mood. increase cogentin 1 mg bid for eps reaction -Ativan and Haldol PRN for agitation/aggression -NRT -not needed as patient does not smoke -SW on board for discharge planning. Encourage patient to participate in groups to work on coping skills. patient is currently on a court order, hopeful for discharge in 2-3 days if patient is improving. he is currently homeless.
[2025-03-14 13:06] LABS: Glucose,Whole Blood 117 mg/dL (70-110)
[2025-03-14 17:55] LABS: Glucose,Whole Blood 84 mg/dL (70-110)
[2025-03-14] MEDS: traZODone HCL 100 MG TAB PO SCH (21:03)
[2025-03-14] MEDS: BENZTROPINE MESYLATE 1 MG TAB PO SCH (21:03)
[2025-03-15 07:54] LABS: Glucose,Whole Blood 99 mg/dL (70-110)
--- NOTE | 2025-03-15 10:30 | P.PN ---
Progress Note - Text Progress Note Date: 03/15/25 Interval history: Patient was seen today for psychiatric follow-up. Patient was wandering the h allways, drinking water. He states he wanted to speak in the hallway and not his room today. He continues to be fairly concrete, not endorsing any issues with his medications. Denies any muscle stiffness or tremors. He appears to continue to have poor attention span, during the conversation. Not endorsing any delusions or paranoia today. Continues to have poverty of content, hesitant at times. States that he did sleep a bit better last night with the trazodone. Less responding to internal stimuli today. Denies any depression or anxiety. Has been going to some groups. he denies AH and denies any VH. denies any suicidal homicidal ideations intent or plan. Patient walked away midsentence while speaking with repairer typewriter. MENTAL STATUS EXAM: General Appearance: Patient appears to be stated age is alert, attempts to cooperate, bizarre, less responding to internal stimuli. Patient appears to have fair hygiene and grooming. Behavior: Patient less responding to internal stimuli, no tremor, bizzare. Improving mildly Speech: Patient's speech is concrete, monotone, improving mildly Mood/Affect: Claims that his mood is fair, admits to anxiety, affect is constricted, improving mildly Suicidality/Homicidality: Denies Perceptions: denies any voices, denies any visual hallucinations Though content/process: not endorsing any paranoia. Fairly concrete poverty of content, improving mildly Memory and concentration: Alert and oriented x 3, follows directions Judgment and insight: Chronically poor/impulsive, improving mildly IMPRESSIONS: schizophrenia Cannabis use disorder PLAN: -Patient is admitted under DAR, expires 02/2026 status to MHU for stabilization of psychiatric symptoms and safety. Patient has not signed adult voluntary form and medication consent and is placed in patient's chart. -Medications : Patient received haldol D 100 mg IM on 03/12, will be due for next dose in [id number] on 04/10. trazodone 100 mg bedtime for insomnia/mood. cogentin 1 mg bid for eps reaction -Ativan and Haldol PRN for agitation/aggression -NRT -not needed as patient does not smoke -SW on board for discharge planning. Encourage patient to participate in groups to work on coping skills. patient is currently on a court order, hopeful for discharge early next week if patient is improving. he is currently homeless.
[2025-03-15] MEDS: LORazepam 2 MG/ML INJ IM STA (19:42)
[2025-03-15] MEDS: ZIPRASIDONE 20 MG VIAL IM STA (19:45)
[2025-03-15] MEDS ORDERED: HALOPERIDOL DECANOATE 50 MG/ML 1 ML VIAL IM ONE (21:00)
[2025-03-16] MEDS: MAG HYDROX/AL HYDROX/SIMETH 355 ML BOTTLE PO PRN (02:27)
[2025-03-16] MEDS: HALOPERIDOL DECANOATE 50 MG/ML 1 ML VIAL IM ONE (09:04)
[2025-03-16] MEDS ORDERED: LORazepam 2 MG/ML INJ IM PRN (11:37)
--- NOTE | 2025-03-16 11:43 | P.PN ---
Progress Note - Text Progress Note Date: 03/16/25 Interval history: Patient was seen today for psychiatric follow-up. Patient was wandering the h alls earlier, was aggressive agitated breaking things on the unit being disruptive. Patient received Haldol as needed and also Haldol dec injection this morning 50 mg IM. Patient was also disruptive last night breaking signs and agitated paranoid with staff members. He received Geodon and Ativan and 1 dose IM and slept the whole night after that. Patient was attempted to be seen by internal communications writer today he was laying on the couch in the lounge, awoken briefly was not interested in speaking with internal communications writer did not answer any questions. He appeared to be fairly sedated. MENTAL STATUS EXAM: General Appearance: Patient appears to be stated age is sedated, Patient appears to have fair hygiene and grooming. Behavior: Patient was fairly sedated today. Has been agitated responding to internal stimuli and aggressive Speech: Unable to assess Mood/Affect: Unable to assess Suicidality/Homicidality: Unable to assess Perceptions: Unable to assess Though content/process: Unable to assess Memory and concentration: Unable to assess Judgment and insight: Chronically poor IMPRESSIONS: schizophrenia Cannabis use disorder PLAN: -Patient is admitted under DAR, expires 02/2026 status to MHU for stabilization of psychiatric symptoms and safety. Patient has not signed adult voluntary form and medication consent and is placed in patient's chart. -Medications : Patient received haldol D 100 mg IM on 03/12 + another 50 mg IM on 03/16 for a total of 150 mg, will be due for next dose in [id number] on 04/05. trazodone 100 mg bedtime for insomnia/mood. cogentin 1 mg bid for eps reaction. added depakote 500 mg qhs for mood stabilization/aggression -Ativan and geodon PRN for agitation/aggression -NRT -not needed as patient does not smoke -SW on board for discharge planning. Encourage patient to participate in groups to work on coping skills. patient is currently on a court order, hopeful for discharge early next week if patient is improving. he is currently homeless.
[2025-03-16] MEDS: ZIPRASIDONE 40 MG CAP PO PRN (12:23)
[2025-03-16] MEDS: haloperidoL 5 MG TAB PO STA (16:25)
[2025-03-16] MEDS: LORazepam 1 MG TAB PO STA (16:25)
[2025-03-16] MEDS: ZIPRASIDONE 20 MG VIAL IM PRN (20:15)
[2025-03-17] MEDS: DIVALPROEX ER 500 MG TAB.ER.24H PO SCH (02:59)
[2025-03-17] MEDS: OLANZapine 10 MG VIAL IM STA (05:11)
--- NOTE | 2025-03-17 10:51 | P.PN ---
Subjective Progress Note Date: 03/17/25 Principal diagnosis: Schizophrenia Patient was seen today for psychiatric follow-up. Patient was wandering the halls earlier.He started by saying, "I am an pricila." but could not explain what he meant. At first he refused to talk to me and then changed his mind. Eye contact is minimal. MENTAL STATUS EXAM: General Appearance: Patient appears to be stated age is sedated, Patient appears to have fair hygiene and grooming. Behavior: Patient was fairly sedated today. Has been agitated responding to internal stimuli and aggressive Speech: Unable to assess Mood/Affect: Unable to assess Suicidality/Homicidality: Unable to assess Perceptions: Unable to assess Though content/process: Unable to assess Memory and concentration: Unable to assess Judgment and insight: Chronically poor IMPRESSIONS: schizophrenia Cannabis use disorder PLAN: -Patient is admitted under DAR, expires 02/2026 status to MHU for stabilization of psychiatric symptoms and safety. Patient has not signed adult voluntary form and medication consent and is placed in patient's chart. -Medications : Patient received haldol D 100 mg IM on 03/12 + another 50 mg IM on 03/16 for a total of 150 mg, will be due for next dose in [id number] on 04/05. trazodone 100 mg bedtime for insomnia/mood. cogentin 1 mg bid for eps reaction. added depakote 500 mg qhs for mood stabilization/aggression -Ativan and geodon PRN for agitation/aggression -NRT -not needed as patient does not smoke -SW on board for discharge planning. Encourage patient to participate in groups to work on coping skills. patient is currently on a court order, hopeful for discharge early next week if patient is improving. he is currently homeless. Objective - Vital Signs Vital signs: Vital Signs Temp 98.2 F 03/17/25 09:00 Pulse 102 H 03/17/25 09:00 Resp 16 03/17/25 09:00 BP 137/91 03/17/25 09:00 Pulse Ox 97 03/17/25 09:00 FiO2 - Labs CBC & Chem 7: 03/14/25 07:17 03/14/25 07:17
[2025-03-17] MEDS: haloperidoL 5 MG TAB PO STA (11:30)
[2025-03-17] MEDS: LORazepam 1 MG TAB PO STA (11:30)
--- NOTE | 2025-03-18 08:55 | P.PN ---
Subjective Progress Note Date: 03/18/25 Principal diagnosis: Schizophrenia Subjective: Patient was seen today for psychiatric follow-up. Patient was socializing and pleasant and had a nice smile on his face He wanted to know if I was actually Demi Sellers. (I do have white hair and a estrada so does not totally out of touch but he seemed to really believe that I might be Demi Sellers and he told me a story about having seen Marcus but his family would not believe him) he says he slept well appetite is good no med side effects on his medications General Appearance: Patient appears to be stated age is sedated, Patient appears to have fair hygiene and grooming. Behavior: Patient was fairly sedated today. Has been agitated responding to internal stimuli and aggressive Speech: Unable to assess Mood/Affect: Unable to assess Suicidality/Homicidality: Unable to assess Perceptions: Unable to assess Though content/process: Unable to assess Memory and concentration: Unable to assess Judgment and insight: Chronically poor IMPRESSIONS: schizophrenia Cannabis use disorder PLAN: -Patient is admitted under DAR, expires 02/2026 status to MHU for stabilization of psychiatric symptoms and safety. Patient has not signed adult voluntary form and medication consent and is placed in patient's chart. -Medications : Patient received haldol D 100 mg IM on 03/12 + another 50 mg IM on 03/16 for a total of 150 mg, will be due for next dose in [id number] on 04/05. trazodone 100 mg bedtime for insomnia/mood. cogentin 1 mg bid for eps reaction. added depakote 500 mg qhs for mood stabilization/aggression -Ativan and geodon PRN for agitation/aggression -NRT -not needed as patient does not smoke -SW on board for discharge planning. Encourage patient to participate in groups to work on coping skills. patient is currently on a court order, hopeful for discharge early next week if patient is improving. he is currently homeless. Objective - Vital Signs Vital signs: Vital Signs Temp 98.2 F 03/17/25 09:00 Pulse 102 H 03/17/25 09:00 Resp 16 03/17/25 09:00 BP 137/91 03/17/25 09:00 Pulse Ox 97 03/17/25 09:00 FiO2 - Labs CBC & Chem 7: 03/14/25 07:17 03/14/25 07:17
[2025-03-18] MEDS: haloperidoL 5 MG TAB PO STA (16:13)
[2025-03-18] MEDS: LORazepam 1 MG TAB PO STA (16:13)
--- NOTE | 2025-03-19 12:12 | P.PN ---
Progress Note - Text Progress Note Date: 03/19/25 Interval history: Patient was seen today for psychiatric follow-up. Patient was seen wandering hallways earlier, he was seen conversing with the patient in the lounge agreeable to speak to comic book writer. Continues to be fairly concrete, very poor insight poor judgment. Denies any issues over the weekend however according to staff patient has been writing on the floyd when instructed not to, received several as needed medications for agitation has been slapping and breaking the exit sign in the hallway. Patient can continues to be fairly defiant not listening to rules and protocols. He was noted to be responding to internal stimuli less today. Denies any depression or anxiety. Believes that he does not need medications. Claims that he slept fairly last night. He is denying any auditory or visual hallucinations. MENTAL STATUS EXAM: General Appearance: Patient appears to be stated age is alert, minimally cooperative, somewhat evasive. Bizarre at times. Patient appears to have fair hygiene and grooming. Behavior: Patient was minimally cooperative. less responding to internal s timuli Speech: Patient's speech is fluent, concrete monotone Mood/Affect: Denies any depression, affect is constricted Suicidality/Homicidality: Denies Perceptions: Denies Though content/process: Fairly concrete, poverty of content. Not endorsing any paranoia or delusions. Memory and concentration: Alert and oriented x 3, follows some command Judgment and insight: Chronically poor IMPRESSIONS: schizophrenia Cannabis use disorder PLAN: -Patient is admitted under DAR, expires 02/2026 status to MHU for stabilization of psychiatric symptoms and safety. Patient has not signed adult voluntary form and medication consent and is placed in patient's chart. -Medications : Patient received haldol D 100 mg IM on 03/12 + another 50 mg IM on 03/16 for a total of 150 mg, will be due for next dose in [id number] on 04/05. change trazodone to seroquel 50 mg qhs for insomnia/mood stabilization. cogentin 1 mg bid for eps reaction. increase depakote 500 mg bid for mood stabilization/aggression -Ativan and geodon PRN for agitation/aggression -NRT -not needed as patient does not smoke -SW on board for discharge planning. Encourage patient to participate in groups to work on coping skills. patient is currently on a court order, hopeful for discharge this week if patient is improving. he is currently homeless.
[2025-03-19] MEDS: QUEtiapine 50 MG TAB PO SCH (20:20)
[2025-03-19] MEDS: DIVALPROEX ER 500 MG TAB.ER.24H PO SCH (20:20)
[2025-03-20 09:15] VITALS: BP 121/73; PULSE 109; RESP 18; TEMP 98.2
--- NOTE | 2025-03-20 11:13 | P.DS ---
Providers Date of admission: 03/11/25 21:49 Expected date of discharge: 03/20/25 Attending physician: Mata Peterson MD Consults: 03/11/25 21:52 Consult Physician Routine Consulting Provider: Za Flynn Consult Reason/Comments: H&P Do you want consulting provider notified?: Yes Primary care physician: Stated None - Discharge Diagnosis(es) (1) Schizophrenia Current Visit: Yes Status: Acute Priority: High (2) Cannabis use disorder Current Visit: Yes Status: Acute Priority: High (3) Homelessness Current Visit: Yes Status: Acute Priority: Medium Hospital Course: Admission HPI: Admission note was completed by blurb writer "patient is a 25-year-old - [place] male, homeless and on an DAR with an expiration date for 02/2026. Patient presented to the hospital with mental health concerns. Per EPS nursing note "Pt is not willing to speak to other staff, but is willing to speak to this RN. Pts sister Kim is present for assessment. Pt was seen in ER yesterday, 03/10/25 by this RN. Pt did express Hallucinations yesterday but denied that they were command in nature. Pts attitude and affect today have shifted in comparison to yesterdays visit with this RN. Pt states that his AH are now command in nature, telling him to hurt other people. Pt seems to be more agruementative with other staff members. Pt is denying SI, when asked about HI he is not directly answering the question but states he feels unsafe with himself. Pt states that his VH are hard to explain but they are "signs, like end of the world stuff". Pt does follow with the ACT at [facility]. Pt was last seen by on 02/26 and during that time he didn't make med changes but also didn't write an y new prescriptions. Pt was just recently released from custodial on Wednesday, states he is smoking marijuana. Pt states that he drank a few sips of etoh a few days ago but not a daily drinker. Pt denies any other substane use. Pt last got his Haldol Dec IM on 02/05/25 but has not received any IM since then and did not write a new order. Pt is on a continuing DAR until 03/07/26. When RN walked out of the room to get him a sandwich he stepped in the crews and said, "shoot me" to other staff members. He stated that "he is going through my stuff for my fingerprints". BAT 0.00 per JACKIE Manuel RN. Asked to be documented" Patient seen today pacing the hallways wandering around, he had a human relations teacher his forehead. He was seen talking to himself responding to internal stimuli. Emergency Medicine Physician attempted to speak with patient he initially appeared to be responsive however went to his room and began speaking bizarrely to blurb writer. He asked blurb writer if he had "false teeth" and states that he did not trust him, claims that he does not want to speak to blurb writer today. He appears to be internally preoccupied, impulsive hostile at times. He refused to answer any questions at this time. Patient is currently on a mental health court order, he has been on Haldol D, 100 mg every 4 weeks last dose was given at [facility] on 02/05/2025. Patient was positive for THC on drug screen. His Depakote level was 79.5 on admission." Hospital course: Upon admission to the unit patient was admitted involuntarily on a current active treatment order for mental health treatment which expires on 02/2026. Patient was initially bizarre, aggressive psychotic however with time and treatment patient got along well with other patients on the unit and followed unit protocol. Patient was compliant with the medications and denied any side effects throughout hospital course. Patient did require several as needed medications due to severe agitation and also aggression and breaking things on the unit. patient was started on Haldol D, was given 100 mg IM on 03/12 and another 50 mg IM on 03/16 for total of 150 mg IM, this will need to be given every 3 weeks, next dose on 04/15 of 150 mg. Seroquel 50 mg nightly for mood stabilization/insomnia, Cogentin 1 mg twice daily for EPS reaction, Seroquel 500 mg twice daily for mood stabilization/aggression. Patient spoke of his stressors and engaged in therapy both group/activity therapy. Patient was also seen by medical team for history and physical exam. Throughout the course of the hospitalization patient gradually improved with regards to mood, anxiety, psychosis, sleep and returned back to their baseline level of functioning. On the day of discharge patient denied any suicidal or homicidal ideations intent or plan denied any auditory or visual hallucinations. Patient endorsed wanting to live for his future and his life. The patient denied any access to guns or weapons. Patient denied any paranoia and did not endorse any delusions. Patient does have a significant history of substance abuse and was counseled on abstaining from all substances including alcohol and marijuana. Patient elected to do outpatient substance use treatment program through their outpatient provider. Patient declined inpatient rehab. Patient was also counseled on the medications and need for regular compliance and was encouraged to follow-up with their outpatient appointment for mental health and also for primary care. Patient will continue on with the [facility] ACT team for regular follow-up and treatment. Patient will also be referred to custodial. Mental status exam: General Appearance: Patient appears to be thin, stated age is alert, attempts to be cooperative. Patient is in no acute distress and has improved hygiene and grooming Behavior: Patient is calmly seated without any agitated behavior. Fairly cooperative Speech: Patient's speech is fluent and nonpressured. Mood/Affect: Patient reports their mood is "good", affect is congruent and constricted Suicidality/Homicidality: Patient denies having any suicidal or homicidal ideation intent or plan. Perceptions: Patient denies any auditory or visual hallucinations. Though content/process: There is no evidence of any delusional thought content and thought process is linear and goal-directed. Fairly concrete Memory and concentration: AOX3, grossly intact for the purposes of this session. Can spell "WORLD" backwards correctly. Judgment and insight: Chronically poor, however has improved with guarded prognosis Impression: Schizophrenia Cannabis use disorder Homelessness Plan: -Continue with discharge today as patient has improved and stabilized psychiatrically and is not currently an imminent threat to themself and/or others. Patient will remain at chronically elevated risk for harm to self and/or others due to their impulsivity and substance abuse. -Continue medications: Patient will be on Haldol D1 150 mg every 3 weeks, next dose will be due at [facility] on 04/05 for psychosis. Seroquel 50 mg nightly for insomnia/mood stabilization, Cogentin 1 mg twice daily for EPS reaction, Depakote 500 mg twice daily for mood stabilization/aggression. -Patient was counseled on the need for medication compliance and appropriate follow-up at mental health and also primary care for medical issues. Patient verbalized understanding and agreed. -Social work to help coordinate patients discharge today, patient will be referred to custodial today. also to ensure safe home environment that guns/weapons are either removed from the home or locked away. Social work also to arrange for patients follow up appointments with [facility] for psychiatric care along with follow up with primary care provider. Patient will be followed up closely by the ACT team through [facility]. -Patient counseled on abstaining from recreational drugs and marijuana and alcohol. Was informed/educated on the adverse effects on their physical and mental health. Patient verbally agreed and understood. Patient was offered substance abuse treatment however declined at this time. -Patient was instructed to return to the hospital or seek immediate medical care if their psychiatric or medical symptoms do worsen or reoccur. Allergies Allergy/AdvReac Type Severity Reaction Status Date / Time No Known Allergies Allergy Verified 03/11/25 18:33 Laboratory Results WBC 7.35 10*3/uL (4.50-10.00) 03/14/25 07:17 RBC 4.84 10*6/uL (4.40-5.60) 03/14/25 07:17 Hgb 12.8 g/dL (13.0-17.0) L 03/14/25 07:17 Hct 38.4 % (39.6-50.0) L 03/14/25 07:17 MCV 79.3 fL (80.0-97.0) L 03/14/25 07:17 MCH 26.4 pg (27.0-32.0) L 03/14/25 07:17 MCHC 33.3 g/dL (32.0-37.0) 03/14/25 07:17 Plt Count 293 10*3/uL (140-440) 03/14/25 07:17 MPV 9.3 fL (9.5-12.2) L 03/14/25 07:17 Sodium 138 mmol/L (137-145) 03/14/25 07:17 Potassium 4.5 mmol/L (3.5-5.1) 03/14/25 07:17 Chloride 101 mmol/L (98-107) 03/14/25 07:17 Carbon Dioxide 31 mmol/L (22-30) H 03/14/25 07:17 Anion Gap 6 mmol/L 03/14/25 07:17 BUN 13 mg/dL (9-20) 03/14/25 07:17 Creatinine 0.71 mg/dL (0.66-1.25) 03/14/25 07:17 Est GFR (CKD-EPI)AfAm >90 (>60 ml/min/1.73 sqM) 03/14/25 07:17 Est GFR (CKD-EPI)NonAf >90 (>60 ml/min/1.73 sqM) 03/14/25 07:17 Glucose 104 mg/dL (74-99) H 03/14/25 07:17 POC Glucose (mg/dL) 99 mg/dL (70-110) 03/15/25 07:52 POC Glu Medical Manager ID Magalie White 03/15/25 07:[address] Glu mg/dL 117 mg/dL 03/14/25 07:17 Hemoglobin A1c 5.7 % (<=6.0) 03/14/25 07:17 Calcium 10.1 mg/dL (8.4-10.2) 03/14/25 07:17 Total Bilirubin 0.5 mg/dL (0.2-1.3) 03/14/25 07:17 AST 30 U/L (17-59) 03/14/25 07:17 ALT 26 U/L (4-49) 03/14/25 07:17 Alkaline Phosphatase 59 U/L (38-126) 03/14/25 07:17 Total Protein 7.6 g/dL (6.3-8.2) 03/14/25 07:17 Albumin 4.6 g/dL (3.5-5.0) 03/14/25 07:17 Influenza Type A (PCR) Not Detected (Not Detectd) 03/13/25 22:50 Influenza Type B (PCR) Not Detected (Not Detectd) 03/13/25 22:50 RSV (PCR) Not Detected (Not Detectd) 03/13/25 22:50 SARS-CoV-2 (PCR) Not Detected (Not Detectd) 03/13/25 22:50 Vital Signs Temp 98.2 F 03/20/25 09:14 Pulse 109 H 03/20/25 09:14 Resp 18 03/20/25 09:14 BP 121/73 03/20/25 09:14 Pulse Ox 99 03/20/25 09:14 FiO2 Health Concerns: FOLLOW UP:Out pt follow up with your PCP in 1-2 days regarding bowel issues. Patient Condition at Discharge: Stable Plan - Discharge Summary Discharge Rx Participant: No New Discharge Prescriptions: No Action Haloperidol Decanoate [Haldol D] 100 mg IM Q28D haloperidoL [Haldol] 5 mg PO BID Discharge Medication List Haloperidol Decanoate [Haldol D] 100 mg IM Q28D 03/11/25 [History] haloperidoL [Haldol] 5 mg PO BID 03/11/25 [History] Follow up Appointment(s)/Referral(s): [facility] [NON-STAFF] - 1 Week Activity/Diet/Wound Care/Special Instructions: [facility] Discharge Info Avoid the use of street drugs and alcohol. Take all medications as prescribed. When you are in need of refills on your medications, please contact your outpatient medical provider and/or outpatient psychiatrist. Please go to your scheduled outpatient appointments for aftercare treatment. If symptoms return or become worse, call the crisis line at or and/or visit the nearest emergency room for assistance. National Suicide and Crisis Lifeline - call or text 448
== END 2025-03-20 14:08 | disposition home or self-care (01) | DRG 750 ==
LOC: EC 18:10 → 3MHU 21:49
PROVIDERS: ADMIT Psychiatry & Neurology Psychiatry; ATTEND Psychiatry & Neurology Psychiatry
DX: F20.9 Schizophrenia, unspecified (principal); F12.10 Cannabis abuse, uncomplicated; Z59.01 Sheltered homelessness; G47.00 Insomnia, unspecified; Z56.0 Unemployment, unspecified; F43.10 Post-traumatic stress disorder, unspecified; F41.9 Anxiety disorder, unspecified; K58.1 Irritable bowel syndrome with constipation; F17.290 Nicotine dependence, other tobacco product, uncomplicated; F32.A Depression, unspecified; R73.03 Prediabetes; K30 Functional dyspepsia; Z79.899 Other long term (current) drug therapy; Z91.51 Personal history of suicidal behavior; Z71.51 Drug abuse counseling and surveillance of drug abuser; Z71.41 Alcohol abuse counseling and surveillance of alcoholic
CPT/HCPCS: 80053; 83036; 85027; 87636; 99285

== ENCOUNTER 2025-03-21 15:13 | Inpatient (IN) | payer MEDICAID, OTHER ==
--- NOTE | 2025-03-21 16:25 | ED ---
Lower Extremity Injury HPI - General Chief Complaint: Extremity Injury, Lower Stated Complaint: R leg injury Time Seen by Provider: 03/21/25 16:25 Source: patient Mode of arrival: wheelchair Limitations: no limitations - History of Present Illness Initial Comments: 25-year-old male presenting with chief complaint of right hip injury. Started a few days ago after playing basketball. Believes that he strained his groin. He is still able to walk and use the leg without difficulty. He also expresses homicidal ideation. He believes he needs to be admitted to the psychiatric unit. He does have previous psychiatric admissions. No other complaints. - Related Data Previous Rx's Medication Instructions Recorded Benztropine Mesylate [Cogentin] 1 mg PO BID 30 Days #60 tab 03/20/25 Divalproex ER [Depakote ER] 500 mg PO BID 30 Days #60 tab 03/20/25 Ibuprofen [Motrin] 600 mg PO Q6HR PRN tab 03/20/25 Nicotine 14Mg/24Hr Patch [Habitrol] 1 patch TRANSDERM DAILY 14 Days 03/20/25 #14 patch QUEtiapine [SEROquel] 50 mg PO HS 30 Days #30 tab 03/20/25 Haloperidol Decanoate [Haldol D] 150 mg IM Q21D #1 each 03/21/25 Allergies Allergy/AdvReac Type Severity Reaction Status Date / Time No Known Allergies Allergy Verified 03/21/25 18:45 Review of Systems ROS Statement: Those systems with pertinent positive or pertinent negative responses have been documented in the HPI. ROS Other: All systems not noted in ROS Statement are negative. Past Medical History Past Medical History: No Reported History History of Any Multi-Drug Resistant Organisms: None Reported Past Surgical History: Orthopedic Surgery Additional Past Surgical History / Comment(s): oral surgery, Past Anesthesia/Blood Transfusion Reactions: No Reported Reaction Past Psychological History: Anxiety, Depression, PTSD, Schizophrenia Smoking Status: Current every day smoker, Vaper Past Alcohol Use History: None Reported Past Drug Use History: Marijuana - Past Family History Father Family Medical History: Hyperlipidemia Family Family Medical History: No Reported History General Exam - General Exam Comments Initial Comments: Visual Physical Exam Vital signs reviewed General: Well-appearing, nontoxic, no acute distress. Head: Normocephalic, atraumatic Eyes: PERRLA, EOMI ENT: Airway patent Chest: Nonlabored breathing Skin: No visual rash, normal skin tone Neuro: Alert and oriented 3 Musculoskeletal: No gross abnormalities Limitations: no limitations General appearance: alert, in no apparent distress Head exam: Present: atraumatic, normocephalic, normal inspection Eye exam: Present: normal appearance, EOMI Neck exam: Present: normal inspection. Absent: meningismus Respiratory exam: Absent: respiratory distress Cardiovascular Exam: Present: regular rate Extremities exam: Present: normal inspection, full ROM Neurological exam: Present: alert, oriented X3 Skin exam: Present: normal color Course Vital Signs 03/21/25 15:40 Temperature 98.0 F Pulse Rate 95 Respiratory 18 Rate Blood Pressure 142/87 O2 Sat by Pulse 99 Oximetry Medical Decision Making - Medical Decision Making I performed the quick note portion of this visit, electronically signed Sourav Sams PA-C Was pt. sent in by a medical professional or institution ([facility], COREMAKING SUPERVISOR, urgent care, hospital, or retirement...) When possible be specific @ -No Did you speak to anyone other than the patient for history (EMS, parent, family, police, friend...)? What history was obtained from this source @ -No Did you review nursing and triage notes (agree or disagree)? Why? @ -I reviewed and agree with nursing and triage notes Were old charts reviewed (outside hosp., previous admission, EMS record, old EKG, old radiological studies, urgent care reports/EKG's, retirement records)? Report findings @ -No old charts were reviewed Differential Diagnosis (chest pain, altered mental status, abdominal pain women, abdominal pain men, vaginal bleeding, weakness, fever, dyspnea, syncope, headache, dizziness, GI bleed, back pain, seizure, CVA, palpatations, mental health, musculoskeletal)? @ -Differential Mental Health Depression, anxiety, bipolar, psychosis, schizophrenia, borderline personality, situational depression, adjustment disorder, behavioral disorder, brain tumor, malingering, substance abuse, encephalopathy, medication reaction, dementia, hypothyroidism, degenerative neurologic disorder, lupus.... This is not meant to be all-inclusive list EKG interpreted by me (3pts min.). @ -As above X-rays interpreted by me (1pt min.). @ -None done CT interpreted by me (1pt min.). @ -None done U/S interpreted by me (1pt. min.). @ -None done What testing was considered but not performed or refused? (CT, X-rays, U/S, labs)? Why? @ -None What meds were considered but not given or refused? Why? @ -None Did you discuss the management of the patient with other professionals (professionals i.e. , PA, COREMAKING SUPERVISOR, lab, RT, psych nurse, web content & social media manager, custom harvester, teacher, consumer safety officer, case advocate)? Give summary @ -No Was smoking cessation discussed for >3mins.? @ -No Was critical care preformed (if so, how long)? @ -No Were there social determinants of health that impacted care today? How? (Homelessness, low income, unemployed, alcoholism, drug addiction, renteria sportation, low edu. Level, literacy, decrease access to med. care, [facility], rehab)? @ -No Was there de-escalation of care discussed even if they declined (Discuss DNR or withdrawal of care, Hospice)? DNR status @ -No What co-morbidities impacted this encounter? (DM, HTN, Smoking, COPD, CAD, Cancer, CVA, ARF, Chemo, Hep., AIDS, mental health diagnosis, sleep apnea, morbid obesity)? @ -None Was patient admitted / discharged? Hospital course, mention meds given and route, prescriptions, significant lab abnormalities, going to OR and other pertinent info. @ -25-year-old male presenting with chief complaint of right hip pain and homicidal ideation. Patient strained his hip a few days ago after playing basketball. Patient is walking throughout the ER without any difficulty or antalgic gait. Patient is placed in a castañeda gown and belongings are placed at locker, patient is wanted by security. He is evaluated by EPS and is determined he needs admission. Undiagnosed new problem with uncertain prognosis? @ -No Drug Therapy requiring intensive monitoring for toxicity (Heparin, Nitro, Insulin, Cardizem)? @ -No Were any procedures done? @ -No Diagnosis/symptom? @ -Homicidal ideation Acute, or Chronic, or Acute on Chronic? @ -Acute Uncomplicated (without systemic symptoms) or Complicated (systemic symptoms)? @ -Complicated Side effects of treatment? @ -No Exacerbation, Progression, or Severe Exacerbation? @ -No Poses a threat to life or bodily function? How? (Chest pain, [place], [place], pneumonia, PE, COPD, DKA, ARF, appy, cholecystitis, CVA, Diverticulitis, Homicidal, Suicidal, threat to staff... and all critical care pts) @ -Yes - Lab Data Lab Results 03/21/25 03/21/25 03/21/25 Range/Units 17:30 17:30 18:26 Urine Color Colorless Urine Appearance Clear (Clear) Urine pH 6.5 (5.0-8.0) Ur Specific [place] 1.013 (1.001-1.035) Urine Protein Negative (Negative) Urine Glucose (UA) Negative (Negative) Urine Ketones Negative (Negative) Urine Blood Negative (Negative) Urine Nitrite Negative (Negative) Urine Bilirubin Negative (Negative) Urine Urobilinogen <2.0 (<2.0) mg/dL Ur Leukocyte Esterase Negative (Negative) Urine Opiates Screen Not Detected (NotDetected) Ur Oxycodone Screen Not Detected (NotDetected) Urine Methadone Screen Not Detected (NotDetected) Ur Barbiturates Screen Not Detected (NotDetected) U Tricyclic Antidepress Not Detected (NotDetected) Ur Phencyclidine Scrn Not Detected (NotDetected) Ur Amphetamines Screen Not Detected (NotDetected) U Methamphetamines Scrn Not Detected (NotDetected) U Benzodiazepines Scrn Detected H (NotDetected) Urine Cocaine Screen Not Detected (NotDetected) U Marijuana (THC) Screen Detected H (NotDetected) Influenza Type A (PCR) Not Detected (Not Detectd) Influenza Type B (PCR) Not Detected (Not Detectd) RSV (PCR) Not Detected (Not Detectd) SARS-CoV-2 (PCR) Not Detected (Not Detectd) Disposition Clinical Impression: Psychosis Disposition: ADMITTED IP TO THIS HOSP Condition: Fair Time of Disposition: 18:22
[2025-03-21 18:10] LABS: Amphetamine Screen,Urine Not Detected (NotDetected); Barbiturate Screen,Urine Not Detected (NotDetected); Benzodiazepines Screen,Urine Detected (NotDetected); Cocaine Screen,Urine Not Detected (NotDetected); Methadone Screen, Urine Not Detected (NotDetected); Opiate Screen,Urine Not Detected (NotDetected); Oxycodone Screen, Urine Not Detected (NotDetected); Phencyclidine Screen,Urine Not Detected (NotDetected); Tricyclic Antidepressant,Urine Not Detected (NotDetected); Urn Cannabinoid Scrn Detected (NotDetected)
[2025-03-21 19:06] LABS: Influenza A Not Detected (Not Detectd); Influenza B Not Detected (Not Detectd); RSV Not Detected (Not Detectd)
[2025-03-21] MEDS ORDERED: MAG HYDROX/AL HYDROX/SIMETH 355 ML BOTTLE PO PRN (19:33)
[2025-03-21] MEDS ORDERED: ACETAMINOPHEN TAB 325 MG TAB PO PRN (19:33)
[2025-03-21] MEDS ORDERED: MAGNESIUM HYDROXIDE 2,400 MG/30 ML CUP PO PRN (19:33)
[2025-03-21] MEDS ORDERED: LORazepam 2 MG/ML INJ IM PRN (19:35)
[2025-03-21] MEDS ORDERED: ZIPRASIDONE 20 MG VIAL IM PRN (19:35)
[2025-03-21] MEDS: QUEtiapine 50 MG TAB PO SCH (22:23)
[2025-03-21] MEDS: BENZTROPINE MESYLATE 1 MG TAB PO SCH (22:23)
[2025-03-21] MEDS: DIVALPROEX ER 500 MG TAB.ER.24H PO SCH (22:24)
--- NOTE | 2025-03-21 22:51 | P.HPIM ---
History of Present Illness H&P Date: 03/21/25 Chief Complaint: ellen De La Fuente is a 25-year-old male with past medical history of prediabetes. Of note the patient was discharged from inpatient behavioral health on March 20. He was discharged home with Haldol D1 3 mg every 3 weeks Seroquel 50 mg nightly Cogentin Depakote 500 g twice daily. He presented to hospital today complaining of a right hip injury. He reports that he was playing basketball however when speaking to the patient who is otherwise defensive reports that he was noticing that there were voices and they were following him.. He then presented to the hospital for the evaluation was admitted to inpatient behavioral health The patient was seen in inpatient behavioral health. He is otherwise defensive and is not participating much in history taking. Most recent vital signs show that his blood pressure is 138/93 he is 99% room air and his heart rate 71. Urine drug screen shows that is positive for benzodiazepines and cannabis. Flu a flu B RSV COVID-19 were negative. Review of Systems Pertinent positives and negatives as discussed in HPI, a complete review of systems was performed and all other systems are negative. Past Medical History Past Medical History: No Reported History History of Any Multi-Drug Resistant Organisms: None Reported Past Surgical History: Orthopedic Surgery Additional Past Surgical History / Comment(s): oral surgery, Past Anesthesia/Blood Transfusion Reactions: No Reported Reaction Smoking Status: Current every day smoker, Vaper - Past Family History Father Family Medical History: Hyperlipidemia Family Family Medical History: No Reported History Medications and Allergies Home Medications Medication Instructions Recorded Confirmed Type Benztropine Mesylate [Cogentin] 1 mg PO BID 30 Days #60 tab 03/20/25 03/21/25 Rx Divalproex ER [Depakote ER] 500 mg PO BID 30 Days #60 tab 03/20/25 03/21/25 Rx Ibuprofen [Motrin] 600 mg PO Q6HR PRN tab 03/20/25 03/21/25 Rx Nicotine 14Mg/24Hr Patch [Habitrol] 1 patch TRANSDERM DAILY 14 Days 03/20/25 03/21/25 Rx #14 patch QUEtiapine [SEROquel] 50 mg PO HS 30 Days #30 tab 03/20/25 03/21/25 Rx Haloperidol Decanoate [Haldol D] 150 mg IM Q21D #1 each 03/21/25 03/21/25 Rx Allergies Allergy/AdvReac Type Severity Reaction Status Date / Time No Known Allergies Allergy Verified 03/21/25 18:45 Physical Exam Vitals: Vital Signs Temp Pulse Pulse Resp BP BP Pulse Ox 03/21/25 22:23 71 18 138/93 99 03/21/25 15:40 98.0 F 95 18 142/87 99 Intake and Output 03/21/25 03/21/25 03/21/25 06:59 14:59 22:59 Other: Weight 68.209 kg General: non toxic, no distress, male Derm: warm, dry Head: atraumatic, normocephalic, symmetric Eyes: EOMI, no lid lag, anicteric sclera, ENT: Nose and ears atraumatic, no thrush, no pharyngeal erythema Neck: No thyromegaly, no cervical lymphadenopathy, trachea midline, supple Mouth: no lip lesion, mucus membranes moist Cardiovascular: S1S2 reg, no murmu Lungs: clear to ascultation bilateral Abdominal: soft, nontender to palpation, no guarding, no appreciable organomegaly, normal bowel sounds Ext: no gross muscle atrophy Neuro: defensive Psych: Alert, oriented, appropriate affect Results Labs: Abnormal Lab Results - Last 24 Hours (Table) 03/21/25 Range/Units 17:30 U Benzodiazepines Scrn Detected H (NotDetected) U Marijuana (THC) Screen Detected H (NotDetected) Thrombosis Risk Factor Assmnt - Choose All That Apply Any of the Below Risk Factors Present?: No Other Risk Factors: No Thrombosis Risk Factor Assessment Level: Very Low Risk Assessment and Plan Assessment: #) Schziophrenia. Managmeent as per psychiatry team currently on seroquel 50 mg hs, depakote 500 mg bid, benzotropine 1 mg bid #) Prediabetes with a1c of 5.7% earlier this month. can hold off poc glucose checks and sliding scale insulin #) Tobacco use. recommend cessation. nicotine patch while inpatient. nicotine patch while inpatient. reports smokes " a lot" #) Cannabis use disorder #) UDS positive for benzodiapines. ?[facility] Reviewed labwork from earlier in 02/2025. ldL noted to be 53.7. tsh of 1.020 with free t4 of 0.92. Thank you for allowing [facility] to take care of this patient. please do not hesitate to contact us if any further questions arise
[2025-03-21] MEDS: LORazepam 1 MG TAB PO PRN (23:13)
[2025-03-22 03:13] LABS: Appearance,Urine Clear (Clear); Bilirubin,Urine Negative (Negative); Blood,Urine Negative (Negative); Color,Urine Colorless; Glucose,Urine (UA) Negative (Negative); Ketones,Urine Negative (Negative); Leukocyte Esterase,Urine Negative (Negative); Nitrite,Urine Negative (Negative); PH, Urine 6.5 (5.0-8.0); Protein,Urine Negative (Negative); Specific Gravity,Urine 1.013 (1.001-1.035); Urobilinogen,Urine <2.0 mg/dL (<2.0)
[2025-03-22] MEDS: NICOTINE 21MG/24HR PATCH TRANSDERM SCH (08:16)
[2025-03-22] MEDS ORDERED: NICOTINE 14MG/24HR PATCH TRANSDERM SCH (09:00)
[2025-03-22] MEDS: ZIPRASIDONE 40 MG CAP PO PRN (09:35)
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
[2025-03-22] MEDS: IBUPROFEN 600 MG TAB PO PRN (17:39)
--- NOTE | 2025-03-23 11:48 | P.PN ---
Progress Note - Text Progress Note Date: 03/23/25 Interval history: Patient was seen today wandering the hallways. Mild improvement in hygiene and grooming today. He was fairly focused on speaking with magnetic tape typewriter operator today. States that he does not understand why he got brought up to the unit. Claims that he came to the hospital for a "hip problem" after playing basketball. Claims that he did smoke marijuana "took a few hits" after playing basketball. He states that he needs to be released today and needs "fresh air". He continues to have very poor insight poor judgment and does not believe that he has a mental illness and needs treatment. Continues to have poor reality testing as well. He made some negative remarks towards magnetic tape typewriter operator and states that "you have false teeth". Denies any depression or anxiety. Denies any issues with sleep. Denies any auditory or visual hallucinations denies suicidal or homicidal ideations intent or plan. Not reporting any issues with his medications MENTAL STATUS EXAM: General Appearance: Patient appears to be thin, stated age is somewhat tired, largely uncooperative with the evaluation, improving eye contact bizarre, hostile. Patient appears to have improving hygiene and grooming. Behavior: Patient bizarre, uncooperative, demanding discharge argumentative Speech: Patient's speech is pressured, fluent, concrete, improving mildly Mood/Affect: Denies any depression at this time or anxiety, affect is constricted Suicidality/Homicidality: Denies Perceptions: Denies. Though content/process: Poor reality testing, poor insight into his illness and need for treatment. Focused on discharge minimizing his need for hospitalization. Memory and concentration: Alert and oriented x 3, fair attention span Judgment and insight: Chronically poor/impulsive IMPRESSIONS: schizophrenia Noncompliance with medication regimen Cannabis use disorder Homelessness PLAN: -Patient is admitted under DAR, expires 02/2026 status to MHU for stabilization of psychiatric symptoms and safety. Patient has not signed adult voluntary form and did not medication consent and is placed in patient's chart. -Medications : Continue Haldol D 150 mg q3wks, next dose will be due on 04/05. Seroquel 50 mg nightly for mood stabilization/psychosis, Cogentin 1 mg twice daily for EPS reaction, Depakote 500 mg twice daily for mood stabilization/agitation. -Ativan and geodon PRN for agitation/aggression -NRT -not needed as patient does not smoke -SW on board for discharge planning. Encourage patient to participate in groups to work on coping skills. Patient is currently on an ACT team right now through [facility], will suggest to this team in [facility] to consider filing for public guardianship. possible discharge next week if patient is improving. he will need an intake with act team on the unit prior to dc.
--- NOTE | 2025-03-24 14:06 | P.PN ---
Progress Note - Text Progress Note Date: 03/24/25 Dictation was produced using [employer] dictation software. Please excuse any grammatical, word or spelling errors. Interval history: Patient was seen in the hallway and was directable and agreeable to speak with the underwriter mortgage loan in the office for psychiatric follow-up. The patient tried multiple times to speak to the underwriter mortgage loan during the day, the patient states that he is feeling a little agitated earlier as he want to mention to the underwriter mortgage loan that he came to the hospital for hip injury, and does not know why he is here, he states that "I just want to smoke his weed, and he will be fine." He states that he has been smoking since he was 11 yo. He reported depression to be at the low side, he rated depression at 1/10. He reported anxiety to be about 4/10. He denied any current SI/HI or self harm. He states that he has sleeping and eating fine. He states that he feels safe, and is getting along well with everyone in the unit. He states that he has been taking his medication and denied any side effects. He denied any muscle stiffness, rigidity, abnormal movement, or drooling. Earlier today when the underwriter mortgage loan was talking to another patient, patient came close by and told the other patient "did not sign any papers and everything will be counted against you." He was redirected. MENTAL STATUS EXAM: General Appearance: Patient appears to be thin, was calm, cooperative with the evaluation, improving eye contact, however patient seem to be paranoid at time. Patient appears to have improving hygiene and grooming. Behavior: Patient is less argumentative, lack insight into his mental illness, fixated on smoking weed Speech: Patient's speech is pressured, fluent, concrete, improving mildly Mood/Affect: Denies any depression at this time, reported moderate anxiety, affect is constricted Suicidality/Homicidality: Denies Perceptions: Denies. Though content/process: Poor reality testing, poor insight into his illness and need for treatment. Focused on discharge minimizing his need for hospitalization. Memory and concentration: Alert and oriented x 3, fair attention span Judgment and insight: Chronically poor/impulsive IMPRESSIONS: schizophrenia Noncompliance with medication regimen Cannabis use disorder Homelessness Assessment/Plan: Continue with current diagnosis. Patient continues to meet criteria for inpatient psychiatric admission for symptom stabilization and safety. Patient will be maintained on current psychotropic medication regimen which include Seroquel 50 mg p.o. at bedtime, Cogentin 1 mg p.o. twice daily, Depakote 500 mg p.o. twice daily, and Haldol decanoate 150 mg every 3 weeks, next dose 04/05/2025, no changes today. The patient denied any side effects, he denied any muscle stiffness, rigidity, abnormal movement, or drooling. Monitor for medication compliance and for any psychotropic medication side effects. Will continue to monitor ongoing response to treatment. Encouraged participation in milieu.
[2025-03-25 09:05] VITALS: RESP 16
--- NOTE | 2025-03-25 10:01 | P.PN ---
Progress Note - Text Progress Note Date: 03/25/25 Dictation was produced using [employer] dictation software. Please excuse any grammatical, word or spelling errors. Interval history: Patient was seen in the hallway and was directable and agreeable to speak with the business writer in the office for psychiatric follow-up. The patient was standing at the office door, asking the business writer to speak. The patient states that "I want my chain back, I need my cross, it makes me feel safe." States that his mood is "great" and he slept last night, reported as 6 hours, admitted to good appetite. States that anxiety is high, he rated at 10/10, and denied any depression. He denied any current SI/HI or self harm, he denied any current AVH, reported that he does not feel safe in he unit, "for spiritual reasons" " I can tell when people are talking about me." States that he has been taking his medications and denied any side effects. He denied any muscle stiffness, rigidity, abnormal movement, or drooling. The patient seems to be paranoid and suspicious. Reported that he just want to go home, smoke weed and play basketball. His hygiene, and grooming are improving. MENTAL STATUS EXAM: General Appearance: Patient appears to be thin, was calm, cooperative with the evaluation, improving eye contact, however patient seem to be paranoid at time. Patient appears to have improving hygiene and grooming. Behavior: Patient is less argumentative, lack insight into his mental illness, fixated on smoking weed, and going home Speech: Patient's speech is pressured, fluent, concrete, improving mildly Mood/Affect: Denies any depression at this time, reported moderate anxiety, affect is constricted Suicidality/Homicidality: Denies Perceptions: Denies. Though content/process: Poor reality testing, poor insight into his illness and need for treatment. Focused on discharge minimizing his need for hospitalization. Memory and concentration: Alert and oriented x 3, fair attention span Judgment and insight: Chronically poor/impulsive IMPRESSIONS: Schizophrenia Noncompliance with medication regimen Cannabis use disorder Homelessness Assessment/Plan: Continue with current diagnosis. Patient continues to meet criteria for inpatient psychiatric admission for symptom stabilization and safety. Patient will be maintained on current psychotropic medication regimen which include Seroquel 50 mg p.o. at bedtime, Cogentin 1 mg p.o. twice daily, Depakote 500 mg p.o. twice daily, and Haldol decanoate 150 mg every 3 weeks, next dose 04/05/2025, no changes today, may consider increasing the Depakote dose over the next few days. The patient denied any side effects, he denied any muscle stiffness, rigidity, abnormal movement, or drooling. Monitor for medica tion compliance and for any psychotropic medication side effects. Will continue to monitor ongoing response to treatment. Encouraged participation in milieu.
[2025-03-26 08:17] VITALS: BP 120/80; PULSE 81; TEMP 97.6
--- NOTE | 2025-03-26 08:56 | P.DS ---
Providers Date of admission: 03/21/25 19:15 Expected date of discharge: 03/26/25 Attending physician: Mata Peterson MD Consults: 03/21/25 19:33 Consult Physician Routine Consulting Provider: Za Flynn Consult Reason/Comments: H&P Do you want consulting provider notified?: Yes Primary care physician: Stated None - Discharge Diagnosis(es) (1) Schizophrenia Current Visit: Yes Status: Acute Priority: High (2) Non compliance w medication regimen Current Visit: Yes Status: Acute Priority: High (3) Cannabis use disorder Current Visit: Yes Status: Acute Priority: Medium (4) Homelessness Current Visit: Yes Status: Acute Priority: Medium Hospital Course: Admission HPI: Admission note was completed by publicity writer "Patient is a 25-year-old - Wallis[place] male, homeless and on an DAR with an expiration date for 02/2026. Patient presented to the hospital with mental health concerns. he was just discharged from the mental health unit on 03/20. as per EPS nursing note "Upon assessment pt was short and agitated. Pt was just recently discharged from [facility] on 03/20/25. Pt states that after discharge he didn't go to the halfway, but would not answer where he was at last night. Pt states that he has yet to get his medications filled since being discharged yesterday. He states he was playing basketball and then came here because he hurt his pelvis, pt was medically cleared. He then stated that he was having HI and wanted to speak with EPS. Pt admits to HI towards the demons, "the donnell that was in the ER that came at me, he was a demon, I see them in this room too". Pt would not disclose a plan. Pt could not describe what he was seeing. "It's a revolution, it's not safe outside...the [place] fires are due to the evils out there". Pt is paranoid and believes it is not safe outside and "they are after me". Pt states when he is on a unit he feels safer because of the cameras watching. Pt denies SI. Pt has HI, displaying paranoia, and AVH. Pt does not feel safe with himself and the "demons". Pt admits to using marijuana yesterday but denies any other substances at this time. Pt denies ETOH use. BAT 0. Pt is pre-diabetic. On a current order until 03/07/26." Patient seen today pacing the hallways earlier. He was agreeable to speak to publicity writer in his room, he had his back turned away from publicity writer laying on the bed with a sheet covering him. He appeared to be fairly disinterested in speaking with publicity writer today. He was fairly concrete, states that he does not know why he is in the hospital. He claims that he came here to be evaluated for a "hip injury" and was admitted to the mental health unit. When asked more about hallucinations paranoia delusions patient states that "I would rather keep that stuff to myself". He claims that he did not going crop picker any of his medications and did not go to a halfway. He became fairly guarded and argumentative when asked about substance use. Denied any depression at this time. Very poor insight poor judgment. He refused to answer any further questions at this time. Patient does has a history of cannabis abuse. He was just discharged on medications including Haldol the injection to help with compliance." Hospital course: Upon admission to the unit patient was admitted on an active court order for mental health treatment which expires on 03/24. Patient was initially bizarre, psychotic however with time and treatment patient got along well with other patients on the unit and followed unit protocol. Patient was compliant with the medications and denied any side effects throughout hospital course. Patient was started on his current medications which included Seroquel 50 mg nightly for mood stabilization/psychosis, Cogentin 1 mg twice daily for EPS reaction, Depakote 500 mg twice daily for mood stabilization/agitation. Patient also is currently on Haldol Dec 150 mg every 3 weeks next dose will be due on 04/05 at [facility]. Patient spoke of his stressors and engaged in therapy both group/activity therapy. Patient was also seen by medical team for history and physical exam. Throughout the course of the hospitalization patient gradually improved with regards to mood, anxiety, psychosis, sleep and returned back to their baseline level of functioning. On the day of discharge patient denied any suicidal or homicidal ideations intent or plan denied any auditory or visual hallucinations. Patient endorsed wanting to live for his health and his future. The patient denied any access to guns or weapons. Patient denied any paranoia and did not endorse any delusions. Patient does have a significant history of substance abuse and was counseled on abstaining from all substances including alcohol and marijuana. Patient elected to do outpatient substance use treatment program through their outpatient provider. Patient was also counseled on the medications and need for regular compliance and was encouraged to follow-up with their outpatient appointment for mental health and also for primary care. Patient is currently homeless, he will either go to halfway today or stay with his friend, ACT team currently following patient due to patient's high risk of rehospitalization. Mental status exam: General Appearance: Patient appears to be thin, stated age is alert, pleasant, and attempts to be cooperative. Patient is in no acute distress and has improved hygiene and grooming Behavior: Patient is calmly seated without any agitated behavior. Attempts to cooperate Speech: Patient's speech is fluent and nonpressured. Mood/Affect: Patient reports their mood is "good", affect is congruent Suicidality/Homicidality: Patient denies having any suicidal or homicidal ideation intent or plan. Perceptions: Patient denies any auditory or visual hallucinations. Though content/process: There is no evidence of any delusional thought content and thought process is linear and goal-directed. Memory and concentration: AOX3, grossly intact for the purposes of this session. Can spell "WORLD" backwards correctly. Judgment and insight: Chronically poor, however has improved with guarded prognosis Impression: Schizophrenia Noncompliance with medication regimen Cannabis use disorder Nicotine dependence Plan: -Continue with discharge today as patient has improved and stabilized psychiatrically and is not currently an imminent threat to themself and/or others. Patient will remain at chronically elevated risk for harm to self and/or others due to their impulsivity and substance abuse. -Continue medications: Patient is currently on Haldol Dec 150 mg every 3 weeks next dose will be due on 04/05 at [facility]. Seroquel 50 mg nightly for mood stabilization/psychosis, Cogentin 1 mg twice daily for EPS reaction, Depakote 500 mg twice daily for mood stabilization/agitation. -Patient was counseled on the need for medication compliance and appropriate follow-up at mental health and also primary care for medical issues. Patient verbalized understanding and agreed. -Social work to help coordinate patients discharge today. Patient is currently being followed by ACT team, he will be going to stay with either a friend versus staying in the halfway. also to ensure safe home environment that guns/weapons are either removed from the home or locked away. Social work also to arrange for patients follow up appointments with [facility] for psychiatric care along with follow up with primary care provider. -Patient counseled on abstaining from recreational drugs and marijuana and alcohol. Was informed/educated on the adverse effects on their physical and mental health. Patient verbally agreed and understood. Patient was offered substance abuse treatment however declined at this time. -Patient was instructed to return to the hospital or seek immediate medical care if their psychiatric or medical symptoms do worsen or reoccur. Allergies Allergy/AdvReac Type Severity Reaction Status Date / Time No Known Allergies Allergy Verified 03/21/25 18:45 Laboratory Results Urine Color Colorless 03/21/25 17:30 Urine Appearance Clear (Clear) 03/21/25 17:30 Urine pH 6.5 (5.0-8.0) 03/21/25 17:30 Ur Specific Kingsley 1.013 (1.001-1.035) 03/21/25 17:30 Urine Protein Negative (Negative) 03/21/25 17:30 Urine Glucose (UA) Negative (Negative) 03/21/25 17:30 Urine Ketones Negative (Negative) 03/21/25 17:30 Urine Blood Negative (Negative) 03/21/25 17:30 Urine Nitrite Negative (Negative) 03/21/25 17:30 Urine Bilirubin Negative (Negative) 03/21/25 17:30 Urine Urobilinogen <2.0 mg/dL (<2.0) 03/21/25 17:30 Ur Leukocyte Esterase Negative (Negative) 03/21/25 17:30 Urine Opiates Screen Not Detected (NotDetected) 03/21/25 17:30 Ur Oxycodone Screen Not Detected (NotDetected) 03/21/25 17:30 Urine Methadone Screen Not Detected (NotDetected) 03/21/25 17:30 Ur Barbiturates Screen Not Detected (NotDetected) 03/21/25 17:30 U Tricyclic Antidepress Not Detected (NotDetected) 03/21/25 17:30 Ur Phencyclidine Scrn Not Detected (NotDetected) 03/21/25 17:30 Ur Amphetamines Screen Not Detected (NotDetected) 03/21/25 17:30 U Methamphetamines Scrn Not Detected (NotDetected) 03/21/25 17:30 U Benzodiazepines Scrn Detected (NotDetected) H 03/21/25 17:30 Urine Cocaine Screen Not Detected (NotDetected) 03/21/25 17:30 U Marijuana (THC) Screen Detected (NotDetected) H 03/21/25 17:30 Influenza Type A (PCR) Not Detected (Not Detectd) 03/21/25 18:26 Influenza Type B (PCR) Not Detected (Not Detectd) 03/21/25 18:26 RSV (PCR) Not Detected (Not Detectd) 03/21/25 18:26 SARS-CoV-2 (PCR) Not Detected (Not Detectd) 03/21/25 18:26 Vital Signs Temp 97.6 F 03/26/25 08:16 Pulse 81 03/26/25 08:16 Resp 16 03/25/25 09:00 BP 120/80 03/26/25 08:16 Pulse Ox 100 03/26/25 08:16 FiO2 Intake & Output 03/25/25 03/26/25 03/26/25 18:59 06:59 18:59 Weight 67.5 kg Patient Condition at Discharge: Stable Plan - Discharge Summary Discharge Rx Participant: Yes New Discharge Prescriptions: New Ibuprofen [Motrin] 600 mg PO Q6HR PRN tab PRN Reason: Moderate Pain (Scale 4 To 6) Nicotine 21Mg/24Hr Patch [Habitrol] 1 patch TRANSDERM DAILY 14 Days #14 patch Continue Divalproex ER [Depakote ER] 500 mg PO BID 30 Days #60 tab QUEtiapine [SEROquel] 50 mg PO HS 30 Days #30 tab Benztropine Mesylate [Cogentin] 1 mg PO BID 30 Days #60 tab Haloperidol Decanoate [Haldol D] 150 mg IM Q21D #1 each Discontinued Nicotine 14Mg/24Hr Patch [Habitrol] 1 patch TRANSDERM DAILY 14 Days #14 patch Ibuprofen [Motrin] 600 mg PO Q6HR PRN tab PRN Reason: Moderate Pain (Scale 4 To 6) Discharge Medication List Benztropine Mesylate [Cogentin] 1 mg PO BID 30 Days #60 tab 03/20/25 [Rx] Divalproex ER [Depakote ER] 500 mg PO BID 30 Days #60 tab 03/20/25 [Rx] QUEtiapine [SEROquel] 50 mg PO HS 30 Days #30 tab 03/20/25 [Rx] Haloperidol Decanoate [Haldol D] 150 mg IM Q21D #1 each 03/21/25 [Rx] Ibuprofen [Motrin] 600 mg PO Q6HR PRN tab 03/26/25 [Rx] Nicotine 21Mg/24Hr Patch [Habitrol] 1 patch TRANSDERM DAILY 14 Days #14 patch 03/26/25 [Rx] Follow up Appointment(s)/Referral(s): None,Stated [Primary Care Provider] - 1-2 days Activity/Diet/Wound Care/Special Instructions: Avoid the use of street drugs and alcohol. Take all medications as prescribed. When you are in need of refills on your medications, please contact your medical provider and/or outpatient psychiatrist/provider to have this done. Please go to your scheduled outpatient appointment for aftercare treatment. If symptoms return or become worse, call the crisis line at and/or go to the nearest emergency room for evaluation. National Suicide Hotline [address] [facility] confidentiality statement: "The information contained in this commun ication, including attachments, is confidential, may be privileged, and is intended only for the use of the named recipient(s). Unauthorized use, disclosure, forwarding or copying is strictly prohibited and may be unlawful. If you have received this communication in error, please notify me IMMEDIATELY at the phone number or pager listed above. Discharge Disposition: OTHER INSTITUTION NOT DEFINED
== END 2025-03-26 12:30 | disposition home or self-care (01) | DRG 750 ==
LOC: EC 15:13 → 3MHU 19:15
PROVIDERS: ADMIT Psychiatry & Neurology Psychiatry; ATTEND Psychiatry & Neurology Psychiatry
DX: F20.9 Schizophrenia, unspecified (principal); F12.10 Cannabis abuse, uncomplicated; R73.03 Prediabetes; F17.200 Nicotine dependence, unspecified, uncomplicated; R45.850 Homicidal ideations; F41.9 Anxiety disorder, unspecified; Z56.0 Unemployment, unspecified; Z91.148 Patient's other noncompliance with medication regimen for other reason; Z59.01 Sheltered homelessness; Z79.899 Other long term (current) drug therapy; Z91.51 Personal history of suicidal behavior
CPT/HCPCS: 80306; 81003; 82075; 87636; 99285

== ENCOUNTER 2025-03-29 21:41 | Emergency (ER) | payer OTHER ==
--- NOTE | 2025-03-30 01:59 | ED ---
General Adult HPI - General Chief complaint: Urogenital Stated complaint: pelvis pain Time Seen by Provider: 03/29/25 22:33 Source: patient Mode of arrival: ambulatory Limitations: no limitations - History of Present Illness Initial comments: 25-year-old male presenting with chief complaint of right hip pain. This started 2 days ago after playing basketball. Thinks that he may have injured his muscle. Pain is worse when he is walking or lifting his leg, however he is still able to walk. He denies any testicular pain, swelling, penile discharge, abdominal pain, fever, redness. No numbness or tingling. No back pain. No pain that radiates down the leg. - Related Data Previous Rx's Medication Instructions Recorded Benztropine Mesylate [Cogentin] 1 mg PO BID 30 Days #60 tab 03/20/25 Divalproex ER [Depakote ER] 500 mg PO BID 30 Days #60 tab 03/20/25 QUEtiapine [SEROquel] 50 mg PO HS 30 Days #30 tab 03/20/25 Haloperidol Decanoate [Haldol D] 150 mg IM Q21D #1 each 03/21/25 Ibuprofen [Motrin] 600 mg PO Q6HR PRN tab 03/26/25 Nicotine 21Mg/24Hr Patch [Habitrol] 1 patch TRANSDERM DAILY 14 Days 03/26/25 #14 patch Allergies Allergy/AdvReac Type Severity Reaction Status Date / Time No Known Allergies Allergy Verified 03/29/25 21:49 Review of Systems ROS Statement: Those systems with pertinent positive or pertinent negative responses have been documented in the HPI. ROS Other: All systems not noted in ROS Statement are negative. Past Medical History Past Medical History: No Reported History History of Any Multi-Drug Resistant Organisms: None Reported Past Surgical History: Orthopedic Surgery Additional Past Surgical History / Comment(s): oral surgery, Past Anesthesia/Blood Transfusion Reactions: No Reported Reaction Past Psychological History: Anxiety, Depression, PTSD, Schizophrenia Smoking Status: Current every day smoker, Vaper Past Alcohol Use History: None Reported Past Drug Use History: Marijuana - Past Family History Father Family Medical History: Hyperlipidemia Family Family Medical History: No Reported History General Exam Limitations: no limitations General appearance: alert, in no apparent distress Head exam: Present: atraumatic, normocephalic, normal inspection Eye exam: Present: normal appearance, EOMI Neck exam: Present: normal inspection. Absent: meningismus Respiratory exam: Absent: respiratory distress Right Hip exam: Present: normal inspection, full ROM. Absent: tenderness, swelling, deformity Neurological exam: Present: alert, oriented X3 Psychiatric exam: Present: normal affect, normal mood Skin exam: Present: warm, dry Course Vital Signs 03/29/25 03/30/25 21:49 02:28 Temperature 98.5 F 98.2 F Pulse Rate 105 H 84 Respiratory 16 17 Rate Blood Pressure 118/73 117/79 O2 Sat by Pulse 98 98 Oximetry Medical Decision Making - Medical Decision Making Was pt. sent in by a medical professional or institution (, PA, IN HOME TUTOR, urgent care, hospital, or custodial...) When possible be specific @ -No Did you speak to anyone other than the patient for history (EMS, parent, family, police, friend...)? What history was obtained from this source @ -No Did you review nursing and triage notes (agree or disagree)? Why? @ -I reviewed and agree with nursing and triage notes Were old charts reviewed (outside hosp., previous admission, EMS record, old EKG, old radiological studies, urgent care reports/EKG's, custodial records)? Report findings @ -No old charts were reviewed Differential Diagnosis (chest pain, altered mental status, abdominal pain women, abdominal pain men, vaginal bleeding, weakness, fever, dyspnea, syncope, headache, dizziness, GI bleed, back pain, seizure, CVA, palpatations, mental he alth, musculoskeletal)? @ -Differential Musculoskeletal Muscular strain, contusion, ligament sprain, fracture, arthritis, septic arthritis, bursitis, cellulitis, muscle spasm, nerve compression, DVT, arterial occlusion, herpes zoster, electrolyte abnormality, tumor.... This is not meant to be in all inclusive list EKG interpreted by me (3pts min.). @ -As above X-rays interpreted by me (1pt min.). @ -Formal x-ray report is pending, by my interpretation there appears to be no acute osseous process of the right hip and AP pelvis CT interpreted by me (1pt min.). @ -None done U/S interpreted by me (1pt. min.). @ -None done What testing was considered but not performed or refused? (CT, X-rays, U/S, labs)? Why? @ -None What meds were considered but not given or refused? Why? @ -None Did you discuss the management of the patient with other professionals (professionals i.e. , PA, IN HOME TUTOR, lab, RT, psych nurse, social worker aide, supervisor mail carriers, teacher, risk officer, case management coordinator)? Give summary @ -No Was smoking cessation discussed for >3mins.? @ -No Was critical care preformed (if so, how long)? @ -No Were there social determinants of health that impacted care today? How? (Homelessness, low income, unemployed, alcoholism, drug addiction, transportation, low edu. Level, literacy, decrease access to med. care, usp, rehab)? @ -No Was there de-escalation of care discussed even if they declined (Discuss DNR or withdrawal of care, Hospice)? DNR status @ -No What co-morbidities impacted this encounter? (DM, HTN, Smoking, COPD, CAD, Cancer, CVA, ARF, Chemo, Hep., AIDS, mental health diagnosis, sleep apnea, morbid obesity)? @ -None Was patient admitted / discharged? Hospital course, mention meds given and route, prescriptions, significant lab abnormalities, going to OR and other pert inent info. @ -25-year-old male presenting with chief complaint of right hip pain. Started 2 days ago after playing basketball. Thinks he may have torn a muscle. He is still able to ambulate. He is having no testicular pain or swelling, no redness, no abdominal pain, no urinary symptoms, no penile discharge. History and physical examination are conducted. x-rays obtained, by my interpretation there appears to be no acute osseous process. I discussed results with the patient. He does not want any further workup. Follow-up with PCP. Report back to ER with any new or worsening symptoms. Discussed return parameters and answered all questions. Patient conveyed verbal understanding and agreed to the plan. I discussed this case in detail with my attending Dr. Turcios Undiagnosed new problem with uncertain prognosis? @ -No Drug Therapy requiring intensive monitoring for toxicity (Heparin, Nitro, Insulin, Cardizem)? @ -No Were any procedures done? @ -No Diagnosis/symptom? @ -Hip pain Acute, or Chronic, or Acute on Chronic? @ -Acute Uncomplicated (without systemic symptoms) or Complicated (systemic symptoms)? @ -Uncomplicated Side effects of treatment? @ -No Exacerbation, Progression, or Severe Exacerbation? @ -No Poses a threat to life or bodily function? How? (Chest pain, [place], [place], pneumonia, PE, COPD, DKA, ARF, appy, cholecystitis, CVA, Diverticulitis, Homicidal, [place] icidal, threat to staff... and all critical care pts) @ -Unlikely Disposition Clinical Impression: Hip pain Disposition: HOME SELF-CARE Condition: Good Instructions (If sedation given, give patient instructions): Hip Pain (ED) Additional Instructions: Follow-up with PCP. Report back to ER with any new or worsening symptoms. Is patient prescribed a controlled substance at d/c from ED?: No Referrals: None,Stated [Primary Care Provider] - 1-2 days Forms: Area PCPs Time of Disposition: 01:58
--- NOTE | 2025-03-30 02:22 | XR ---
EXAM: XR Pelvis and right hip, 3 Views CLINICAL HISTORY: ITS.REASON XR Reason: pain TECHNIQUE: Pelvis AP view. Frontal and lateral or oblique views of the right hip. COMPARISON: None FINDINGS: Bones/joints: Unremarkable. No acute fracture. No dislocation. Soft tissues: Likely soft tissue swelling of the right hip proximally. Other findings: No radiopaque foreign body. . IMPRESSION: Likely soft tissue swelling of the right hip proximally. Recommend clinical correlation. No fracture or dislocation noted. .
[2025-03-30 02:29] VITALS: BP 117/79; PULSE 84; RESP 17; TEMP 98.2
== END 2025-03-30 02:30 | disposition home or self-care (01) ==
LOC: EC 21:41
DX: M25.551 Pain in right hip (principal); F17.290 Nicotine dependence, other tobacco product, uncomplicated; Y93.67 Activity, basketball
CPT/HCPCS: 73502; 99283